=== PATIENT | female | born 1970 | race Caucasian/White ===

== ENCOUNTER 2020-01-10 10:01 | Emergency (ER) | payer OTHER, SELFPAY ==
[2020-01-10 10:46] VITALS: BP 119/70; PULSE 88; RESP 20; TEMP 36.8; O2SAT 97
--- NOTE | 2020-01-10 11:44 | ED.GENADULT ---
HPI - General Adult General Chief complaint: Upper Respiratory Infection Stated complaint: Cough/Chest Congestion/Ear Drainage Time Seen by Provider: 01/10/20 11:44 Source: patient Mode of arrival: ambulatory Limitations: no limitations History of Present Illness HPI narrative: 49-year-old female patient presents to the [facility] with complaints of cold symptoms for the past 2 weeks. Patient states that she is an active smoker. Patient states that she did get a flu shot this year. Patient states that she has had some pain to the left ear. Patient states is been draining some clear fluid for the past 2 weeks but for the past couple days it started draining some yellow fluid and having some pain as well as some pain behind the ear and soreness. Patient states that she has had a stuffy nose, runny nose, a cough and coughing up sputum. Patient states that she is short of breath at times denies any chest pain at this time. Patient states she has taken ibuprofen for her pain but denies any other medications Related Data Home Medications Medication Instructions Recorded Confirmed citalopram 20 mg PO DAILY 10/24/19 10/24/19 empagliflozin [Jardiance] 10 mg PO DAILY 10/24/19 10/24/19 furosemide 20 mg PO DAILY 10/24/19 10/24/19 glipizide 5 mg PO DAILY 10/24/19 01/10/20 lisinopril 20 mg PO DAILY 10/24/19 01/10/20 metformin 1,000 mg PO BID 10/24/19 01/10/20 metoprolol succinate 50 mg PO DAILY 10/24/19 01/10/20 simvastatin 40 mg PO DAILY 10/24/19 01/10/20 omeprazole 20 mg PO DAILY 01/10/20 01/10/20 Allergies Allergy/AdvReac Type Severity Reaction Status Date / Time Penicillins Allergy Unknown BLISTERS Verified 01/10/20 10:49 ALL OVER BODY. moxifloxacin AdvReac Unknown CAUSES Verified 01/10/20 10:49 PROBLEMS WITH HEART Review of Systems Review of Systems: Narrative: CONSTITUTIONAL: Denies fever, chills, or sweats. EYES: Denies visual changes, redness, or discharge. ENT: Positive rhinorrhea, congestion, denies sore throat, positive left otalgia. CARDIOVASCULAR: Denies chest pain, palpitations, or edema. RESPIRATORY: Positive cough with dyspnea. GASTROINTESTINAL: Denies abdominal pain, nausea, vomiting, or diarrhea. GENITOURINARY: Denies dysuria or hematuria. SKIN: Denies rash or itching. MUSCULOSKELETAL: Denies back pain, joint pain, or myalgia. NEUROLOGIC: Denies headache, numbness, or weakness. PSYCHIATRIC: Denies anxiety or depression. [facility] Past Medical History Medical History COPD (chronic obstructive pulmonary disease) Diabetes GERD (gastroesophageal reflux disease) Hyperlipidemia Hypertension Surgical History Surgical History Previous section Social History Social History Smoking packs per day: 0.5 Smoking cigarettes per day: 10.0 Years smoked: 30 Smoking pack-years: 15.00 Smoking status: Current every day smoker Comments At the time of my signature I agree with nursing past medical history, surgical, social, and family history. There is no relevant family history pertinent to the presenting complaint. Exam Narrative: Exam Narrative: GENERAL: Well-appearing, well-nourished, and in no acute distress. HEAD: Normocephalic, atraumatic. EYES: PERRLA and EOMI. ENT: Nares with erythema and edema noted bilaterally, patent, no rhinorrhea or epistaxis. Mucous membranes moist. Posterior pharynx with no erythema, tonsillar margin, exudates or lesions present. There is some erythema noted to the left TM with some drainage noted in the canal. NECK: Supple. No lymphadenopathy CHEST: Patient does have some tightness and wheezing noted to bilateral upper lower lobes on auscultation. No respiratory distress. HEART: Regular rate and rhythm. No murmur heard. Normal peripheral pulses. ABDOMEN: Soft, nontender, nondistended, no
[2020-01-10] MEDS: ALBUTEROL SULFATE NEB 2.5 MG/3 ML INH INHALATION (12:20)
[2020-01-10] MEDS: IPRATROPIUM BR 0.02% INH SOLN 0.5 MG/2.5 ML VIAL INHALATION (12:20)
== END 2020-01-10 12:53 | disposition home or self-care (01) ==
PROVIDERS: Emergency Provider Nurse Practitioner Family
DX: H66.92 Otitis media, unspecified, left ear (principal); J06.9 Acute upper respiratory infection, unspecified; F17.210 Nicotine dependence, cigarettes, uncomplicated; J44.9 Chronic obstructive pulmonary disease, unspecified; E11.9 Type 2 diabetes mellitus without complications; K21.9 Gastro-esophageal reflux disease without esophagitis; E78.5 Hyperlipidemia, unspecified; I10 Essential (primary) hypertension
CPT/HCPCS: 94640; 99213; G0463

== ENCOUNTER 2022-06-03 10:01 | Outpatient (CLI) | payer OTHER, SELFPAY ==
[2022-06-03 11:08] LABS: Hematocrit 46.8 % (37.0-47.0); Hemoglobin 15.8 g/dL (12.0-15.0); Mean Corpuscular HGB Conc 33.8 g/dl (32-36); Mean Corpuscular Volume 94.7 fl (80-100); Platelet Count Result 79 k/mm3 (150-375); Red Blood Count 4.94 M/mm3 (4.2-5.4); Red Cell Distribution Width 14.1 % (11.5-14.5); White Blood Count 5.2 K/mm3 (4.5-10.0)
[2022-06-03 11:18] LABS: INR 1.1; Prothrombin Time 13.8 Seconds (11.1-14.7)
[2022-06-03 11:20] LABS: Alanine Aminotransferase 44 U/L (6-35); Albumin Level 4.1 g/dL (3.5-5.1); Alkaline Phosphatase 188 U/L (38-126); Anion Gap 7 mmol/L (8-16); Aspartate Amino Transferase 40 U/L (14-36); Bilirubin,Total 0.9 mg/dL (0.2-1.3); Blood Urea Nitrogen 9 mg/dL (7-17); Calcium 9.1 mg/dL (8.4-10.2); Carbon Dioxide 27 mmol/L (22-30); Chloride 102 mmol/L (98-107); Estimated Glomerular Filt Rate > 60; Glucose 219 mg/dL (65-110); Sodium 136 mmol/L (137-145)
[2022-06-03 11:40] LABS: Iron 135 ug/dL (37-170)
[2022-06-03 11:50] LABS: Percent Iron Saturation 35 % (20-50)
[2022-06-03 12:12] LABS: Hepatitis B Surface Antigen Negative (Negative)
[2022-06-03 12:18] LABS: HAV RESULT Negative (Negative); Hepatitis B Core IgM Result Negative (Negative)
[2022-06-03 12:30] LABS: Hepatitis C Virus Antibody Negative (Negative)
[2022-06-07 06:34] LABS: Alpha-1-Antitrypsin, QN 185 mg/dL (83-199); Ceruloplasmin 32 mg/dL (18-53)
[2022-06-07 15:06] LABS: Alpha Fetoprotein Tumor Marker 3.4 ng/mL (<6.1)
[2022-06-08 22:49] LABS: LKM 1 Antibody <=20.0 U (<=20.0)
[2022-06-09 23:10] LABS: Mitochondrial (M2) Ab (IgG) <=20.0 U (<=20.0)
[2022-06-10 17:12] LABS: ALT 34 U/L (6-29); Alpha-2-Macroglobulin 288 mg/dL (106-279); Apolipoprotein A1 135 mg/dL (101-198); Fibrosis Score 0.64; Fibrosis Stage F3; GGT 273 U/L (3-70); Haptoglobin 139 mg/dL (43-212); Necroinflammat Act Grade A0-A1; Total Bilirubin 0.7 mg/dL (0.2-1.2)
== END 2022-06-03 10:02 | disposition home or self-care (01) ==
LOC: ANHLAB 10:03
PROVIDERS: PCP Nurse Practitioner Family; Visit Provider Nurse Practitioner Family
DX: R16.2 Hepatomegaly with splenomegaly, not elsewhere classified (principal)
CPT/HCPCS: 36415; 80053; 80074; 81596; 82103; 82105; 82390; 82728; 83520; 83540; 83550; 85027; 85610; 86376

== ENCOUNTER 2022-06-08 10:29 | Emergency (ER) | payer OTHER, SELFPAY ==
--- NOTE | ~2022-06-08 | XR_ITS ---
EXAMINATION: XR foot LT min 3V DATE: 06/08/2022 10:57 INDICATION: Pain and swelling at the lateral aspect of the left forefoot. TECHNIQUE: Dorsoplantar, two oblique and lateral views of the left foot were obtained. COMPARISON: None. FINDINGS: Mild hallux valgus. Alignment is otherwise normal. No fracture. Mild osteoarthritis at the first meta tarsophalangeal and a few interphalangeal joints. No erosions or periosteal reaction. Mild soft tissu e swelling over the dorsolateral aspect of the forefoot. IMPRESSION: 1. No acute osseous abnormality. Reviewed, dictated and finalized at location A.
[2022-06-08 10:36] VITALS: BP 141/76; PULSE 92; RESP 20; TEMP 36.4; O2SAT 97
--- NOTE | 2022-06-08 10:48 | ED.GENADULT ---
HPI - General Adult General Chief complaint: Extremity Injury, Lower Stated complaint: Left foot injury Source: patient Mode of arrival: ambulatory Limitations: no limitations History of Present Illness HPI narrative: Patient presents for evaluation of pain in her left foot since yesterday. She woke from sleep with her pain. Pain is constant, 10/10, sharp, worse with weight bearing and ambulation. The majority of her pain is in plantar and lateral aspect of the foot. No recent injury. She wore high heels the day prior. She states she jumped off a porch a few years ago and had pain thereafter. She did not seek medical attention at that time. Pain has been bothersome since that time. She denies paresthesias. She is diabetic but does not check her BS. She is not taking any medication to assist with her symptoms. No additional complaints or concerns. Related Data Home Medications Medication Instructions Recorded Confirmed glipizide 5 mg tablet 5 mg PO DAILY 10/24/19 06/08/22 lisinopril 20 mg tablet 20 mg PO DAILY 10/24/19 06/08/22 metformin 1,000 mg tablet 1,000 mg PO BID 10/24/19 06/08/22 metoprolol succinate 50 mg 50 mg PO DAILY 10/24/19 06/08/22 tablet,extended release 24 hr simvastatin 40 mg tablet 40 mg PO DAILY 10/24/19 06/08/22 omeprazole 20 mg capsule,delayed 20 mg PO DAILY 01/10/20 06/08/22 release cetirizine 10 mg tablet 10 mg PO DAILY PRN Allergy Symptoms 12/21/21 06/08/22 empagliflozin 10 mg tablet 10 mg PO DAILY 12/21/21 06/08/22 (Jardiance) venlafaxine 75 mg tablet 75 mg PO DAILY 12/21/21 06/08/22 Allergies Allergy/AdvReac Type Severity Reaction Status Date / Time Penicillins Allergy Unknown BLISTERS Verified 06/08/22 10:42 ALL OVER BODY. moxifloxacin AdvReac Unknown CAUSES Verified 06/08/22 10:42 PROBLEMS WITH HEART Review of Systems Review of Systems: CONSTITUTIONAL: Denies fever, chills, or sweats. EYES: Denies visual changes, redness, or discharge. ENT: Denies rhinorrhea, congestion, sore throat, or otalgia. CARDIOVASCULAR: Denies chest pain, palpitations, or edema. RESPIRATORY: Denies cough or dyspnea. GASTROINTESTINAL: Denies abdominal pain, nausea, vomiting, or diarrhea. GENITOURINARY: Denies dysuria or hematuria. SKIN: Denies rash or itching. MUSCULOSKELETAL:Reports pain in the left foot NEUROLOGIC: Denies headache, numbness, dizziness, or weakness. PSYCHIATRIC: Denies anxiety or depression. [facility] Past Medical History Medical History COPD (chronic obstructive pulmonary disease) Diabetes GERD (gastroesophageal reflux disease) Hepatosplenomegaly History of myocarditis Hyperlipidemia Hypertension Surgical History Surgical History Previous section Family History Family History Father Acute myocardial infarction Social History Social History Smoking packs per day: 0.5 Smoking cigarettes per day: 10.0 Years smoked: 30 Smoking pack-years: 15.00 Smoking status: Current every day smoker Alcohol intake: current Alcohol use details: social Substance use: never Living arrangements: alone Gender identity (if verbalized by the patient): Female Sexual Orientation (if Verbalized by the Patient): Straight or Heterosexual Spiritual care concerns: No Exam Narrative: GENERAL: Well-appearing, well-nourished, and in no acute distress. HEAD: Normocephalic, atraumatic. EYES: PERRLA and EOMI. ENT: Nares clear, no rhinorrhea or epistaxis. Mucous membranes moist. Oropharynx without tonsillar hypertrophy exudate or other lesions. Bilateral TMs pearly lugo nonbulging NECK: Supple. No adenopathy or masses. No carotid bruits or JVD CHEST: Clear to auscultation. No respiratory distress. No whee
== END 2022-06-08 11:31 | disposition home or self-care (01) ==
PROVIDERS: Emergency Provider Nurse Practitioner; PCP Nurse Practitioner Family
DX: M25.572 Pain in left ankle and joints of left foot (principal); F17.210 Nicotine dependence, cigarettes, uncomplicated; J44.9 Chronic obstructive pulmonary disease, unspecified; E11.9 Type 2 diabetes mellitus without complications; K21.9 Gastro-esophageal reflux disease without esophagitis; E78.5 Hyperlipidemia, unspecified; I10 Essential (primary) hypertension
CPT/HCPCS: 73630; 99213; G0463

== ENCOUNTER → 2022-06-18 08:32 | Outpatient (CLI) | payer OTHER, SELFPAY ==
--- NOTE | ~2022-06-18 | US_ITS ---
EXAMINATION: US abdomen limited DATE: 06/18/2022 09:03 INDICATION: Hepatosplenomegaly TECHNIQUE: Multiple grayscale and Doppler ultrasound images of the abdomen were obtained. COMPARISON: None available FINDINGS: The head and body of the pancreas are normal. The pancreatic tail is obscured by bowel gas. The liver demonstrates increased echogenicity, heterogenous echotexture, and decreased through trans mission. There is mild nodularity of the liver surface. Normal hepatopetal flow in the main portal ve in. The gallbladder is normal with no abnormal wall thickening, pericholecystic fluid or stones. The normal common bile duct measures 6 mm. There was no sonographic Chou sign. The spleen is normal in appearance and measures 13.3 cm. IMPRESSION: 1. Cirrhosis. Reviewed, dictated and finalized at location L. IMPRESSION: 1. Cirrhosis.
== END ==
LOC: EXPGOSH 14:13 → EXPGOSHRAD 14:30
PROVIDERS: PCP Nurse Practitioner Family; Visit Provider Nurse Practitioner Family
DX: R16.2 Hepatomegaly with splenomegaly, not elsewhere classified (principal); K74.60 Unspecified cirrhosis of liver
CPT/HCPCS: 76705

== ENCOUNTER 2022-09-09 11:13 | Emergency (ER) | payer OTHER, SELFPAY ==
--- NOTE | 2022-09-09 11:15 | ED.URI ---
HPI - URI/Sore Throat General Chief Complaint: Upper Respiratory Infection Stated Complaint: Chest Congestion/Cough Time Seen by Provider: 09/09/22 11:15 Source: patient Mode of arrival: ambulatory Limitations: no limitations History of Present Illness HPI Narrative: Ms. Washington is a 52-year-old female patient presenting to the clinic today with complaints of cough and chest congestion x2 to 3 weeks. She report she has had a productive cough at times with yellow phlegm. She denies any fever or chills. History of COPD. Has mild shortness of breath at times. She denies any known exposure to anyone with COVID, flu, or strep MD elicited complaint: cough and other (Chest congestion) Related Data Home Medications Medication Instructions Recorded Confirmed glipizide 5 mg tablet 5 mg PO DAILY 10/24/19 06/24/22 lisinopril 20 mg tablet 20 mg PO DAILY 10/24/19 06/24/22 metformin 1,000 mg tablet 1,000 mg PO BID 10/24/19 06/24/22 metoprolol succinate 50 mg 50 mg PO DAILY 10/24/19 06/24/22 tablet,extended release 24 hr simvastatin 40 mg tablet 40 mg PO DAILY 10/24/19 06/24/22 cetirizine 10 mg tablet 10 mg PO DAILY PRN Allergy Symptoms 12/21/21 06/24/22 empagliflozin 10 mg tablet 10 mg PO DAILY 12/21/21 06/24/22 (Jardiance) venlafaxine 75 mg tablet 75 mg PO DAILY 12/21/21 06/24/22 Allergies Allergy/AdvReac Type Severity Reaction Status Date / Time Penicillins Allergy Unknown BLISTERS Verified 06/24/22 09:27 ALL OVER BODY. moxifloxacin AdvReac Unknown CAUSES Verified 06/24/22 09:27 PROBLEMS WITH HEART Review of Systems Review of Systems: Pertinent positives per HPI. Patient denies any fever, chills, rash, headache, visual changes, dizziness, shortness of breath, chest pain, palpitations, nausea, vomiting, diarrhea, constipation, abdominal pain, or any urinary issues. [facility] Past Medical History Medical History Change in voice Cirrhosis COPD (chronic obstructive pulmonary disease) Diabetes Elevated liver enzymes GERD (gastroesophageal reflux disease) Hepatosplenomegaly History of myocarditis Hyperlipidemia Hypertension Obese Tobacco use Surgical History Surgical History Previous section Family History Family History Father Acute myocardial infarction Social History Social History Smoking packs per day: 0.5 Smoking cigarettes per day: 10.0 Years smoked: 30 Smoking pack-years: 15.00 Smoking status: Current every day smoker Alcohol intake: current Alcohol use details: social Substance use: never Gender identity (if verbalized by the patient): Female Sexual Orientation (if Verbalized by the Patient): Straight or Heterosexual Spiritual care concerns: No Comments At the time of my signature, I reviewed and agree with the nursing past medical, surgical, social, and family history. There is no relevant family history pertinent to the patient complaint. Exam Narrative: General: Well-developed, morbidly obese, in no apparent distress Head: Normocephalic, atraumatic Eyes: Pupils equally round and reactive to light bilaterally, EOM intact, sclera and conjunctive clear, no discharge, lids normal Ears: Left TMs intact and dull, right TM intact, red, with bulging, ear canals clear, no drainage, grossly hearing normal. Nose: Nares patent, clear nasal discharge, mild inflammation, no sinus tenderness. Mouth: Oral pharynx without lesions or masses, good dentition, MMM. Postnasal drip Neck: Supple, trachea midline, no enlargement of anterior or posterior cervical nodes, no thyroid masses or goiter palpable. Cardio: Regular rate and rhythm, s1 and s2 normal, no murmur appreciated. Resp: Expiratory wheezing with mild rhonchi, no rales or rubs Course Course Emergency Course:
[2022-09-09 11:24] VITALS: BP 122/60; PULSE 88; RESP 20; TEMP 36.4; O2SAT 97
== END 2022-09-09 11:51 | disposition home or self-care (01) ==
PROVIDERS: Emergency Provider Nurse Practitioner Family; PCP Nurse Practitioner Family
DX: H66.91 Otitis media, unspecified, right ear (principal); J40 Bronchitis, not specified as acute or chronic; F17.210 Nicotine dependence, cigarettes, uncomplicated; J44.9 Chronic obstructive pulmonary disease, unspecified; E11.9 Type 2 diabetes mellitus without complications; K21.9 Gastro-esophageal reflux disease without esophagitis; E78.5 Hyperlipidemia, unspecified; I10 Essential (primary) hypertension; E66.9 Obesity, unspecified; Z68.42 Body mass index [BMI] 45.0-49.9, adult; K74.60 Unspecified cirrhosis of liver; Z79.84 Long term (current) use of oral hypoglycemic drugs
CPT/HCPCS: 99213; G0463

== ENCOUNTER 2022-12-04 17:47 | Emergency (ER) | payer OTHER, SELFPAY ==
[2022-12-04 17:50] VITALS: BP 116/85; PULSE 110; RESP 20; TEMP 37.1; O2SAT 97
[2022-12-04 17:58] VITALS: BP 116/85; PULSE 110; RESP 20; TEMP 37.1; O2SAT 97
--- NOTE | 2022-12-04 18:06 | ED.URI ---
HPI - URI/Sore Throat General Chief Complaint: Upper Respiratory Infection Stated Complaint: cough Time Seen by Provider: 12/04/22 18:07 History of Present Illness HPI Narrative: Patient presents with a cough. Patient states she was diagnosed with pneumonia a couple weeks ago and treated with antibiotic which she thinks has resolved but she continues to have a cough. No shortness of breath and no chest pain. No fever. Patient is not taking anything [id number] for her cough. Related Data Home Medications Medication Instructions Recorded Confirmed glipizide 5 mg tablet 5 mg PO DAILY 10/24/19 12/04/22 lisinopril 20 mg tablet 20 mg PO DAILY 10/24/19 12/04/22 metformin 1,000 mg tablet 1,000 mg PO BID 10/24/19 12/04/22 metoprolol succinate 50 mg 50 mg PO DAILY 10/24/19 12/04/22 tablet,extended release 24 hr simvastatin 40 mg tablet 40 mg PO DAILY 10/24/19 12/04/22 cetirizine 10 mg tablet 10 mg PO DAILY PRN Allergy Symptoms 12/21/21 12/04/22 empagliflozin 10 mg tablet 10 mg PO DAILY 12/21/21 12/04/22 (Jardiance) venlafaxine 75 mg tablet 75 mg PO DAILY 12/21/21 12/04/22 montelukast 10 mg tablet 10 mg PO DIRECTED 12/04/22 12/04/22 Allergies Allergy/AdvReac Type Severity Reaction Status Date / Time Penicillins Allergy Unknown BLISTERS Verified 12/04/22 17:55 ALL OVER BODY. moxifloxacin AdvReac Unknown CAUSES Verified 12/04/22 17:55 PROBLEMS WITH HEART Review of Systems Review of Systems: CONSTITUTIONAL: Denies chills, or sweats. Reports fever and generalized body aches EYES: Denies visual changes, redness, or discharge. ENT: Denies otalgia. Reports nasal congestion runny nose and sore throat CARDIOVASCULAR: Denies chest pain, palpitations, or edema. RESPIRATORY: Denies dyspnea. Reports occasional cough GASTROINTESTINAL: Denies abdominal pain, nausea, vomiting, or diarrhea. GENITOURINARY: Denies dysuria or hematuria. SKIN: Denies rash or itching. MUSCULOSKELETAL: Denies back pain, joint pain, or myalgia. Reports generalized body aches NEUROLOGIC: Denies headache, numbness, or weakness. PSYCHIATRIC: Denies anxiety or depression. [facility] Past Medical History Medical History Change in voice Cirrhosis COPD (chronic obstructive pulmonary disease) Diabetes Elevated liver enzymes GERD (gastroesophageal reflux disease) Hepatosplenomegaly History of myocarditis Hyperlipidemia Hypertension Obese Tobacco use Surgical History Surgical History Previous section Family History Family History Father Acute myocardial infarction Social History Social History Smoking packs per day: 0.5 Smoking cigarettes per day: 10.0 Years smoked: 30 Smoking pack-years: 15.00 Smoking status: Current every day smoker Alcohol intake: current Alcohol use details: social Substance use: never Gender identity (if verbalized by the patient): Female Sexual Orientation (if Verbalized by the Patient): Straight or Heterosexual Spiritual care concerns: No Comments At time of signature, agree with nursing past medical, surgical, social and family history. There is no relevant family history pertinent to the presenting complaint Exam Narrative: GENERAL: Well-appearing, well-nourished, and in no acute distress. HEAD: Normocephalic, atraumatic. EYES: PERRLA and EOMI. ENT: Nares clear, no rhinorrhea or epistaxis. Mucous membranes moist. NECK: Supple. CHEST: Clear to auscultation. No respiratory distress. Few scattered expiratory wheezes otherwise clear all lung cervantes HEART: Regular rate and rhythm. No murmur heard. Normal peripheral pulses. ABDOMEN: Soft, nontender, nondistended, normal active bowel sounds. EXTREMITIES: Normal range of motion. No edema. SKIN: Warm, dry, no rash. NEURO: No focal
== END 2022-12-04 18:14 | disposition home or self-care (01) ==
PROVIDERS: Emergency Provider Nurse Practitioner Family; PCP Nurse Practitioner Family
DX: J06.9 Acute upper respiratory infection, unspecified (principal); J40 Bronchitis, not specified as acute or chronic; F17.210 Nicotine dependence, cigarettes, uncomplicated; K74.60 Unspecified cirrhosis of liver; J44.9 Chronic obstructive pulmonary disease, unspecified; E11.9 Type 2 diabetes mellitus without complications; K21.9 Gastro-esophageal reflux disease without esophagitis; E78.5 Hyperlipidemia, unspecified; I10 Essential (primary) hypertension
CPT/HCPCS: 99213; G0463

== ENCOUNTER 2022-12-14 09:47 | Outpatient (CLI) | payer OTHER, SELFPAY | END 2022-12-14 09:48 | disposition home or self-care (01) | LOC: ANHBWCAUD 09:47 | PROVIDERS: PCP Nurse Practitioner Family; Visit Provider Otolaryngology | DX: H66.91 Otitis media, unspecified, right ear (principal) | CPT/HCPCS: 92557; 92567 ==

== ENCOUNTER 2024-03-27 16:03 | Outpatient (CLI) | payer OTHER, SELFPAY ==
[2024-03-27 16:57] LABS: Hematocrit 50.3 % (37.0-47.0); Hemoglobin 16.9 g/dL (12.0-15.0); Immature Platelet Fraction Pct 11.3 % (0.9-11.2); Mean Corpuscular HGB Conc 33.6 g/dl (32-36); Mean Corpuscular Hemoglobin 31.3 pg (26-34); Mean Corpuscular Volume 93.1 fl (80-100); Mean Platelet Volume 12.1 fl (7.4-10.4); Platelet Count Result 100 k/mm3 (150-375); Red Cell Distribution Width 13.7 % (11.5-14.5); White Blood Count 5.3 K/mm3 (4.5-10.0)
[2024-03-27 17:08] LABS: Prothrombin Time 13.9 Seconds (11.1-14.7)
[2024-03-27 17:09] LABS: Alanine Aminotransferase 58 U/L (6-35); Albumin Level 4.3 g/dL (3.5-5.1); Alkaline Phosphatase 190 U/L (38-126); Anion Gap 8 mmol/L (4-12); Aspartate Amino Transferase 43 U/L (14-36); Bilirubin,Total 0.8 mg/dL (0.2-1.3); Blood Urea Nitrogen 9 mg/dL (7-17); Calcium 9.8 mg/dL (8.4-10.2); Carbon Dioxide 25 mmol/L (22-30); Chloride 105 mmol/L (98-107); Estimated Glomerular Filt Rate > 60; Glucose 169 mg/dL (65-110); Potassium 3.7 mmol/L (3.4-5.0); Sodium 138 mmol/L (137-145)
[2024-03-29 11:08] LABS: Alpha Fetoprotein Tumor Marker 2.6 ng/mL
== END 2024-03-27 16:04 | disposition home or self-care (01) ==
LOC: ANHLAB 16:04
PROVIDERS: PCP Nurse Practitioner Family; Visit Provider Nurse Practitioner Family
DX: K74.60 Unspecified cirrhosis of liver (principal); R74.8 Abnormal levels of other serum enzymes
CPT/HCPCS: 36415; 80053; 82105; 85027; 85055; 85610

== ENCOUNTER 2024-10-08 12:25 | Emergency (ER) | payer OTHER, SELFPAY ==
[2024-10-08 12:45] VITALS: BP 109/73; PULSE 93; RESP 20; TEMP 36.7; O2SAT 98
--- NOTE | 2024-10-08 13:39 | ED_ITS ---
HPI - URI/Sore Throat General Chief Complaint: Upper Respiratory Infection Stated Complaint: Cough/Chest Congestion Time Seen by Provider: 10/08/24 13:20 Source: patient, RN notes reviewed and old records reviewed Mode of arrival: ambulatory Limitations: no limitations History of Present Illness HPI Narrative: 54 year old female who presents to express care with complaints of cough, post nasal congestion and drainage, chest congestion and some ear pain for the past 2 days. Patient has history of COPD and continues to smoke 1/2 ppd of cigarettes and has inhaler and has not used it lately or taken any OTC medications for her symptoms.Patient has no fevers noted or any acute dyspnea. MD elicited complaint: cough, rhinorrhea and nasal congestion Pertinent past history: COPD and other (tobacco abuse) Onset (ago): day(s) (2) Consistency: constant Severity: moderate Able to tolerate fluids by mouth: Yes Treatments prior to arrival: none Related Data Home Medications Medication Instructions Recorded Confirmed metformin 1,000 mg tablet 1,000 mg PO BID 10/24/19 10/08/24 metoprolol succinate 50 mg 50 mg PO DAILY 10/24/19 10/08/24 tablet,extended release 24 hr simvastatin 40 mg tablet 40 mg PO DAILY 10/24/19 10/08/24 cetirizine 10 mg tablet 10 mg PO DAILY PRN Allergy Symptoms 12/21/21 10/08/24 empagliflozin 10 mg tablet 10 mg PO DAILY 12/21/21 10/08/24 (Jardiance) montelukast 10 mg tablet 10 mg PO DIRECTED 12/04/22 10/08/24 dulaglutide 4.5 mg/0.5 mL 4.5 mg subcut WEEKLY 03/27/24 10/08/24 subcutaneous pen injector (Trulicity) losartan 25 mg tablet 25 mg PO DAILY 03/27/24 10/08/24 phentermine 30 mg capsule 30 mg PO DAILY 03/27/24 10/08/24 oxybutynin chloride 2.5 mg tablet 2.5 mg PO DAILY 06/22/24 10/08/24 Allergies Allergy/AdvReac Type Severity Reaction Status Date / Time moxifloxacin Allergy Unknown CAUSES Verified 06/22/24 11:21 PROBLEMS WITH HEART Penicillins Allergy Unknown BLISTERS Verified 03/27/24 14:51 ALL OVER BODY. Review of Systems Review of Systems: CONSTITUTIONAL: Denies malaise, chills, sweats, or fever. EYES: Denies visual changes, redness, or discharge. ENT: Reports rhinorrhea, congestion, sinus pain,positive for otalgia and sore throat. CARDIOVASCULAR: Denies chest pain, palpitations, or edema. RESPIRATORY: Reports cough.? Denies dyspnea. GASTROINTESTINAL: Denies abdominal pain, nausea, vomiting, diarrhea SKIN: Denies rash or itching. MUSCULOSKELETAL: Denies myalgia. NEUROLOGIC: Denies headache. All systems reviewed & are unremarkable except as noted in HPI and below PMFSH Past Medical History Medical History Barretts esophagus Change in voice Cirrhosis COPD (chronic obstructive pulmonary disease) Diabetes Elevated liver enzymes GERD (gastroesophageal reflux disease) Hepatosplenomegaly History of myocarditis Hyperlipidemia Hypertension Obese Tobacco use Surgical History Surgical History Previous section Family History Family History Father Acute myocardial infarction Social History Social History Smoking packs per day: 0.5 Smoking cigarettes per day: 10.0 Years smoked: 30 Smoking pack-years: 15.00 Smoking status: Current every day smoker Tobacco type: cigarettes Alcohol intake: current Alcohol use details: social Substance use: never Substance use type: does not use Living arrangements: alone Gender identity (if verbalized by the patient): Female Sexual Orientation (if Verbalized by the Patient): Straight or Heterosexual Spiritual care concerns: No Comments At time of signature, agree with nursing past medical, surgical, social and family history. There is no relevant family history pertinent to the presenting complaint Exam Narrative: GENERAL: Well-appearing, well-nourished, and in no acute distress. HEAD: Normocephalic EYES: PERRLA, conjunctivae clear ENT: Nares clear, turbinates edematous and erythematous, clear discharge. Mucous membranes moist. TM pearly lugo with dull light reflex bilaterally; no tragal tenderness. Oropharynx erythematous without lesions. Tonsils not enlarged and without exudate, no drooling, no hoarseness, no trismus, uvula midline.post nasal discharge NECK: Supple. No lymphadenopathy CHEST: scattered wheezing on auscultation, breath sounds equal. positive for wheezing, no rhonchi, rales, or stridor. No respiratory distress, speaks in full sentences.cough present, SAO2 98% on room air HEART: Regular rate and rhythm. No murmur heard. SKIN: Warm, dry, no rash. NEURO: Alert and oriented x3. PSYCH: Normal mood and affect Course Course Emergency Course: Patient is aware of diagnosis, understands and agrees to treatment plan.? Anticipatory guidance given.? Patient agrees to follow-up as directed and is aware of reasons to seek care at the emergency department. Portions of this record may have been created with voice recognition software Level of Care: Express Care Visit Vital Signs Vital signs: Vital Signs Temperature 36.7 C 10/08/24 12:45 Pulse Rate 93 10/08/24 12:45 Respiratory Rate 20 10/08/24 12:45 Blood Pressure 109/73 10/08/24 12:45 Pulse Oximetry 98 10/08/24 12:45 Temperature 36.7 C 10/08/24 12:45 Pulse Rate 93 10/08/24 12:45 Respiratory Rate 20 10/08/24 12:45 Blood Pressure 109/73 10/08/24 12:45 Pulse Oximetry 98 10/08/24 12:45 Reviewed MDM - URI/Sore Throat MDM Narrative Medical decision making narrative: Differential diagnosis considered: Painter virus, strep pharyngitis, allergic rhinitis, upper respiratory tract infection, sinusitis, rhinosinusitis, nasopharyngitis. viral pharyngitis, otitis media, otitis externa, pneumonia, bronchitis, viral cough syndrome, viral syndrome, and influenza.? Exam findings show no acute concerns or changes; patient is non-toxic appearing and is in no distress.? Patient is appropriate for outpatient treatment and follow-up. Differential Diagnosis Differential diagnosis: Likely upper respiratory infection, otitis media, viral infection and other (COPD exacerbation) Medical Records Attestation: I reviewed the patient's medical records. Lab Data Attestation: I reviewed the patient's lab results. Critical Care Time Critical Care Time Critical Care Time: No Discharge Plan Discharge Clinical Impression: COPD exacerbation Patient Disposition: Home, Self-Care Condition: Stable Instructions: Antibiotic Form, COPD (Chronic Obstructive Pulmonary Disease) (ED) Additional Instructions: Increase fluids especially juices and water [id number] cough and cold medicine of your choice for your symptoms Zyrtec . Claritin or Anastacia daily with Coricidin decongestant Cough tablets as directed for cough--do not bite, chew or suck on--swallow whole Continue your inhaler/nebulizer as directed Steroids as directed--take with food, monitor your glucose levels daily and maintain your diet restriction heat to the face 20-30 minutes 4-6 times a day for pain Salt water gargles, throat lozenges or throat sprays as desired If your symptoms persist, change or worsen significantly before you can contact your personal physician then please, without delay, go to the emergency department for further evaluation. Follow-up with PCP in 7-10 days or sooner if needed Quit smoking Prescriptions: New prednisone 20 mg tablet 20 mg PO BID Qty: 10 0RF Rx Instructions: take with food am and early PM benzonatate 200 mg capsule 200 mg PO TID PRN (Reason: cough) Qty: 20 0RF No Action metoprolol succinate 50 mg Tablet Extended Release 24 Hr 50 mg PO DAILY simvastatin 40 mg Tablet 40 mg PO DAILY metformin 1,000 mg Tablet 1,000 mg PO BID montelukast 10 mg tablet 10 mg PO DIRECTED (DME) Aerochamber MV Spacer See Rx Instructions .Route Qty: 1 0RF Rx Instructions: As directed Jardiance 10 mg tablet 10 mg PO DAILY cetirizine 10 mg tablet 10 mg PO DAILY PRN (Reason: Allergy Symptoms) losartan 25 mg tablet 25 mg PO DAILY phentermine 30 mg capsule 30 mg PO DAILY Rx Instructions: must administer 2 hours after breakfast Trulicity 4.5 mg/0.5 mL pen injector 4.5 mg subcut WEEKLY oxybutynin chloride 2.5 mg tablet 2.5 mg PO DAILY omeprazole 20 mg capsule,delayed release(DR/EC) See Rx Instructions .ROUTE .COMPLEX Qty: 180 3RF Dose Instruction: TAKE 2 CAPSULES(40 MG) BY MOUTH DAILY Rx Instructions: TAKE 2 CAPSULES(40 MG) BY MOUTH DAILY Follow-up/Referrals: Alyx,Amita Mack APN [Primary Care Provider] - Time of Disposition: 14:02 [place] Coma Scale Eyes: Open Verbal: Oriented and Alert Motor: Follows Commands [place] Coma Total Score: 15
== END 2024-10-08 14:10 | disposition home or self-care (01) ==
PROVIDERS: Emergency Provider Registered Nurse; PCP Nurse Practitioner Family
DX: J44.1 Chronic obstructive pulmonary disease with (acute) exacerbation (principal); F17.210 Nicotine dependence, cigarettes, uncomplicated; I10 Essential (primary) hypertension; E11.9 Type 2 diabetes mellitus without complications; Z79.84 Long term (current) use of oral hypoglycemic drugs; K22.70 Barrett's esophagus without dysplasia; K74.60 Unspecified cirrhosis of liver; K21.9 Gastro-esophageal reflux disease without esophagitis; E78.5 Hyperlipidemia, unspecified; E66.9 Obesity, unspecified; Z68.41 Body mass index [BMI] 40.0-44.9, adult
CPT/HCPCS: 99213; G0463

== ENCOUNTER 2025-04-20 17:19 | Emergency (ER) | payer OTHER, SELFPAY ==
--- NOTE | ~2025-04-20 | XR_ITS ---
[id number] Ordering provider: Katya Waldrop NP History: . fall. rt. rib pain . Comparison: None. FINDINGS: BONES: Highly suggestive fracture of the right eighth rib. LUNGS: No effusions or infiltrates. No pneumothorax. SOFT TISSUES: Normal. IMPRESSION: Highly suggestive fracture of the right eighth rib. Follow-up advised. Reviewed, dictated and finalized at location A.
--- OUTSIDE RECORDS SUMMARY | 2025-04-20 17:29 | XMS_ITS | Data Portability ---
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 Plan of Treatment Reminders Order Date Submit Date Provider Last Modified By Organization Details Last Modified Time Details Appointments ANY 2024 09:15A M Shmuel Thakkar MD Not available Not available Not available ANY 2024 08:30A M Amita Johnson NO[employer] TESTER, [employer] Not available Not available Not available Lab HbA1c (hemoglob in A1c), blood 2024 025 In-Office Order, Internal Use Only DO Not Attach Compendium DO Not Attach Compendium, Do Not Delete/merge, [id number] 03/28/2025 10:10:56 rapid SARS CoV 2 Ag, QL IA, respirato ry specimen 2024 025 In-Office Order, Internal Use Only DO Not Attach Compendium DO Not Attach Compendium, Do Not Delete/merge, [id number] 12/26/2024 16:01:37 rapid flu (A+B) 2024 025 In-Office Order, Internal Use Only DO Not Attach Compendium DO Not Attach Compendium, Do Not Delete/merge, [id number] 12/26/2024 16:01:37 Referral None recorded. Procedures None recorded. Surgeries None recorded. Imaging CT, angiogram , coronary arteries, w/ contrast 2024 025 [facility] - [address], [address] [place], [address], 04/03/2025 10:21:56 XR, chest, 2 [facility], [address] [place], [address], 01/31/2025 16:16:04 Medication Orders Jardiance 25 mg tablet [facility]24 [facility], [address], [place], [place], [id number], 03/28/2025 10:10:46 nystatin 100,000 unit/gram topical cream 2024 [facility], [address], [place], [place], [id number], 03/28/2025 10:11:50 fluconazo le 150 mg tablet 2024 [facility], [address], [place], [place], [id number], 03/28/2025 10:10:44 Lasix 20 mg tablet 2024 [facility], [address], [place], [place], [id number], 03/05/2025 15:05:39 potassium chloride ER 20 mEq tablet,ex tended release 2024 [facility], [address], [place], [place], [id number], 03/05/2025 15:05:38 cefdinir 300 mg capsule 2024 [facility], [address], [place], [place], [id number], 03/05/2025 14:37:57 albuterol sulfate 2.5 mg/3 mL (0.083 %) solution for nebulizat ion 2024 Not available 02/12/2025 11:16:38 Symbicort 80 mcg-4.5 mcg/actua tion HFA aerosol inhaler 2024 [facility] #50862, [address], [place], [place], [id number], 03/05/2025 14:38:14 doxycycli ne hyclate 100 mg capsule 2024 [facility] #53844, [address], [place], [place], [id number], 01/31/2025 14:34:27 benzonata te 200 mg capsule 2024 [facility] #49461, [address], [place], [place], [id number], 01/31/2025 14:34:21 Patient TargetsNo targets recorded. Patient Instructions Encounter Date Encounter Id Patient Instructions Last Modified By Organization Details Last Modified Time 12/26/2024 [id number] A healthy lifest yle: care instructions Not available 12/26/2024 16:11:14 cough: care instructions Not available 12/26/2024 16:01:37 Take all antibio tics prescribed to you. If any fever or increase in pain, call/return to office. Not available 12/26/2024 16:09:22 keep f/u as planned Not availa ble 12/26/2024 16:09:59 01/31/2025 [id number] A healthy lifest yle: care instructions Not available 01/31/2025 14:49:54 cough: care instructions Not available 01/31/2025 14:49:54 chronic obstruct manny pulmonary disease (COPD): care instructions Not available 01/31/2025 16:05:04 learning about c opd and how to prevent lung infections Not available 01/31/2025 16:05:04 If any fever or increase in pain, call/return to office. Not available 01/31/2025 16:05:48 keep f/u as planned Not availa ble 01/31/2025 14:48:30 02/12/2025 [id number] ear infection (otitis media): care instructions [email or web address] Not available 02/12/2025 11:11:18 COPD exacerbatio n plan: care instructions [email or web address] Not available 02/12/2025 11:11:18 chronic obstruct manny pulmonary disease (COPD) flare-ups: care instructions [email or web address] Not available 02/12/2025 11:11:18 Plan of care has been discussed with patient including expected therapeutic benefits and potential side effects of prescribed medication and treatments. Patient verbalizes understanding and is in agreement with the plan of care. Patient was instructed to keep all scheduled appointments and contact the clinic for any additional problems. [email or web address] Not available 02/26/2025 07:06:41 03/05/2025 [id number] Quitting Tobacco : Care Instructions [email or web address] Not available 03/05/2025 15:00:25 A healthy lifest yle: care instructions [email or web address] Not available 03/05/2025 15:00:25 03/28/2025 [id number] deciding about u sing medicines to quit smoking Not available 03/28/2025 10:14:07 Quitting Tobacco : Care Instructions Not available 03/28/2025 10:14:06 learning about t ype 2 diabetes Not available 03/28/2025 10:10:38 type 2 diabetes: care instructions Not available 03/28/2025 10:10:38 cholesterol and triglycerides tests: about these tests Not available 03/28/2025 10:14:07 gastroesophageal reflux disease (GERD): care instructions Not available 03/28/2025 10:14:06 chronic obstruct manny pulmonary disease (COPD): care instructions Not available 03/28/2025 10:10:38 learning about c opd and how to prevent lung infections Not available 03/28/2025 10:10:38 learning about h igh blood pressure Not available 03/28/2025 10:13:08 vaginal yeast infection: care instructions Not available 03/28/2025 10:10:38 A healthy lifest yle: care instructions Not available 03/28/2025 10:10:38 Continue to work on diet and decrease A1C to < 7 with fasting glucose 100. Needs to see eye dr. Increase activity level to get exercise most days of the week. Work on eating more fresh fruit, veggies and lean protein and less packaged foods. Take all medications as prescribed. Keep appointments with PCP and all specialists. Cut back on the fatty foods, add fish oil or omega three fatty acids; red yeast rice may also help. Drink more water! Low salt diet. cancer screenings needed for breast cancer, colon cancer. Not available 03/28/2025 10:14:39 f/u 3 months Not available 06/2025 08:52:48 Reason for Referral None Reported. Results Created Date Observation Date Name Description Value Unit Range Abnormal Flag Note LastModifiedBy Organization Detail LastModifiedTime 12/26/1912/26/2024 rapid flu (A+B) Flu A negati ve Not Available In-Office Order Internal Use Only DO Not Attach Compendium DO Not Attach Compendium, Do Not Delete/merge, [id number] 12/26/2024 16:00:51 12/26/1912/26/2024 rapid flu (A+B) Flu B negati ve Not Available In-Office Order Internal Use Only DO Not Attach Compendium DO Not Attach Compendium, Do Not Delete/merge, [id number] 12/26/2024 16:00:51 12/26/1912/26/2024 rapid SARS CoV 2 Ag, QL IA, respi rator y speci men rapid SARS CoV 2 Ag, QL IA, respiratory specimen negati ve Not Available In-Office Order Internal Use Only DO Not Attach Compendium DO Not Attach Compendium, Do Not Delete/merge, [id number] 12/26/2024 16:00:50 02/19/20 25 02/18/2025 CBC W Auto Diffe renti al panel - Blood leukocytes [#/volume] in blood by automated count 4.56 text: 4.00 - 12.00 10(3)/ mcL WBC 4.56 4.00 - 12.00 10(3) /mcL 02/18 9:02 PM CDT [facility] Not Available Not Available 02/25/2025 12:10:13 02/19/20 25 02/18/2025 CBC W Auto Diffe renti al panel - Blood erythrocytes [#/volume] in blood by automated count 5.22 text: 3.80 - 5.30 10(6)/ mcL RBC 5.22 3.80 - 5.30 10(6) /mcL 02/18 9:02 PM CDT [facility] Not Available Not Available 02/25/2025 12:10:13 02/19/20 25 02/18/2025 CBC W Auto Diffe renti al panel - Blood hemoglobin [mass/volume ] in blood 16.4 g/dL low: 12g/dL high: 15.8g/ dL high HEMOG LOBIN (HGB) 16.4 (H) 12.0 - 15.8 g/dL 02/18 9:02 PM CDT [facility] Not Available Not Available 02/25/2025 12:10:13 02/19/2002/18/2025 CBC W Auto Diffe renti al panel - Blood hematocrit [volume fraction] of blood by automated count 49.5 % low: 36%hig h: 47% high HEMAT OCRIT (HCT) 49.5 (H) 36.0 - 47.0 % 02/18 9:02 PM CDT [facility] Not Available Not Available 02/25/2025 12:10:13 02/19/20 25 02/18/2025 CBC W Auto Diffe renti al panel - Blood MCV [entitic mean volume] in red blood cells by automated count 94.8 fL low: 82fLhi gh: 96fL MCV 94.8 82.0 - 96.0 fL 02/18 9:02 PM CDT [facility] [facility] Not Available Not Available 02/25/2025 12:10:13 02/19/20 25 02/18/2025 CBC W Auto Diffe renti al panel - Blood MCH [entitic mass] by automated count 31.4 pg low: 26pghi gh: 34pg MCH 31.4 26.0 - 34.0 pg 02/18 9:02 PM CDT [facility] [facility] Not Available Not Available 02/25/2025 12:10:13 02/19/2002/18/2025 CBC W Auto Diffe renti al panel - Blood MCHC [entitic mass/volume] in red blood cells by automated count 33.1 g/dL low: 31g/dL high: 36g/dL MCHC 33.1 31.0 - 36.0 g/dL 02/18 9:02 PM CDT [facility] [facility] Not Available Not Available 02/25/2025 12:10:13 02/19/20 25 02/18/2025 CBC W Auto Diffe renti al panel - Blood platelets [#/volume] in blood 106 text: 140 - 440 10(3)/ mcL low PLATE LET COUNT 106 (L) 140 - 440 10(3) /mcL 02/18 9:02 PM CDT [facility] [employer] [facility] Not Available Not Available 02/25/2025 12:10:13 02/19/20 25 02/18/2025 CBC W Auto Diffe renti al panel - Blood erythrocyte [distwidth] in red blood cells by automated count 14.4 % low: 11.8%h igh: 15.5% RDW 14.4 11.8 - 15.5 % 02/18 9:02 PM CDT [facility] [employer] [facility] Not Available Not Available 02/25/2025 12:10:13 02/19/20 25 02/18/2025 CBC W Auto Diffe renti al panel - Blood platelet [entitic mean volume] in blood by automated count 12.2 fL low: 9.7fLh igh: 12.4fL MPV 12.2 9.7 - 12.4 fL 02/18 9:02 PM CD[facility] Not Available Not Available 02/25/2025 12:10:13 02/19/20 25 02/18/2025 CBC W Auto Diffe renti al panel - Blood neutrophils/ leukocytes in blood by automated count 66 % low: 47%hig h: 73% NEUTR OPHIL S 66.0 47.0 - 73.0 % 02/18 9:02 PM CDT [facility] Not Available Not Available 02/25/2025 12:10:13 02/19/20 25 02/18/2025 CBC W Auto Diffe renti al panel - Blood lymphocytes/ leukocytes in blood by automated count 24.1 % low: 18%hig h: 42% LYMPH OCYTE S 24.1 18.0 - 42.0 % 02/18 9:02 PM CDT [facility] Not Available Not Available 02/25/2025 12:10:13 02/19/20 25 02/18/2025 CBC W Auto Diffe renti al panel - Blood monocytes/le ukocytes in blood by automated count 7.9 % low: 4%high : 12% MONOC YTES 7.9 4.0 - 12.0 % 02/18 9:02 PM CDT [facility] Not Available Not Available 02/25/2025 12:10:13 02/19/20 25 02/18/2025 CBC W Auto Diffe renti al panel - Blood eosinophils/ leukocytes in blood by automated count 1.3 % low: 0%high : 5% EOSIN OPHIL S 1.3 0.0 - 5.0 % 02/18 9:02 PM CDT [facility] Not Available Not Available 02/25/2025 12:10:13 02/19/20 25 02/18/2025 CBC W Auto Diffe renti al panel - Blood basophils/le ukocytes in blood by automated count 0.7 % low: 0%high : 1% BASOP HILS 0.7 0.0 - 1.0 % 02/18 9:02 PM CDT [facility] [employer] [facility] Not Available Not Available 02/25/2025 12:10:13 02/19/20 25 02/18/2025 CBC W Auto Diffe renti al panel - Blood neutrophils [#/volume] in blood by automated count 3.01 text: 1.60 - 7.70 10(3)/ mcL ABSOL CHENEGA NEUTR OPHIL S 3.01 1.60 - 7.70 10(3) /mcL 02/18 9:02 PM CDT [facility] [employer] [facility] Not Available Not Available 02/25/2025 12:10:13 02/19/20 25 02/18/2025 CBC W Auto Diffe renti al panel - Blood lymphocytes [#/volume] in blood by automated count 1.1 text: 1.30 - 3.20 10(3)/ mcL low ABSOL CHENEGA LYMPH OCYTE S 1.10 (L) 1.30 - 3.20 10(3) /mcL 02/18 9:02 PM CDT [facility] [employer] [facility] Not Available Not Available 02/25/2025 12:10:13 02/19/20 25 02/18/2025 CBC W Auto Diffe renti al panel - Blood monocytes [#/volume] in blood by automated count 0.36 text: 0.20 - 1.00 10(3)/ mcL ABSOL CHENEGA MONOC YTES 0.36 0.20 - 1.00 10(3) /mcL 02/18 9:02 PM CDT [facility] [employer] [facility] Not Available Not Available 02/25/2025 12:10:13 02/19/20 25 02/18/2025 CBC W Auto Diffe renti al panel - Blood eosinophils [#/volume] in blood by automated count 0.06 text: 0.00 - 0.40 10(3)/ mcL ABSOL CHENEGA EOSIN OPHIL 0.06 0.00 - 0.40 10(3) /mcL 03/31 /2025 9:02 PM CDT [facility] [employer] [facility] Not Available Not Available 02/25/2025 12:10:13 02/19/20 25 02/18/2025 CBC W Auto Diffe renti al panel - Blood basophils [#/volume] in blood by automated count 0.03 text: 0.00 - 0.10 10(3)/ mcL ABSOL CHENEGA BASOP HILS 0.03 0.00 - 0.10 10(3) /mcL 02/18 9:02 PM CDT [facility] [employer] [facility] Not Available Not Available 02/25/2025 12:10:13 02/19/20 25 02/18/2025 CBC W Auto Diffe renti al panel - Blood nucleated erythrocytes /leukocytes [ratio] in blood 0 NRBC PER 100 WBC 0 02/18 9:02 PM CDT [facility] [employer] [facility] Not Available Not Available 02/25/2025 12:10:13 02/19/20 25 02/18/2025 CBC W Auto Diffe renti al panel - Blood interpretati on and review of laboratory results Abnorm al Not Available Not Available 12:10:13 02/19/20 25 02/18/2025 Thyro tropi n [Unit s/vol ume] in Serum or Plasm a thyrotropin [units/volum e] in serum or plasma 1.604 text: 0.300 - 5.000 mIU/L TSH 1.604 0.300 - 5.000 mIU/L 02/18 9:43 PM CDT [facility] [employer] [facility] Not Available Not Available 02/25/2025 12:10:13 02/19/20 25 02/18/2025 Thyro tropi n [Unit s/vol ume] in Serum or Plasm a interpretati on and review of laboratory results Normal Not Available Not Available 05/2025 12:10:13 02/19/20 25 02/18/2025 Fibri n D-dim er FEU [Mass /volu me] in Plate let poor plasm a fibrin D-dimer feu [mass/volume ] in platelet poor plasma 1.62 text: <0.50 mcg/mL feu high D DIMER 1.62 (H) <0.50 mcg/m L FEU 02/18 9:17 PM CDT [facility] Not Available Not Available 02/25/2025 12:10:13 02/19/2002/18/2025 Fibri n D-dim er FEU [Mass /volu me] in Plate let poor plasm a Unknown Analyte The FDA has approv ed this method to exclud e the diagno sis of DVT and/or PE at the cutoff value of <0.50 mcg/mL FEU. The FDA has appro laila this metho d to exclu de the diagn osis of DVT and/o r PE at the cutof f value of <0.50 mcg/m L FEU. Not Available Not Available 02/25/2025 12:10:13 02/19/2002/18/2025 Fibri n D-dim er FEU [Mass /volu me] in Plate let poor plasm a interpretati on and review of laboratory results Abnorm al Not Available Not Available 12:10:13 02/19/2002/18/2025 Compr ehens manny metab olic 1999 panel - Serum or Plasm a sodium [moles/volum e] in serum or plasma 138 mmol/ L low: 136mmo l/Lhig h: 145mmo l/L SODIU M 138 136 - 145 mmol/ L 02/18 9:28 PM CDT [facility] Not Available Not Available 02/25/2025 12:10:13 02/19/2002/18/2025 Compr ehens manny metab olic 1999 panel - Serum or Plasm a potassium [moles/volum e] in serum or plasma 3.8 mmol/ L low: 3.5mmo l/Lhig h: 5.1mmo l/L POTAS SIUM 3.8 3.5 - 5.1 mmol/ L 02/18 9:28 PM CDT [facility] Not Available Not Available 02/25/2025 12:10:13 02/19/20 25 02/18/2025 Compr ehens manny metab olic 1999 panel - Serum or Plasm a chloride [moles/volum e] in serum or plasma 105 mmol/ L low: 98mmol /Lhigh : 107mmo l/L CHLOR ASIM 105 98 - 107 mmol/ L 02/18 9:28 PM CDT [facility] Not Available Not Available 02/25/2025 12:10:13 02/19/20 25 02/18/2025 Compr ehens manny metab olic 1999 panel - Serum or Plasm a carbon dioxide, total [moles/volum e] in serum or plasma 22 mmol/ L low: 22mmol /Lhigh : 30mmol /L CO2, VENOU S 22 22 - 30 mmol/ L 02/18 9:28 PM CDT [facility] Not Available Not Available 02/25/2025 12:10:13 02/19/20 25 02/18/2025 Compr ens manny metab olic 1999 panel - Serum or Plasm a anion gap in serum or plasma by calculation 14.8 mmol/ L high: 18mmol /L ANION GAP 14.8 <18.0 mmol/ L 02/18 9:28 PM CDT [facility] Not Available Not Available 02/25/2025 12:10:13 02/19/20 25 02/18/2025 Compr ens manny metab olic 1999 panel - Serum or Plasm a glucose [mass/volume ] in serum or plasma 126 mg/dL low: 70mg/d Lhigh: 99mg/d L high GLUCO SE 126 (H) 70 - 99 mg/dL 02/18 9:28 PM CDT [facility] Not Available Not Available 02/25/2025 12:10:13 02/19/20 25 02/18/2025 Compr ehens manny metab olic 1999 panel - Serum or Plasm a urea nitrogen [mass/volume ] in serum or plasma 8 mg/dL low: 10mg/d Lhigh: 20mg/d L low BUN 8 (L) 10 - 20 mg/dL 02/18 9:28 PM CDT [facility] Not Available Not Available 02/25/2025 12:10:13 02/19/20 25 02/18/2025 Compr ehens manny metab olic 1999 panel - Serum or Plasm a creatinine [mass/volume ] in serum or plasma 0.61 mg/dL low: 0.6mg/ dLhigh : 1mg/dL CREAT ININE , BLOOD 0.61 0.60 - 1.00 mg/dL 02/18 9:28 PM CDT [facility] Not Available Not Available 02/25/2025 12:10:13 02/19/20 25 02/18/2025 Compr ehens manny metab olic 1999 panel - Serum or Plasm a urea nitrogen/cre atinine [mass ratio] in serum or plasma 13 text: 12 - 20 ratio BUN/C REATI NINE RATIO 13 12 - 20 ratio 02/18 9:28 PM CDT [facility] Not Available Not Available 02/25/2025 12:10:13 02/19/20 25 02/18/2025 Compr ehens manny metab olic 1999 panel - Serum or Plasm a protein [mass/volume ] in serum or plasma 6.6 g/dL low: 6g/dLh igh: 8g/dL TOTAL PROTE IN 6.6 6.0 - 8.0 g/dL 02/18 9:28 PM CDT [facility] Not Available Not Available 02/25/2025 12:10:13 02/19/20 25 02/18/2025 Compr ehens manny metab olic 2000 panel - Serum or Plasm a albumin [mass/volume ] in serum or plasma 3.6 g/dL low: 3.5g/d Lhigh: 5g/dL ALBUM IN 3.6 3.5 - 5.0 g/dL 02/18 9:28 PM CDT [facility] Not Available Not Available 02/25/2025 12:10:13 02/19/20 25 02/18/2025 Compr ehens manny metab olic 2000 panel - Serum or Plasm a albumin/glob ulin [mass ratio] in serum or plasma 1.2 low: 1high: 2.2 A/G RATIO 1.2 1.0 - 2.2 02/18 9:28 PM [facility] [employer] Not Available Not Available 02/25/2025 12:10:13 02/19/20 25 02/18/2025 Compr ehens manny metab olic 1999 panel - Serum or Plasm a calcium [mass/volume ] in serum or plasma 9 mg/dL low: 8.7mg/ dLhigh : 10.5mg /dL CALCI UM 9.0 8.7 - 10.5 mg/dL 02/18 9:28 PM CD[facility] Not Available Not Available 02/25/2025 12:10:13 02/19/2002/18/2025 Compr [employer] manny metab olic 2000 panel - Serum or Plasm a bilirubin.to briseyda [mass/volume ] in serum or plasma 0.8 mg/dL low: 0.2mg/ dLhigh : 1.2mg/ dL T BILI 0.8 0.2 - 1.2 mg/dL 02/18 9:28 PM CDT [facility] [employer] [facility] Not Available Not Available 02/25/2025 12:10:13 02/19/2002/18/2025 Compr [employer] manny metab olic 2000 panel - Serum or Plasm a aspartate aminotransfe rase [enzymatic activity/vol ume] in serum or plasma 29 U/L high: 43U/L SGOT (AST) 29 <43 U/L 02/18 9:28 PM CDT [facility] [employer] Not Available Not Available 02/25/2025 12:10:13 02/19/20 25 02/18/2025 Compr [employer] manny metab olic 2000 panel - Serum or Plasm a alanine aminotransfe rase [enzymatic activity/vol ume] in serum or plasma 19 U/L high: 56U/L SGPT (ALT) 19 <56 U/L 02/18 9:28 PM CDT [facility] [employer] Not Available Not Available 02/25/2025 12:10:13 02/19/20 25 02/18/2025 Compr ehens manny metab olic 1999 panel - Serum or Plasm a alkaline phosphatase [enzymatic activity/vol ume] in serum or plasma 154 U/L low: 40U/Lh igh: 150U/L high ALKAL INE PHOSP HATAS E 154 (H) 40 - 150 U/L 02/18 9:28 PM CDT [facility] [employer] R LAB Not Available Not Available 02/25/2025 12:10:13 02/19/20 25 02/18/2025 Compr [employer] manny metab olic 1999 panel - Serum or Plasm a glomerular filtration rate [volume rate/area] in serum, plasma or blood by creatinine-b ased formula (CKD-epi 2020)/1.73 sq M low: 60 GFR, ESTIM ATED >60 >=60 02/18 9:28 PM CDT [facility] [employer] [facility] LAB Not Available Not Available 02/25/2025 12:10:13 02/19/2002/18/2025 Compr ehens manny metab olic 2000 panel - Serum or Plasm a glomerular filtration rate [volume rate/area] in serum, plasma or blood by creatinine-b ased formula (MDRD)/1.73 sq M among black population low: 60 GFR, EST. AFRIC AN >60 >=60 02/18 9:28 PM CDT [facility] [employer] [facility] LAB Not Available Not Available 02/25/2025 12:10:13 02/19/2002/18/2025 Compr [employer] manny metab olic 2000 panel - Serum or Plasm a glomerular filtration rate [volume rate/area] in serum, plasma or blood by creatinine-b ased formula (MDRD)/1.73 sq M among non black population low: 60 GFR, EST. NONAF RICAN >60 >=60 02/18 9:28 PM CDT [facility] [employer] [facility] Not Available Not Available 02/25/2025 12:10:13 02/19/20 25 02/18/2025 Compr [employer] manny metab olic 2000 panel - Serum or Plasm a interpretati on and review of laboratory results Abnorm al Not Available Not Available 12:10:13 02/19/20 25 02/18/2025 Natri ureti c pepti de B [Mass /volu me] in Serum or Plasm a natriuretic peptide B [mass/volume ] in serum or plasma 417 pg/mL high: 100pg/ mL high B TYPE NATRI URETI C PEPTI DE 417 (H) <100 pg/mL 02/18 9:33 PM CDT [facility] Not Available Not Available 02/25/2025 12:10:13 02/19/20 25 02/18/2025 Natri ureti c pepti de B [Mass /volu me] in Serum or Plasm a interpretati on and review of laboratory results Abnorm al Not Available Not Available 12:10:13 03/28/20 25 03/28/2025 HbA1c (hemo globi n A1c), blood HbA1c 6.9 Not Available In-Office Order Internal Use Only DO Not Attach Compendium DO Not Attach Compendium, Do Not Delete/merge, [id number] 03/28/2025 08:51:06 02/01/20 25 01/31/2025 XR, chest , 2 view No observ ation record ed. [facility] (Radiology) [address] [place], [address], 01/31/2025 18:28:04 03/05/20 25 02/18/2025 elect rigo gutiérrez am No observ ation record ed. [email or web address] Not Available 2024 14:38:34 04/03/[address], angio gram, coron jeremy arter ies, w/ contr ast No observ ation record ed. [facility] - [address] [place], [address], 04/04/2025 16:01:19 04/16/20 25 brayan r monit or No observ ation record ed. [employer] [address], [place], [address], 04/16/2025 16:04:46 Result Notes None recorded. Problems Name Problem SNOMED Code Status Onset Date Resolution Date Notes Provider Name and Address Organization Details Recorded Time Morbid obesity 401837589 Active 2017 Amita Johnson [facility] [employer] Attn: Accountin g,[address], [place], [address], [place] - [facility] 8 12:38:28 Tobacco dependence syndrome 72331660 Active 2018 Amita Johnson [facility] [employer] [employer] Attn: Accountin g,[address] [facility], [place], [address], [place] [facility] 9 16:16:04 Sleep apnea [id number] Active 2018 Amita Johnson [facility] Attn: Accountin g,[address] [facility], [place], [address], [place] [facility] 9 12:23:58 Severe dry skin [id number] Active 2018 Amita Johnson APN [employer] Attn: Accountin g,[address] [facility], [place], [address], [place] [facility] 9 14:37:29 Allergic rhinitis 61417913 Active 2019 Amita Johnson APN [employer] Attn: Accountin g,[address] [facility], [place], [address], [place] [facility] 0 14:48:16 Pain of multiple joints 31166807 Active 2020 Amita Johnson APN [employer] Attn: Accountin g,[address] [facility], [place], [address], [place] [facility] 1 12:33:49 Posterior rhinorrhea 51626255 Active 2021 Amita Johnson APN [employer] Attn: Accountin g,[address] [facility], [place], [address], [place] [facility] 2 12:01:35 Tobacco user 937871210 Active 2021 Amita Johnson APN, FNP-C Attn: Elizabeth newman,[address] [facility], [place], [place], [address] [place] [address] 2, [facility] - SI 2 13:58:06 Chronic obstructive pulmonary disease 65240357 Active 2022 Amita Johnson APN, FNP-C Attn: Elizabeth paty,[address] [facility], [place], [place], [address] [place] [address] 2, [facility] - [facility] 3 12:29:22 Smoker 93980857 Active 2022 Amita Johnson APN, FNP-C Attn: Elizabeth newman,[address] [facility], [place], [place], [address] [place] [address] 2, [facility] - [facility] 3 12:30:36 Hepatomegal y 89763437 Active 2023 Amita Johnson APN, FNP-C Attn: Elizabeth newman,[address] [facility], [place], [place], [address] [place] [address] 2, [facility] - [facility] 4 12:29:28 Obesity 734528084 Active 2023 Amita Johnson APN, FNP-C Attn: Elizabeth paty,[address] [facility], [place], [place], [address] [place] [address] 2, [facility] - SI 4 11:52:49 Panniculiti s 77796583 Active 2024 Amita Johnson APN, FNP-C Attn: Elizabeth newman,[address] [facility], [place], [place], [address] [place] [address] 2, [facility] - [facility] 5 10:11:47 Candidiasis of vagina 59390829 Active 2024 Amita Johnson APN, FNP-C Attn: Elizabeth newman,[address] [facility], [place], [place], [address] [place] [address] 2, [facility] - [facility] 5 10:11:48 Costal chondritis 37147523 Completed 05/15/2019 Amita Johnson APN, FNP-C Attn: Yungnataly g,[address] [facility], [place], [address], [place] [facility] 9 10:16:21 Type 2 diabetes mellitus 72125764 Active Florentin Garvey MD Attn: Yungnataly g,[address] [facility], [place], [address], [place] [facility] 6 13:33:07 Obesity 076420584 Completed 12/05/2018 Amita Johnson APN, FNP-C Attn: Yungnataly g,[address] [facility], [place], [address], [place] [facility] 4 11:52:49 Essential hypertensio n 39570508 Active Florentin Garvey MD Attn: Elizabeth paty,[address] [place], [address], [place] [facility] 6 13:33:07 Dyslipidemi a 742868698 Active Florentin Garvey MD Attn: Elizabeth paty,[address] [facility], [place], [address], [place] [facility] 6 13:33:07 Acute sinusitis 06645518 Completed 07/27/2017 Amita Johnson APN, FNP-C Attn: Elizabeth g,[address] [place], [address], [place] [facility] 7 13:58:47 Arthritis 7474489 Active Florentin Garvey MD Attn: Elizabeth newman,[address] [facility], [place], [address], [place] [facility] 6 18:09:25 Smoker 02719710 Completed 12/05/2018 Amita Johnson APN, FNP-C Attn: Elizabeth newman,[address] [place], [address], [place] [facility] 3 12:30:36 Gastroesoph ageal reflux disease 873504862 Active Florentin Garvey MD Attn: Elizabeth newman,[address] [place], [address], [place] [facility] 6 13:33:07 Upper respiratory infection 41487665 Completed 07/27/2017 Amita Johnson APN [employer] Attn: Elizabeth newman,[address] [facility], [place], [address], [place] [facility] 7 13:58:52 Mixed anxiety and depressive disorder 443409503 Active 2016 Amita Johnson APN [employer] Attn: Elizabeth newman,[address] [facility], [place], [address], [place] [facility] 7 15:00:26 Liver enzymes level above reference range 275885338 Completed 201605/15/2019 Amita Johnson APN [employer] Attn: Elizabeth newman,[address] [facility], [place], [address], [place] 9 10:16:31 Rheumatoid factor detected 388410488 Active 2016 Amita Johnson APN [employer] Attn: Elizabeth newman,[address] [facility], [place], [address], [place] [facility] 7 15:00:32 Problem Notes None recorded. Procedures Surgical History Date Name Laterality Status Provider Name and Address Organization Details Recorded Time 1 Endometrial Biopsy completed Matilda Vital [facility] 04/14/2021 17:02:57 1 Endometrial Biopsy completed Naz Yin MA [facility] 04/14/2021 16:28:30 1 Most Recent Mammogram completed GRACY Cash [facility] 04/08/2021 09:18:37 1 Date of Last Pap Smear completed GRACY Cash [facility] 04/08/2021 09:18:08 3 repair of umbilical hernia completed GRACY Cash [facility] 03/10/2021 09:14:09 3 delivery completed GRACY Cash [facility] 03/10/2021 09:13:40 9 delivery completed Naz Yin MA [facility] 03/10/2021 09:13:28 3 Other completed Naz Yin MA [facility] 03/10/2021 09:14:55 Imaging Results None recorded. Procedure Notes None recorded. Medical Equipment None Reported. Allergies Allergen ID Allergen Name Allergen Category Reaction Reaction Severity Criticality Documentation Date Start Date Code Code System Note Provider Name and Address Organization Details Recorded Time 5235 Product containin g penicilli n (product) medicatio n Not available Not available Not available 10/23/2014 [id number] SNOMED ok with amox- just not pcn Amita Johnson APN, [employer] Attn: Accountnataly g,[address] [facility], [place], [address] [place] [address] - [facility] 9 10:17:45 5236 Avelox medicatio n Not available Not available Not available 10/23/2014 78607 6 RxNorm Jessica Latif MA [facility], [place] - [facility] 4 16:24:38 Medications Name Sig Start Date Stop Date Status Note LastModified by Organization Details LastModified Time Prescript ion - Prior Authoriza tion Request 04/06 completed Not Available Not Available Not Available Dexcom G6 CGM USE DIRECTED 01/08 completed insuranc e will not cover at this time Not Available Not Available Not Available glucomete r use to test sugar daily 2019 active Not Available Not Available Not Avai lable cyclobenz aprine 10 mg tablet Take 1 tablet twice a day by oral route. active Not Available Not Available No t Available amoxicill in 500 mg capsule TAKE 1 CAPSULE BY MOUTH EVERY 8 HOURS FOR 7 DAYS 05/01 completed Not Available Not Available Not Available Qvar 80 mcg/actua tion Metered Aerosol oral inhaler Inhale 2 puffs twice a day by inhalati on route. 07/05 completed Not Available Not Available Not Available venlafaxi ne ER 37.5 mg capsule,e xtended release 24 hr TAKE 2 CAPSULE BY MOUTH EVERY DAY for 1 week, then take 1 capsule until out of med 04/21 completed Once daily Not Available Not Available Not Available venlafaxi ne ER 75 mg capsule,e xtended release 24 hr TAKE 1 CAPSULE BY MOUTH EVERY DAY 04/21 completed Not Available Not Available Not Available doxycycli ne hyclate 100 mg capsule TAKE 1 CAPSULE BY MOUTH TWICE DAILY FOR 7 DAYS 01/31 completed Not Available Not Available Not Available clindamyc in HCl 300 mg capsule active Not Available Not Available Not Available albuterol sulfate 2.5 mg/3 mL (0.083 %) solution for nebulizat ion Inhale 3 mL 3 times a day by nebuliza tion route as needed. 2024 active Not Available Not Available Not Avai lable cetirizin e 10 mg tablet TAKE 1 TABLET BY MOUTH EVERY DAY active Not Available Not Available No t Available azithromy gabrielle 250 mg tablet TAKE 2 TABLETS (500 MG) BY ORAL ROUTE ONCE DAILY FOR 1 DAY THEN 1 TABLET (250 MG) BY ORAL ROUTE ONCE DAILY FOR 4 DAYS 03/28 completed Not Available Not Available Not Available ibuprofen 800 mg tablet active Not Available Not Available Not Available nystatin 100,000 unit/gram topical ointment APPLY EXTERNAL LY TO THE AFFECTED AREA TWICE DAILY IN THE MORNING AND IN THE EVENING 12/15 completed Not Available Not Available Not Available fluconazo le 150 mg tablet TAKE 1 TABLET BY MOUTH EVERY 72 HOURS DIRECTED active Not Available Not Available No t Available benzonata te 200 mg capsule TAKE 1 CAPSULE BY MOUTH THREE TIMES DAILY 01/31 completed Not Available Not Available Not Available metoprolo l succinate ER 50 mg tablet,ex tended release 24 hr TAKE 1 TABLET BY MOUTH EVERY DAY active Not Available Not Available No t Available hydrocodo ne 5 mg-acetam inophen 325 mg tablet TAKE 1 TO 2 TABLETS BY MOUTH EVERY 4 HOURS NEEDED FOR MODERATE OR MORE SEVERE PAIN OR SEVERE PAIN FOR UP TO 3 DAYS 04/14 completed Not Available Not Available Not Available fluocinol one 0.01 % topical cream (Disp 120gm) 30 day supply - Apply 1-2 grams to the affected area 1-2 times a day as directed . 07/27 completed Not Available Not Available Not Available meloxicam 15 mg tablet TAKE 1 TABLET BY MOUTH EVERY DAY active Not Available Not Available No t Available sucralfat e 1 gram tablet TAKE 1 TABLET BY MOUTH EVERY 6 HOURS FOR 7 DAYS 04/14 completed Not Available Not Available Not Available lisinopri l 20 mg tablet TAKE 1 TABLET BY MOUTH EVERY DAY 12/28 completed Not Available Not Available Not Available ondansetr on HCl 4 mg tablet TAKE 1 TO 2 TABLETS BY MOUTH EVERY 8 HOURS NEEDED FOR NAUSEA 11/02 completed prn Not Available Not Available Not Available prednison e 20 mg tablet TAKE 2 TABLETS BY MOUTH DAILY FOR 5 DAYS 12/26 completed Not Available Not Available Not Available phentermi ne 15 mg capsule TAKE 1 CAPSULE BY MOUTH EVERY DAY 08/18 completed Not Available Not Available Not Available venlafaxi ne ER 150 mg capsule,e xtended release 24 hr TAKE 1 CAPSULE BY MOUTH EVERY DAY active Not Available Not Available No t Available sulfameth oxazole 800 mg-trimet hoprim 160 mg tablet TAKE 1 TABLET BY MOUTH EVERY 12 HOURS FOR 10 DAYS 04/21 completed Not Available Not Available Not Available doxycycli ne monohydra te 100 mg tablet TAKE 1 TABLET BY MOUTH TWICE DAILY FOR 7 DAYS 04/06 completed Not Available Not Available Not Available tramadol 50 mg tablet TAKE 1 TABLET BY MOUTH EVERY 8 HOURS NEEDED FOR MODERATE TO SEVERE PAIN 04/19 completed Not Available Not Available Not Available triamcino lone acetonide 0.1 % topical cream APPLY EXTERNAL LY TO THE AFFECTED AREA TWICE DAILY IN THE MORNING AND IN THE EVENING 12/15 completed Not Available Not Available Not Available phentermi ne 30 mg capsule TAKE 1 CAPSULE BY MOUTH EVERY DAY 2024 active Not Available Not Available Not Avai lable bupropion HCl SR 100 mg tablet,12 hr sustained -release TAKE 1 TABLET BY MOUTH TWICE DAILY 12/05 completed Not Available Not Available Not Available amoxicill in 500 mg tablet Take 1 tablet 3 times a day by oral route. 07/27 completed Not Available Not Available Not Available simvastat in 40 mg tablet TAKE 1 TABLET BY MOUTH EVERY EVENING active Not Available Not Available No t Available amoxicill in 875 mg tablet TAKE 1 TABLET BY MOUTH EVERY 12 HOURS FOR 10 DAYS 10/07 completed Not Available Not Available Not Available citalopra m 20 mg tablet Take 1 tablet every day by oral route. 05/15 completed 05/15/20 19-pt hasn't beentavarinder lal due to [facility] test done Not Available Not Available Not Available famotidin e 20 mg tablet Take 1 tablet twice a day by oral route for 30 days. 07/27 completed Not Available Not Available Not Available OneTouch Ultra Test strips USE TO TEST SUGAR DAILY active Not Available Not Available No t Available benzonata te 100 mg capsule TAKE 1 CAPSULE BY MOUTH THREE TIMES DAILY FOR 5 DAYS NEEDED FOR COUGH 01/11 completed Not Available Not Available Not Available doxycycli ne monohydra te 100 mg capsule TAKE 1 CAPSULE BY MOUTH TWICE DAILY FOR 7 DAYS 04/21 completed Not Available Not Available Not Available cephalexi n 500 mg capsule Take 1 capsule every 12 hours by oral route for 10 days. 08/14 completed Not Available Not Available Not Available pantopraz ole 40 mg tablet,de layed release Take 1 Tablet by mouth twice daily active Not Available Not Available No t Available oseltamiv ir 75 mg capsule Take 1 capsule every day by oral route for 7 days. 03/10 completed Not Available Not Available Not Available metformin 1,000 mg tablet TAKE 1 TABLET BY MOUTH TWICE DAILY WITH MEALS active Not Available Not Available No t Available nystatin 100,000 unit/gram topical cream APPLY TOPICALL Y TO THE AFFECTED AREA TWICE DAILY IN THE MORNING AND IN THE EVENING NEEDED active Not Available Not Available No t Available losartan 25 mg tablet TAKE 1 TABLET BY MOUTH EVERY DAY active Not Available Not Available No t Available indometha gabrielle 50 mg capsule TAKE 1 CAPSULE BY MOUTH THREE TIMES DAILY WITH FOOD OR MILK NEEDED FOR PAIN 07/07 completed Not Available Not Available Not Available nystatin- triamcino lone 100,000 unit/g-0. 1 % topical cream APPLY TO THE AFFECTED AREA(S) BY TOPICAL ROUTE 2 TIMES PER DAY IN THEMORNI NG AND EVENING 07/24 completed Not Available Not Available Not Available omeprazol e 20 mg capsule,d elayed release TAKE 2 CAPSULES BY MOUTH DAILY active Not Available Not Available No t Available monteluka st 10 mg tablet TAKE 1 TABLET BY MOUTH EVERY DAY AT BEDTIME active Not Available Not Available No t Available mupirocin 2 % topical ointment APPLY A SMALL AMOUNT TO THE AFFECTED AREA BY TOPICAL ROUTE 3 TIMES PER DAY 07/24 completed Not Available Not Available Not Available furosemid e 20 mg tablet TAKE 1 TABLET BY MOUTH DAILY NEEDED FOR FLUID RETENTIO N active Not Available Not Available No t Available metoprolo l succinate ER 25 mg tablet,ex tended release 24 hr Take 1 tablet twice a day by oral route for 30 days. active Not Available Not Available No t Available Cheratuss in AC 10 mg-100 mg/5 mL oral liquid 07/27 completed Not Available Not Available Not Available ibuprofen 600 mg tablet active Not Available Not Available Not Available methylpre dnisolone 4 mg tablets in a dose pack FOLLOW PACKAGE DIRECTIO NS 03/28 completed didn't do Not Available Not Available Not Available albuterol sulfate HFA 90 mcg/actua tion aerosol inhaler INHALE 2 PUFFS BY MOUTH EVERY 4 HOURS NEEDED active Not Available Not Available No t Available oxybutyni n chloride 5 mg tablet TAKE 1 TABLET BY MOUTH TWICE DAILY active Not Available Not Available No t Available cefdinir 300 mg capsule TAKE 1 CAPSULE BY MOUTH EVERY 12 HOURS FOR 7 DAYS 03/05 completed Not Available Not Available Not Available fluticaso ne propionat e 50 mcg/actua tion nasal spray,joaquina pension SHAKE LIQUID AND USE 1 SPRAY IN EACH NOSTRIL EVERY DAY active Not Available Not Available No t Available clotrimaz ole 1 % topical cream APPLY EXTERNAL LY TO THE AFFECTED AREA TWICE DAILY 03/05 completed Not Available Not Available Not Available doxycycli ne hyclate 100 mg tablet TAKE 1 TABLET BY MOUTH TWICE DAILY FOR 7 DAYS 11/02 completed Not Available Not Available Not Available glipizide 5 mg tablet TAKE 1 TABLET BY MOUTH TWICE DAILY WITH MEALS 05/14 completed Taken off Not Available Not Available Not Available naproxen 500 mg tablet Take 1 tablet twice a day by oral route with meals. active Not Available Not Available No t Available diazepam 5 mg tablet active Not Available Not Available Not Available amoxicill in 875 mg-potass ium clavulana te 125 mg tablet TAKE 1 TABLET BY MOUTH EVERY 12 HOURS FOR 7 DAYS 02/08 completed Not Available Not Available Not Available neomycin- polymyxin -hydrocor t 3.5 mg-10,000 unit/mL-1 % ear drops,joaquina p INSTILL 4 DROPS INTO AFFECTED EAR(S) BY OTIC ROUTE 3 TIMES PER DAYx7 days 12/26 completed Not Available Not Available Not Available azithromy gabrielle 500 mg tablet 01/05 completed Not Available Not Available Not Available cyclobenz aprine 5 mg tablet TAKE 1 TABLET BY MOUTH THREE TIMES DAILY FOR UP TO 5 DAYS NEEDED FOR MUSCLE SPASMS 02/08 completed Not Available Not Available Not Available ciproflox acin 0.3 %-dexamet hasone 0.1 % ear drops,joaquina pension SHAKE LIQUID AND INSTILL 4 DROPS TO AFFECTED EAR TWICE DAILY FOR 7 DAYS 04/21 completed Not Available Not Available Not Available nitrofura ntoin monohydra te/macroc rystals 100 mg capsule TAKE 1 CAPSULE BY MOUTH EVERY 12 HOURS FOR 5 DAYS active Not Available Not Available No t Available Byetta 5 mcg/dose (250 mcg/mL)1. 2 mL subcutane ous pen injector ADMINIST ER 5 MCG UNDER THE SKIN TWICE DAILY 05/15 completed Not Available Not Available Not Available Prilosec 10/07 completed otc Not Available Not Available Not Available Sure Comfort Pen Needle 30 gauge x 5/16 use twice daily with byetta pen 03/10 completed Not Available Not Available Not Available Symbicort 80 mcg-4.5 mcg/actua tion HFA aerosol inhaler INHALE 2 PUFFS BY MOUTH TWICE DAILY 03/05 completed Not Available Not Available Not Available ProChambe r 08/14 completed Not Available Not Available Not Available Bydureon 2 mg subcutane ous extended release suspensio n INJECT 2 MG SUBCUTAN EOUSLY EVERY WEEK 02/09 completed Not Available Not Available Not Available Wing Tip Tubing misc 05/14 completed Not Available Not Available Not Available Aerochamb er Plus Flow-Vu,M edium Mask USE DIRECTED active Not Available Not Available No t Available potassium chloride ER 20 mEq tablet,ex tended release TAKE ONE TABLET BY MOUTH NEEDED FOR 30 DAYS active Not Available Not Available No t Available Bydureon 2 mg/0.65 mL subcutane ous pen injector INJECT 2 MG SUBCUTAN EOUSLY EVERY WEEK 10/20 completed has been taking byetta Not Available Not Available Not Available Jardiance 10 mg tablet TAKE 1 TABLET BY MOUTH EVERY DAY IN THE MORNING active Not Available Not Available No t Available Jardiance 25 mg tablet TAKE 1 TABLET BY MOUTH EVERY DAY active Not Available Not Available No t Available Trulicity 1.5 mg/0.5 mL subcutane ous pen injector ADMINIST ER 1.5 MG UNDER THE SKIN EVERY WEEK 08/16 completed Not Available Not Available Not Available Trulicity 0.75 mg/0.5 mL subcutane ous pen injector ADMINIST ER 0.75 MG UNDER THE SKIN EVERY WEEK 08/16 completed Not Available Not Available Not Available Ozempic 1 mg/dose (2 mg/1.5 mL) subcutane ous pen injector 09/13 completed Not Available Not Available Not Available Ozempic 0.25 mg or 0.5 mg (2 mg/1.5 mL) subcutane ous pen injector INJECT 0.25 MG UNDER THE SKIN EVERY WEEK FOR 4 WEEKS, THEN INCREASE TO 0.5 MG EVERY WEEK 09/13 completed Not Available Not Available Not Available Steglatro 5 mg tablet Take one tablet daily by mouth 05/15 completed 05/15/20 19-pt doesn't believe she is taking this medicati on Not Available Not Available Not Available OneTouch Ultra Blue Test Strip 08/18 completed Not Available Not Available Not Available Dexcom G6 Transmitt er device 04/06 completed Not Available Not Available Not Available OneTouch Ultra2 Meter DIRECTED 2023 active Not Available Not Available Not Avai lable OneTouch Delica Plus Lancet 33 gauge DIRECTED active Not Available Not Available No t Available Rybelsus 3 mg tablet 10/07 completed Not Available Not Available Not Available Trulicity 3 mg/0.5 mL subcutane ous pen injector ADMINIST ER 3 MG UNDER THE SKIN EVERY WEEK 12/26 completed Not Available Not Available Not Available Trulicity 4.5 mg/0.5 mL subcutane ous pen injector ADMINIST ER 4.5 MG UNDER THE SKIN EVERY WEEK active Not Available Not Available No t Available Ozempic 1 mg/dose (4 mg/3 mL) subcutane ous pen injector Inject by subcutan eous route for 28 days. 05/14 completed Not Available Not Available Not Available BinaxNOW COVID-19 Ag Self Test kit TEST DIRECTED TODAY 12/26 completed Not Available Not Available Not Available Paxlovid 300 mg (150 mg x 2)-100 mg tablets in a dose pack TK 2 NIRMATRE LVIR TS AND 1 RITONAVI R T TOGETHER PO BID FOR 5 DAYS BID FOR 5 DAYS 07/07 completed Not Available Not Available Not Available oxybutyni n chloride 2.5 mg tablet TAKE 1 TABLET BY MOUTH TWICE DAILY 01/31 completed Not Available Not Available Not Available Vitals Date Recorded Body height Body mass index (BMI) Body weight Oxygen saturation Oxygen saturation in Arterial blood by Pulse oximetry Respiratory rate Body temperature Heart rate Systolic blood pressure Diastolic blood pressure Provider Name and Address Organization Details Last Updated DateTime 5 154.94 cm 43.1 kg/m2 234878. 06 g 96 % 96 % 16 /min 97.5 [degF] 88 /min 116 mm[Hg] 76 mm[Hg] KELLY Hoang [place] - [facility] 5 15:44:47 Date Recorded Body height Body mass index (BMI) Body weight Oxygen saturation Oxygen saturation in Arterial blood by Pulse oximetry Respiratory rate Body temperature Heart rate Systolic blood pressure Diastolic blood pressure Provider Name and Address Organization Details Last Updated DateTime 5 154.94 cm 43.3 kg/m2 100681. 65 g 95 % 95 % 16 /min 98 [degF] 118 /min 138 mm[Hg] 84 mm[Hg] KELLY Hoang [place] - [facility] 5 14:36:53 Date Recorded Body height Body mass index (BMI) Body weight Oxygen saturation Oxygen saturation in Arterial blood by Pulse oximetry Heart rate Respiratory rate Body temperature Systolic blood pressure Diastolic blood pressure Provider Name and Address Organization Details Last Updated DateTime 5 154.94 cm 45.5 kg/m2 378022. 76 g 97 % 97 % 78 /min 16 /min 97.2 [degF] 134 mm[Hg] 86 mm[Hg] Zoë Fuentes [place] - [facility] 5 10:56:59 Date Recorded Body height Body mass index (BMI) Body weight Heart rate Oxygen saturation Oxygen saturation in Arterial blood by Pulse oximetry Systolic blood pressure Diastolic blood pressure Provider Name and Address Organization Details Last Updated DateTime 5 154.94 cm 43.3 kg/m2 208835. 65 g 103 /min 95 % 95 % 138 mm[Hg] 72 mm[Hg] Laila Kilpatrick RN [facility] 5 14:37:09 Date Recorded Body height Body mass index (BMI) Body weight Oxygen saturation Oxygen saturation in Arterial blood by Pulse oximetry Respiratory rate Body temperature Heart rate Systolic blood pressure Diastolic blood pressure Provider Name and Address Organization Details Last Updated DateTime 5 154.94 cm 43.5 kg/m2 745336. 25 g 97 % 97 % 16 /min 98 [degF] 80 /min 124 mm[Hg] 84 mm[Hg] KELLY Hoang [facility] 5 08:45:00 Social History Question Answer Notes LastModified by [employer] ion Details LastModified Time Tobacco Smoking Status Current Every Day Smoker Noreen morrow [facility] 07/27/2017 13:50:49 Do You Have An Advance Directive? No Information not available 08/14/2019 Are You Blind Or Do You Have Difficulty Seeing? No Glasses Information not available 10/19/2021 Is Blood Transfusion Acceptable In An Emergency? Yes Information not available 03/10/2021 What Is Your Level Of Caffeine Consumption? Occasional Soda Information not available 02/14/2024 How Much Tobacco Do You Chew? None Information not available 07/27/2017 In The 14 Days Before Symptom Onset, Have You Had Close Contact With A Laboratory-confi rmed COVID-19 While That Case Was Ill? No Information not available 03/10/2020 In The 14 Days Before Symptom Onset, Have You Had Close Contact With A Person Who Is Under Investigation For COVID-19 While That Person Was Ill? No Information not available 03/10/2020 Have You Been To An Area Known To Be High Risk For COVID-19? No Information not available 03/10/2020 Are You Deaf Or Do You Have Serious Difficulty Hearing? No Cachil DeHe On Left. Information not available 10/19/2021 What Type Of Diet Are You Following? REGULAR [email or web address] Information not available 01/11/2023 Which Illicit Or Recreational Drugs Have You Used? None Information not available 07/27/2017 Education 12 Information no t available 08/14/2019 What Is The Highest Grade Or Level Of School You Have Completed Or The Highest Degree You Have Received? [id number] Information not available 03/10/2021 Are There Any Guns Present In Your Home? No Information not available 08/14/2019 Hard Of Hearing Or Deaf In One Or Both Ears? Yes Hard Of Hearing In Both Ears-hearing Aid In Left Ear Information not available 07/27/2017 Legally Blind In One Or Both Eyes? No Sometimes Information not available 12/15/2020 Marital Status Single Informatio n not available 08/14/2019 What Was The Date Of Your Most Recent Tobacco Screening? 03/28/2025 Information not available 03/28/2025 How Many Children Do You Have? 2 Information not available 03/10/2021 What Is Your Current Pack Years? 30ormorepacky ears Information not available 04/21/2021 Performs Monthly Self-breast Exam? No Information not available 03/10/2020 Do You Have Any Pets? Yes Cat Information not available 11/02/2022 What Is Your Relationship Status? Single Information not available 03/05/2021 Do You Use Your Seat Belt Or Car Seat Routinely? Yes Information not available 03/05/2021 Seat Belts Used Routinely Yes Information not available 08/14/2019 Are You Sexually Active? No Information not available 03/10/2021 Smoke Alarm In Home Yes Information not available 08/14/2019 Do You Have Smoke And Carbon Monoxide Detectors In Your Home? Yes Information not available 03/05/2021 At What Age Did You Start Smoking Tobacco? 14 Information not available 03/10/2020 Are You Passively Exposed To Smoke? Yes Information not available 10/19/2021 How Much Tobacco Do You Smoke? 0.5 PPD Information not available 08/14/2019 General Stress Level Medium Medium-high [id number] Information not available 01/17/2020 Has Tobacco Cessation Counseling Been Provided? Yes Information not available 03/10/2021 On What Date Was Tobacco Cessation Counseling Provided? 03/28/2025 Information not available 03/28/2025 How Many Years Have You Smoked Tobacco? 37 12/26/24 Information not available 12/26/2024 Sex: Female Functional Status Question Answer Note LastModified by Organization Details LastModified Time Do you use any illicit or recreational drugs? No Information not available 03/05/2021 Do you or have you ever used any other forms of tobacco or nicotine? Yes Information not available 03/10/2021 What is your level of alcohol consumption? None Information not available 07/24/2020 Do you or have you ever used smokeless tobacco? Never used smokeless tobacco Information not available 08/14/2019 Are you currently employed? No Information not available 03/05/2021 Are you able to care for yourself? Yes Information not available 03/05/2021 What is your occupation? Unemployed Information not available 08/14/2019 Do you or have you ever used e-cigarettes or vape? Former user of electronic cigarettes Quit 2017 Information not available 12/15/2020 What is your exercise level? None Information not available 12/26/2024 What type of noise exposure are you exposed to? noExposureToExcessiveNoise Infor mation not available 11/02/2022 Mental Status Question Answer Note LastModified by Organization D etails LastModified Time Do you feel stressed (tense, restless, nervous, or anxious, or unable to sleep at night)? [id number] [email or web address] Information not available 07/05/2023 Family History Relationship Description Onset Age of this Age Resolved Age Notes LastModified by Organization Details LastModified Time Sister Malignant neoplasm of uterus [email or web address] Not available 03/10 09:10:50 Sister Diabetes mellitus 41 [email or web address] Not available 03/10 09:11:07 Medical History Condition Response Coronary Artery Disease N Other N High Blood Pressure Y Atrial Fibrillation N Breast Cancer N Lung Disease Y Depression Y COPD Y Blood Clots N Breast Problem N Anesthesia Complications Y Headaches/Migraines N Anxiety Disorder Y Muscle, Joint, or Bone Problems Y Polyps N Infertility N Acid Reflux (GERD) Y Cancer N Stroke N Endometriosis N High Cholesterol Y Liver Disease N Headaches N Thyroid Problems N Kidney or Bladder Problems Y GI Problems N Acne N Skin Problems N Eating Disorder N Anemia Y Heart Attack ([place]) N Ovarian Cancer N Diabetes Y Blood Transfusions N Seizures/Epilepsy N Abuse/Domestic Violence N Asthma N Allergies N Hepatitis N Heart Disease Y Pre-Eclampsia N Osteoporosis N Heart Failure N Gynecological History Statement/Question Response Abnormal Pap N Flow Heavy On BCP's at Conception? N STIs/STDs N HPV Vaccine N Duration of Flow (days) 9 Most Recent Mammogram 03/20/2021 Age at Menarche 10 Current Control Method Menopause Age at First Child 19 If Post Menopausal, Age at Menopause 48 Sexually Active? N Menses Monthly N Date of Last Pap Smear 03/10/2021 LMP Approximate Obstetrics History GPAL:G 3 P 2 0 1 2 Type Value Multiple Births 0 Full Term 2 Induced 0 Spontaneous 0 Premature 0 Living 2 Ectopics 1 Total 3 Immunizations Vaccine Type Date Status Note Provider Name and Address Organization Details Recorded Time Influenza, split virus, quadrivalent, preservative 016 completed Not Available [facility] 12/08/2019 02:32:31 influenza, unspecified formulation 021 completed Amita Johnson APN, [employer] Attn: Accounting,[address] [place], [address], [place] [facility] 01/11/2023 16:15:19 Influenza, split virus, quadrivalent, preservative 017 completed Not Available [facility] 12/08/2019 02:33:58 pneumococcal polysaccharide PPV23 017 completed Not Available [facility] 12/08/2019 02:43:40 Influenza, split virus, quadrivalent, preservative 019 cancelled patient objection Not Available [facility] 12/08/2019 02:43:38 COVID-19, mRNA, LNP-S, PF, 100 mcg/0.5mL dose or 50 mcg/0.25mL dose 021 completed GRACY Green, [place] 02/26/2021 15:26:33 Influenza, split virus, quadrivalent, preservative 021 completed Yoli Salazar MA cristhian, [facility] 09/04/2021 17:16:08 Past Encounters Encounter ID Performer Location Encounter Start Date Encounter Closed Date Diagnosis/Indication Diagnosis SNOMED-CT Code Diagnosis ICD10 Code Diagnosis Note [id number] Florentin Garvey MD [facility] [address] [place] [address] 1 10/23/2014 16:08:47 10/23/2014 17:41:34 Costal chondritis 45599146 Type 2 stephanie betes mellitus 88415454 Influenza vaccine needed 7155668192 106 Obesity 648408358 Patien t was up to 350 # at one point. [id number] Florentin Garvey MD [facility] [address] [place] [id number] 1 11/24/2015 15:45:37 11/25/2015 11:41:47 Type 2 diabetes mellitus 85137611 E11.9 Essential hypertension 70027143 I10 Dyslipidemia 916346226 E 78.5 Obesity 542865875 E66.9 Patient was up to 350 # at one point. Adult heal th examination 971564607 Z00.00 Acute sinusitis 98007464 J01.90 Arthritis 0493181 M19.90 Smoker 24256713 F17.200 [id number] Florentin Garvey MD [facility] [address] [place] [id number] 1 08/10/2016 10:46:04 08/10/2016 16:16:49 Essential hypertension 09693505 I10 Type 2 stephanie betes mellitus 04525399 E11.9 Obesity 050497179 E66.9 Patient was up to 350 # at one point. Dyslipidemia 230234509 E 78.5 Influenza vaccine needed 7800315794 106 Z23 Gastroesop hageal reflux disease 093057157 K21.9 Smoker 57759990 F17.200 Adult heal th examination 248790826 Z00.00 Upper resp iratory infection 17375219 J06.9 [id number] Amita Johnson APN, [employer] [facility] (Adult Med) [address] [place] [address] 07/27/2017 13:38:00 07/29/2017 16:06:05 Dyspnea 077419925 R06.02 needs pft done, will also start inhaled steroid daily and albuterol with spacer prn Adult heal th examination 489506100 Z00.00 Morbid obesity 671270639 E66.01 advised 1500 calorie low fat, low cholestero l, low carb diet, regular exercise and weight reduction. Essential hypertension 75763003 I10 cont with lisinopril 20 mg qd and metoprolol ER 50 mg qd Type 2 stephanie betes mellitus 87237005 E11.9 cont with metformin 1000 mg bid and glipizide 5 mg bid, check blood sugar daily, needs labs checked and plan based on results Dyslipidemia 153958217 E 78.5 needs lab checked; cont with simvastati n 40 mg q pm Gastroesop hageal reflux disease 475151378 K21.9 takes OTC prilosec Administra tion of influenza vaccine 64504009 Z23 Administra tion of pneumococcal vaccine 38205877 Z23 Tobacco user 958433775 Z 72.0 Smoking cessation encouraged . Mixed anxi ety and depressive disorder 295721829 F41.8 no tx at this time Pain of mu ltiple joints 87372893 M25.50 various joint pains, worse in am and with weather changes, father has hx of joint pain [id number] MD Willy Nagel (Adult Med) [address] [place] [address] 08/02/2017 13:58:27 08/04/2017 15:40:17 Dyslipidemia 305906558 E78.5 needs lab checked; cont with simvastati n 40 mg q pm Type 2 stephanie betes mellitus 76737086 E11.9 cont with metformin 1000 mg bid and glipizide 5 mg bid, check blood sugar daily, needs labs checked and plan based on results Liver enzy mes level above reference range 234211380 R74.8 Rheumatoid factor detected 257362662 R76.0 Mixed anxi ety and depressive disorder 079868950 F41.8 starting wellbutrin once a day for one week then increase to bid [id number] MD Willy Nagel (Adult Med) [address] [place] [address] 11/10/2017 16:06:40 11/17/2017 09:44:46 Mixed anxiety and depressive disorder 976498739 F41.8 cont wellbutrin bid Type 2 stephanie betes mellitus 81480361 E11.9 tasha to 7.9 form 10.1; cont with metformin 1000 mg bid and glipizide 5 mg bid, check blood sugar daily, needs labs checked and plan based on results, start on bydureon 2 mg q week-will bring in to have nurse show how to use Dyslipidemia 877766939 E 78.5 improving; cont with simvastati n 40 mg q pm Dyspnea 830335962 R06.02 needs pft done, will also start inhaled steroid daily and albuterol with spacer prn [id number] MD Willy Nagel (Adult Med) [address] [place] [address] 02/09/2018 11:30:52 02/10/2018 12:23:10 Mixed anxiety and depressive disorder 028824562 F41.8 cont wellbutrin bid Type 2 stephanie betes mellitus 49117572 E11.9 down to 7.9 form 10.1;cont with metformin 1000 mg bidglipizi de 5 mg bid,Jardia nce 10 mg qdcheck blood sugar daily, needs labs checked Dyslipidemia 219228104 E 78.5 improving; cont with simvastati n 40 mg q pm Dyspnea 597522156 R06.02 needs pft done, will also start inhaled steroid daily and albuterol with spacer prn Essential hypertension 80015362 I10 cont with lisinopril 20 mg qd and metoprolol ER 50 mg qd Morbid obesity 298336798 E66.01 advised low fat, low cholestero l, low carb diet, regular exercise and weight reduction. Acute sinusitis 44922715 J01.90 acute sinus pressure and colored drainage, will treat with abx as it s worsening over past 3 days [id number] MD Willy Nagel (Adult Med) [address] [place] [address] 07/05/2018 16:25:20 07/06/2018 09:22:18 Acute sinusitis 31816386 J01.90 acute sinus pressure and colored drainage, will treat with abx as it is worsening over past several days Essential hypertension 89942684 I10 cont with lisinopril 20 mg qd and metoprolol ER 50 mg qd Mixed anxi ety and depressive disorder 783090122 F41.8 cont wellbutrin bid Type 2 stephanie betes mellitus 20702949 E11.9 a1c improved at 7.3, still not to goal, will try again to get byetta approved.c ont with metformin 1000 mg bidglipizi de 5 mg bid,Jardia nce 10 mg qdcheck blood sugar daily, Dyslipidemia 898196537 E 78.5 improving; cont with simvastati n 40 mg q pm Morbid obesity 016027923 E66.01 advised low fat, low cholestero l, low carb diet, regular exercise and weight reduction. Wheezing 93790998 R06.2 increased wheezing bilaterall y, start medrol dose pack; increase inhaler use as well [id number] MD Willy Nagel (Adult Med) [address] [place] [address] 12/05/2018 15:59:35 12/06/2018 12:44:13 Essential hypertension 83110002 I10 cont with lisinopril 20 mg qd and metoprolol ER 50 mg qd Mixed anxi ety and depressive disorder 973585863 F41.8 pt stopped wellbutrin , increased mood swings and hot flashes, will start on citalopram ,dwp r/b/se including increased risk of suicide Dyslipidemia 823771951 E 78.5 taking simvastati n 40 mg q pm, need lab rechecked Gastroesop hageal reflux disease 069364173 K21.9 takes OTC prilosec Tobacco de pendence syndrome 28559671 F17.200 Smoking cessation encouraged . Type 2 stephanie betes mellitus 25569633 E11.9 a1c last was 7.3, needs recheckedc ont with metformin 1000 mg bidglipizi de 5 mg bid,Jardia nce 10 mg qdcheck blood sugar daily, Morbid obesity 783330511 E66.01 advised low fat, low cholestero l, low carb diet, regular exercise and weight reduction. Infection of tooth 42464 8007 K04.7 caries in left upper molars, pain radiation to eye/ear, will treat with abx, dwp to f/u with dentist, call dental school to get on list [id number] MD Willy Nagel (Adult Med) [address] [place] [address] 05/15/2019 09:29:44 05/16/2019 12:48:33 Type 2 diabetes mellitus 36295120 E11.9 a1c 8.2 in February 2019cont with metformin 1000 mg bidglipizi de 5 mg bid,check blood sugar daily, Essential hypertension 83397598 I10 cont with lisinopril 20 mg qd and metoprolol ER 50 mg qd Mixed anxi ety and depressive disorder 419621087 F41.8 pt stopped wellbutrin pt stopped citalopram ,dwp r/b/se including increased risk of suicide Dyslipidemia 754677567 E 78.5 taking simvastati n 40 mg q pm, ldl checked by cardiology Gastroesop hageal reflux disease 941951590 K21.9 takes OTC prilosec Tobacco de pendence syndrome 14062807 F17.200 Smoking cessation encouraged . Morbid obesity 434104294 E66.01 advised low fat, low cholestero l, low carb diet, regular exercise and weight reduction. Chronic ob structive pulmonary disease 96622985 J44.9 refill ventolin inhaler for prn use Acute sinusitis 51056207 J01.90 acute sinus pressure and colored drainage, will treat with abx as it is worsening over past several days Severe dry skin 51457770 2 L85.3 hands, dwp reduce alcohol gel or other harsh hand sanitizers , increase lotion, avoid dye or scent [id number] MD Willy Nagel (Adult Med) [address] [place] [address] 08/14/2019 10:08:47 08/15/2019 09:43:41 Type 2 diabetes mellitus 92040680 E11.9 a1c 8.2 in February 2019, now 10.2cont with metformin 1000 mg bidglipizi de 5 mg bid,adding ozempic per [facility] formulary for qwkcheck blood sugar daily, Mixed anxi ety and depressive disorder 659502465 F41.8 pt stopped wellbutrin pt stopped citalopram ,dwp r/b/se including increased risk of suicide Essential hypertension 43879773 I10 cont with lisinopril 20 mg qd and metoprolol ER 50 mg qd Dyslipidemia 100865973 E 78.5 taking simvastati n 40 mg q pm, ldl checked by cardiology Gastroesop hageal reflux disease 428466584 K21.9 takes OTC prilosec Tobacco de pendence syndrome 21873094 F17.200 Smoking cessation encouraged . Morbid obesity 595017154 E66.01 advised low fat, low cholestero l, low carb diet, regular exercise and weight reduction. pt inquired about phentermin e, dwp only if cardiology sends fax stating ok with them to use given her recent hx Administra tion of influenza vaccine 78157342 Z23 formerly named [facility] handout providedha d reaction (prolonged soreness) to pneumonia shot, not flu [id number] MD Willy Nagel (Adult Med) [address] [place] [address] 01/17/2020 10:10:06 01/18/2020 08:14:35 Acute non-suppurative serous otitis media 111696175 H65.03 bilateral TM's with erythema and purulent middle ear fluid, left is ruptured, did one round z pack; start bactrim. Exposure t o Influenzavirus 345907989 Z20.828 daughter 4 months diagnosed with flu, Cough 31069352 R05 dwp to increase fluids, OTC cold med prn, rest, good handwashin g [id number] MD Willy Nagel (Adult Med) [address] [place] [address] 03/10/2020 08:46:58 03/11/2020 11:05:54 Upper respiratory infection 39821580 J06.9 wheezing and coughing and ear pain again, pt prefers to have amox Wound of skin 819023652 T14.8XXA left toes, dwp cont to monitor and apply rx as directed Fungal inf ection by site 502903248 B49 left toes, dwp cont to monitor and apply rx as directed Essential hypertension 76597299 I10 cont with lisinopril 20 mg qd and metoprolol ER 50 mg qd Type 2 stephanie betes mellitus 32781169 E11.9 a1c 8.2 in February 2019, now 10.2check blood sugar daily, cont with metformin 1000 mg bidglipizi de 5 mg bid,start jardiance 10 mg qd Candidiasis of vagina 72 819709 B37.3 increased vaginal yeast infections [id number] MD Willy Nagel (Adult Med) [address] [place] [address] 07/24/2020 08:23:48 07/29/2020 14:47:24 Essential hypertension 12217666 I10 cont with lisinopril 20 mg qd and metoprolol ER 50 mg qd Type 2 stephanie betes mellitus 32969839 E11.9 a1c 8.2 in February 2019, now 10.2check blood sugar daily, cont with metformin 1000 mg bidglipizi de 5 mg bid,start jardiance 10 mg qd Mixed anxi ety and depressive disorder 461938665 F41.8 pt stopped wellbutrin pt stopped citalopram ,dwp r/b/se including increased risk of suicidedwp self care and meditation Morbid obesity 674377522 E66.01 advised low fat, low cholestero l, low carb diet, regular exercise and weight reduction. pt inquired about phentermin e, dwp only if cardiology sends fax stating ok with them to use given her recent hx Tobacco de pendence syndrome 02145623 F17.200 Smoking cessation encouraged . Gastroesop hageal reflux disease 635443778 K21.9 takes OTC prilosec Dyslipidemia 310186630 E 78.5 taking simvastati n 40 mg q pm, ldl checked by cardiology Forgetful 89684259 R41.3 dwp self care, anxiety, and labs needed, increase water intake, journal Screening for malignant neoplasm of colon 098066546 Z12.11 Allergic rhinitis 158432 04 J30.9 resume antihistam ine and nasal steroid [id number] MD Willy Nagel (Adult Med) [address] [place] [address] 09/17/2020 14:26:28 09/18/2020 13:07:49 Screening for malignant neoplasm of colon 463904310 Z12.11 DWP cologuard Acute sinusitis 48260642 J01.90 acute sinus pressure and colored drainage, will treat with abx as it is worsening over past several days Candidiasis of vagina 72 436389 B37.3 increased vaginal yeast infections [id number] MD Willy Nagel (Adult Med) [address] [place] [address] 12/15/2020 08:37:56 12/16/2020 10:48:20 Essential hypertension 45271823 I10 cont with lisinopril 20 mg qd and metoprolol ER 50 mg qd Type 2 stephanie betes mellitus 72224439 E11.9 a1c 8.2 in February 2019, now 10.2check blood sugar daily, cont with metformin 1000 mg bidglipizi de 5 mg bid,start jardiance 10 mg qd Mixed anxi ety and depressive disorder 811498693 F41.8 pt stopped wellbutrin pt stopped citalopram ,dwp r/b/se including increased risk of suicidedwp self care and meditation Morbid obesity 832848063 E66.01 advised low fat, low cholestero l, low carb diet, regular exercise and weight reduction. pt inquired about phentermin e, dwp only if cardiology sends fax stating ok with them to use given her recent hx Tobacco de pendence syndrome 06389578 F17.200 Smoking cessation encouraged . Gastroesop hageal reflux disease 369322508 K21.9 takes OTC prilosec Dyslipidemia 303507724 E 78.5 taking simvastati n 40 mg q pm, ldl checked by cardiology Forgetful 66904804 R41.3 dwp self care, anxiety, and labs needed, increase water intake, journal-st ill pending labs Allergic rhinitis 799300 04 J30.9 resume antihistam ine and nasal steroid Candidiasis of vagina 72 640631 B37.3 increased vaginal yeast infections [id number] MD Cole Mcqueen 14 IM 4 [facility] [address] [place] [address] 02/26/2021 11:04:12 02/27/2021 12:21:34 Administration of SARS-CoV-2 antigen vaccine 717484056 Z23 [id number] MD Willy Nagel (Adult Med) [address] [place] [address] 03/05/2021 08:04:14 03/06/2021 14:04:38 Acute sinusitis 83823838 J01.90 acute sinus pressure and colored drainage, will treat with abx as it is worsening over past several days Postmenopa usal bleeding 27539311 N95.0 last period was 3 Summer's ago, this episode has been 3 days of heavy clots and cramping Wheezing 90191585 R06.2 increased wheezing bilaterall y, start medrol dose pack; increase inhaler use as well [id number] MD Olamide Wallshalto ([employer]) [address] [place] [address] 03/10/2021 08:43:25 03/11/2021 10:06:34 Postmenopausal bleeding 46638353 N95.0 Risk of endometria l CA discussed. Recommenda tion made for EMB and EMB procedure d/w pt. Pt. to schedule EMB. 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 Pelvic US ordered to evaluate EMC Screening for malignant neoplasm of breast 180419428 Z12.39 Pt. has never had a mammogram. Mammogram ordered. Screening for malignant neoplasm of colon 396513245 Z12.11 Pt. doing mail-in kits. Gynecologi c examination 91841802 Z01.419 Normal exam except morbid obesity Body mass index 40+ - severely obese 188751320 Z68.43 Nutrition and exercise discussed. Cigarette smoker 8494179 7 F17.210 Cessation discussed. Pt. advised to decrease by one cigarette per day each month. Pt. agreeable. [id number] MD Willy Walls ([employer]PER[employer]) [address] [place] [address] 04/08/2021 08:21:41 04/13/2021 05:34:29 Endometrium thickened 373852476 R93.89 US shows EMC = 8 mm, dwp. Recommenda tion made for EMB and EMB procedure d/w pt. Pt. expressed understand ing and will schedule appt. [id number] MD Willy Walls ([employer]) [address] [place] [address] 04/14/2021 15:48:10 04/16/2021 09:38:42 Endometrium thickened 791697599 R93.89 US shows EMC = 8 mm, dwp. Recommenda tion made for EMB and EMB procedure d/w pt. Benefits, risks, and alternativ es to EMB d/w pt. Pt. expressed understand ing. All pt. questions answered. Consent signed and in chart. Pt. is s/p TL. EMB performed without difficulty . Please see procedure note for details. Pt. tolerated the procedure well. Telephone visit one week for results. Lesion of vulva 91652623 6 N90.89 Need for wedge resection d/w pt. Will schedule according to pt.'s schedule. [id number] MD Willy Walls ([employer]) [address] [place] [address] 04/21/2021 10:04:37 04/21/2021 20:01:06 Endometrium thickened 007827105 R93.89 EMB was beingn, dwp. Pt. has not had an additional bleeding. Pt. reassured. [id number] MD Willy Nagel (Adult Med) [address] [place] [address] 05/29/2021 14:19:39 06/02/2021 08:21:30 Acute sinusitis 14033924 J01.90 acute sinus pressure and colored drainage, will treat with abx as it is worsening over past several days, cont flonase [id number] MD Willy Nagel (Adult Med) [address] [place] [address] 09/04/2021 11:50:16 09/09/2021 06:56:18 Mixed anxiety and depressive disorder 565991673 F41.8 pt stopped wellbutrin pt stopped citalopram ,dwp r/b/se including increased risk of suicidedwp self care and meditation dwp resuming meds but will start effexor, 37.5 mgR/B/A/SE of antidepres angelika medication discussed such as gastrointe stinal s/e, mood irritabili ty, Suicidal ideation, risk of christy. F/U in 3-4 weeks. Call with concerns and questions. Compliance with medication s and follow up care strongly recommende d. Call 911 or ER for crises. Gastroesop hageal reflux disease 081459393 K21.9 takes OTC prilosec Dyslipidemia 438046013 E 78.5 taking simvastati n 40 mg q pm, ldl checked by cardiology Essential hypertension 12062315 I10 cont with lisinopril 20 mg qd and metoprolol ER 50 mg qd Type 2 stephanie betes mellitus 07909265 E11.9 a1c 8.2 in February 2019, now 10.2check blood sugar daily,cont with metformin 1000 mg bidglipizi de 5 mg bid,jardia nce 10 mg qd Administra tion of influenza vaccine 04526047 Z23 formerly named [facility] handout providedha d reaction (prolonged soreness) to pneumonia shot, not flu Pain of mu ltiple joints 51643032 M25.50 various joint pains, worse in am and with weather changes, father has hx of joint pain Screening for malignant neoplasm of colon 817026060 Z12.11 DWP cologuard Splits in nails 70457905 1 L60.3 Abdominal pain 17304528 R10.9 large hernia causing pain, will get US, may need referral Tobacco de pendence syndrome 95633565 F17.200 Smoking cessation encouraged . Morbid obesity 491733769 E66.01 advised low fat, low cholestero l, low carb diet, regular exercise and weight reduction. pt inquired about phentermin e, dwp only if cardiology sends fax stating ok with them to use given her recent hx [id number] MD Willy Nagel (Adult Med) [address] [address] [place] [address] 10/19/2021 10:44:04 10/20/2021 13:26:31 Essential hypertension 26074309 I10 cont with lisinopril 20 mg qd and metoprolol ER 50 mg qd Mixed anxi ety and depressive disorder 339870371 F41.8 pt stopped wellbutrin pt stopped citalopram ,dwp self care and meditation tolerating effexor, 37.5 mg will increase to 75 mgR/B/A/SE of antidepres angelika medication discussed such as gastrointe stinal s/e, mood irritabili ty, Suicidal ideation, risk of christy. Gastroesop hageal reflux disease 270105534 K21.9 takes OTC prilosec Tobacco de pendence syndrome 18898269 F17.200 Smoking cessation encouraged . Morbid obesity 917637812 E66.01 advised low fat, low cholestero l, low carb diet, regular exercise and weight reduction. pt inquired about phentermin e, dwp only if cardiology sends fax stating ok with them to use given her recent hx Acute maxi llary sinusitis 59213444 J01.00 sinus pressure with purulent drainage, start amox 500 mg TID x 10 days Candidiasis of vagina 72 009778 B37.3 increased vaginal yeast infections [id number] MD Willy Nagel (Adult Med) [address] [place] [address] 01/05/2022 10:18:42 01/06/2022 07:20:41 Mixed anxiety and depressive disorder 379581645 F41.8 pt stopped wellbutrin ,pt stopped citalopram ,dwp self care and meditation still feeling like she not 100% yettolerat ing effexor 75 mg, improved, no SE, will increase now to 150 mg R/B/A/SE of antidepres angelika medication discussed such as gastrointe stinal s/e, mood irritabili ty, Suicidal ideation, risk of christy. Essential hypertension 73117782 I10 cont with lisinopril 20 mg qd and metoprolol ER 50 mg qd Gastroesop hageal reflux disease 775933844 K21.9 takes OTC prilosec Tobacco de pendence syndrome 75107002 F17.200 Smoking cessation encouraged . Morbid obesity 434402890 E66.01 advised low fat, low cholestero l, low carb diet, regular exercise and weight reduction. pt inquired about phentermin e, dwp only if cardiology sends fax stating ok with them to use given her recent hx Type 2 stephanie betes mellitus 20961713 E11.9 a1c 8.2 in February 2019, last 10.2 today 8.1check blood sugar daily, having issues checkingco nt with metformin 1000 mg bidglipizi de 5 mg bid,jardia nce 10 mg qdpt would like continuous glucose monitoring system Impaired mobility 997342 05 Z74.09 pt having increasing ly difficulty with walking long distances with out having to stop for rest, cannot keep up with her family at times, concerns for falling as well, would benefit from motorized scooter which she is fully capable of self operating [id number] MD Willy Nagel (Adult Med) [address] [place] [address] 04/06/2022 10:19:26 04/07/2022 05:39:16 Mixed anxiety and depressive disorder 867232130 F41.8 pt stopped wellbutrin ,pt stopped citalopram ,dwp self care and meditation still feeling like she not 100% yettolerat ing effexor 75 mg, improved, no SE, will increase now to 150 mg R/B/A/SE of antidepres angelika medication discussed such as gastrointe stinal s/e, mood irritabili ty, Suicidal ideation, risk of christy. Type 2 stephanie betes mellitus 98690020 E11.9 a1c today 8.2check blood sugar daily, having issues checkingco nt with metformin 1000 mg bidglipizi de 5 mg bid,jardia nce 10 mg qdwill add rybelsus Essential hypertension 01559930 I10 cont with lisinopril 20 mg qd and metoprolol ER 50 mg qd Gastroesop hageal reflux disease 314081219 K21.9 takes OTC prilosec Tobacco de pendence syndrome 14110766 F17.200 Smoking cessation encouraged . Morbid obesity 603728730 E66.01 advised low fat, low cholestero l, low carb diet, regular exercise and weight reduction. pt inquired about phentermin e, dwp only if cardiology sends fax stating ok with them to use given her recent hx Strain of neck muscle 36 2830167 S16.1XXA tight neck w/tingling down shaw arms, dwp exercises, will send for imaging if not improving on own, may also need PT Impaired mobility 311888 05 Z74.09 pt having increasing ly difficulty with walking long distances with out having to stop for rest, cannot keep up with her family at times, concerns for falling as well, would benefit from motorized scooter which she is fully capable of self operating; [id number] MD Willy Nagel (Adult Med) [address] [place] [address] 04/29/2022 15:57:34 04/29/2022 22:43:21 Acute otitis media 9730723 H65.03 Shaw TM erythema and edema/bulg ingallergy to pcn not AMOX Type 2 stephanie betes mellitus 29379602 E11.9 a1c last 8.2check blood sugar daily, having issues checkingco nt with metformin 1000 mg bidglipizi de 5 mg bid,jardia nce 10 mg qdwill add rybelsus, still waiting to pick updwp diet changes and compliance with meds, r/b/se Candidiasis of vagina 72 885556 B37.3 increased vaginal yeast infections Morbid obesity 463481597 E66.01 advised low fat, low cholestero l, low carb diet, regular exercise and weight reduction. pt inquired about phentermin e, dwp only if cardiology sends fax stating ok with them to use given her recent hx [id number] MD Willy Nagel (Adult Med) [address] [place] [address] 07/07/2022 10:59:05 07/08/2022 10:15:20 Type 2 diabetes mellitus 73970279 E11.9 a1c last 8.2check blood sugar daily, having issues checkingco nt with metformin 1000 mg bidglipizi de 5 mg bid,jardia nce 10 mg qdwill add rybelsus 3 mg,a1c increased today, dwp work on compliance with meds and dietdwp diet changes and compliance with meds, r/b/se Candidiasis of vagina 72 826230 B37.3 increased vaginal yeast infections Morbid obesity 052926394 E66.01 advised low fat, low cholestero l, low carb diet, regular exercise and weight reduction. pt inquired about phentermin e, dwp only if cardiology sends fax stating ok with them to use given her recent hx Posterior rhinorrhea 758 35520 R09.82 cont flonase and zyrtec, still has a lot of drainage, will send singulair Tobacco user 553667005 Z 72.0 Smoking cessation encouraged . [id number] MD Willy Nagel (Adult Med) [address] [place] [address] 10/07/2022 10:54:59 10/12/2022 11:14:56 Type 2 diabetes mellitus 30239494 E11.9 a1c last 8.9check blood sugar daily, having issues checkingco nt with metformin 1000 mg bidglipizi de 5 mg bid,jardia nce 10 mg qdrybelsus 3 mg,a1c increased today,dwp work on compliance with meds and diet Candidiasis of vagina 72 958051 B37.31 increased vaginal yeast infections Morbid obesity 313476342 E66.01 advised low fat, low cholestero l, low carb diet, regular exercise and weight reduction. pt inquired about phentermin e, dwp only if cardiology sends fax stating ok with them to use given her recent hx Posterior rhinorrhea 758 25852 R09.82 cont flonase and zyrtec, still has a lot of drainage, will send singulair Tobacco user [id number] Z 72.0 Smoking cessation encouraged . Acute maxi llary sinusitis 09294989 J01.00 sinus pressure with purulent drainage, UC gave amox which cleared it up and then it came back after she stopped abx, will send mariluy Bilateral earache 721147 003 H92.03 chronic aom, and ome, canals inflamed, will start drops as well and po abx, will also refer to ent Mixed anxi ety and depressive disorder 886720691 F41.8 pt stopped wellbutrin ,pt stopped citalopram ,dwp self care and meditation still feeling like she not 100% yettolerat ing effexor 75 mg, improved, no SE, will increase now to 150 mg R/B/A/SE of antidepres angelika medication discussed such as gastrointe stinal s/e, mood irritabili ty, Suicidal ideation, risk of christy. [id number] MD Willy Pedersen (Adult Med) [address] [place] [address] 11/02/2022 11:32:24 11/04/2022 17:04:14 Chronic otitis media 32228564 H66.91 keep ear dry follow up after audio [id number] MD Willy Nagel (Adult Med) [address] [facility] [place] [address] 12/28/2022 11:26:38 01/03/2023 09:56:37 Mixed anxiety and depressive disorder 409089392 F41.8 pt stopped wellbutrin ,pt stopped citalopram ,dwp self care and meditation was tolerating effexor 150 mg, but now feels like it stopped working; will wean off med, R/B/A/SE of antidepres angelika medication discussed such as gastrointe stinal s/e, mood irritabili ty, Suicidal ideation, risk of christy. Essential hypertension 03949898 I10 cont with lisinopril 20 mg qd- has now developed a cough, will change to losartan 25 mg;cont metoprolol ER 50 mg qd Morbid obesity 763276031 E66.01 advised low fat, low cholestero l, low carb diet, regular exercise and weight reduction. Smoker 57622390 F17.200 Smoking cessation encouraged . Chronic ob structive pulmonary disease 67794061 J44.9 refill ventolin inhaler for prn usestart control inhaler, symbicort Candidiasis of vagina 72 452260 B37.31 increased vaginal yeast infections [id number] MD Willy Nagel (Adult Med) [address] [place] [address] 01/11/2023 15:47:11 01/12/2023 14:14:11 Acute exacerbation of chronic obstructive pulmonary disease 343435835 J44.1 acute flare r/t respirator y infection, dwp medrol dose pack and albuterol prn and start doxy Smoker 13445258 F17.200 Smoking cessation encouraged . Obesity 988085685 E66.9 advised low fat, low cholestero l diet, regular exercise and weight reduction. Mixed anxi ety and depressive disorder 849257616 F41.8 pt stopped wellbutrin ,pt stopped citalopram ,dwp self care and meditation was tolerating effexor 150 mg, but now feels like it stopped working;monsalve s been weaning down and doing good now on 37.5mg R/B/A/SE of antidepres angelika medication discussed such as gastrointe stinal s/e, mood irritabili ty, Suicidal ideation, risk of christy. Essential hypertension 84689272 I10 cont with lisinopril 20 mg qd- has now developed a cough, will change to losartan 25 mg; improved;c ont metoprolol ER 50 mg qd and losartan 25 mg [id number] MD Willy Pedersen (Adult Med) [address] [place] [address] 02/15/2023 11:52:35 02/17/2023 16:17:38 Acute sinusitis 08581221 J01.90 follow up in two weeks Chronic ot itis externa 69914145 H60.61 [id number] MD Willy Pedersen (Adult Med) [address] [facility] [place] [address] 03/15/2023 13:36:11 03/17/2023 08:40:19 Chronic serous otitis media of right ear 787685877 H65.21 [id number] MD Willy Nagel (Adult Med) [address] [place] [address] 04/21/2023 10:50:22 04/25/2023 10:18:54 Mixed anxiety and depressive disorder 840881024 F41.8 pt stopped wellbutrin ,pt stopped citalopram ,dwp self care and meditation was tolerating effexor 150 mg, but now feels like it stopped working; will wean off med, R/B/A/SE of antidepres angelika medication discussed such as gastrointe stinal s/e, mood irritabili ty, Suicidal ideation, risk of christy. Essential hypertension 03275611 I10 no cough with losartan 25 mg; continueco nt metoprolol ER 50 mg qd Morbid obesity 432385861 E66.01 advised low fat, low cholestero l, low carb diet, regular exercise and weight reduction. Smoker 44908046 F17.200 Smoking cessation encouraged . Chronic ob structive pulmonary disease 75440746 J44.9 refill ventolin inhaler for prn usestart control inhaler, symbicort Type 2 stephanie betes mellitus 15309338 E11.9 a1c last 8.9,check blood sugar daily, having issues checkingco nt with metformin 1000 mg bidglipizi de 5 mg bid,jardia nce 10 mg qdnot able to take rybelsus 3 mg, will change to injectiona 1c increased today,dwp work on compliance with meds and diet Dyslipidemia 055805633 E 78.5 taking simvastati n 40 mg q pm, ldl checked by cardiology Urinary incontinence 165 661641 R32 has gradually increased and loses a large amount of urine, using period panties with a pad to absorb; Edema of l ower extremity 129303407 R60.0 left ankle only; dwp monitoring symptoms [id number] MD Willy Nagel (Adult Med) [address] [place] [address] 06/06/2023 11:39:24 06/07/2023 10:30:38 Candidiasis of vagina 28841492 B37.31 increased vaginal yeast infections Type 2 stephanie betes mellitus 35234041 E11.9 a1c last 10.00 on 04/21/23chec k blood sugar daily, having issues checkingco nt with metformin 1000 mg bidglipizi de 5 mg bid,jardia nce 10 mg qdnot able to take rybelsus 3 mg, will change to injection- trulicity- increase to 1.5mgdwp work on compliance with meds and diet Morbid obesity 053379606 E66.01 advised low fat, low cholestero l, low carb diet, regular exercise and weight reduction. [id number] MD Willy Nagel (Adult Med) [address] [place] [address] 07/05/2023 11:13:09 07/06/2023 13:13:15 Morbid obesity 630952513 E66.01 advised low fat, low cholestero l, low carb diet, regular exercise and weight reduction. Type 2 stephanie betes mellitus 49797650 E11.9 a1c last 10.00 on 04/21/23chec k blood sugar daily, having issues checkingco nt with metformin 1000 mg bidglipizi de 5 mg bid,jardia nce 10 mg qdnot able to take rybelsus 3 mg, will change to injection- trulicity- increase to 3mgdwp work on compliance with meds and diet Smoker 24998250 F17.200 Smoking cessation encouraged . Candidiasis of vagina 72 531968 B37.31 increased vaginal yeast infections [id number] MD Willy Nagel (Adult Med) [address] [place] [address] 08/18/2023 09:06:53 08/21/2023 11:17:38 Candidiasis of vagina 85499759 B37.31 increased vaginal yeast infections Type 2 stephanie betes mellitus 77427764 E11.9 a1c last 10.00 on 04/21/23 today is 6.8!!!!!!c heck blood sugar daily, having issues checkingco nt with metformin 1000 mg bidglipizi de 5 mg bid, will STOP to avoid hypoglycem ic eventsjard iance 10 mg qdtolerati ng-trulici ty-increas e to 4.5 mgdwp work on compliance with meds and diet Essential hypertension 18895043 I10 no cough with losartan 25 mg; continueco nt metoprolol ER 50 mg qd Morbid obesity 244653602 E66.01 advised low fat, low cholestero l, low carb diet, regular exercise and weight reduction. Acute sinusitis 71582678 J01.90 acute sinus pressure and colored drainage, will treat with abx as it is worsening over past several days, cont flonase, ok to take regular amox just not PCN Screening for malignant neoplasm of colon 095957252 Z12.11 DWP cologuard Smoker 52677016 F17.200 Smoking cessation encouraged . [id number] MD Willy MAE (LUMBER CARRIER OPERATOR) [address] [place] [address] 02/01/2024 12:01:22 02/17/2024 09:54:25 Dysuria 74390956 R30.0 - Reviewed dipstick result with patient- Will treat empiricall y with Augmentin- Urine culture sent; will adjust treatment as indicated by results Acute otitis media 19467 03 H66.91 - Will treat with 7-day course of Augmentin- Return to clinic if not improved after antibiotic treatment- Recommende d following up with ENT Candidiasis of vagina 72 014659 B37.31 - Refilled fluconazol e to empiricall y treat antibiotic -related yeast infections Glycosuria 15792687 R81 - Patient with large glucose on urine dipstick, suggestive of poorly controlled diabetes- Recommende d following up with PCP about diabetes management Positive s creening for depression on PHQ-9 (Patient Health Questionnaire 9) 2883338166 94424 Z13.31 - Positive PHQ-9 with negative PHQ-2- Has diagnosis of anxiety, depression on problem list- Patient to follow up with PCP for further management [id number] Chery Pruett-MD Willy Song (Adult Med) [address] [place] [address] 02/09/2024 11:43:54 02/10/2024 15:12:22 Tobacco dependence syndrome 22165595 F17.200 Smoking cessation encouraged . Hepatomegaly 73264942 R1 6.0 enlarged and fatty liver, would like to refer to GI for further eval and treatment, Type 2 stephanie betes mellitus 69018665 E11.9 a1c last 08/18/23- 6.8; today is 7.3check blood sugar daily, having issues checkingco nt with metformin 1000 mg bidglipizi de 5 mg bid, will STOP to avoid hypoglycem ic eventsjard iance 10 mg qdtolerati ng-trulici ty-cont 4.5 mg, out for a few days, rx was denied d/t needing apt;dwp work on compliance with meds and diet Acute sero us otitis media of bilateral ears [id number] 928016 H65.03 just finished augmentin and still Shaw TM erythema and edema/bulg ing, start cefdinir, follow up with ENT Morbid obesity 744227993 E66.01 advised low fat, low cholestero l, low carb diet, regular exercise and weight reduction. Chronic ob structive pulmonary disease 07163133 J44.9 refill ventolin inhaler for prn usestart control inhaler, symbicort Mixed anxi ety and depressive disorder 110390219 F41.8 pt stopped wellbutrin , citalopram and effexordwp self care and meditation Essential hypertension 15946818 I10 no cough with losartan 25 mg; continueco nt metoprolol ER 50 mg qd Cervical radiculopathy 83551907 M54.12 dwp need to get copy of CT, could be pinched nerve, recommende d exercise/s tretching, can refer to PT if needed Candidiasis of vagina 72 035940 B37.31 increased vaginal yeast infections [id number] MD Willy Pedersen (Adult Med) [address] [place] [address] 02/14/2024 11:43:55 02/14/2024 19:30:38 Chronic rhinitis 36980440 J31.0 follow up one month Acute otitis media 67625 03 H66.91 scope ear if not improving [id number] MD Willy Machado (Adult Med) [address] [place] [address] 04/19/2024 10:35:08 04/20/2024 12:10:23 Chronic otitis media 50323803 H66.90 - pt to see ENT-avoid q tip [id number] MD Willy Pedersen (Adult Med) [address] [place] [address] 05/01/2024 10:52:14 05/02/2024 16:11:53 Chronic serous otitis media of right ear 874288859 H65.21 follow up at [facility] for exam under the microscope [id number] MD Willy Nagel (Adult Med) [address] [place] [address] 05/14/2024 09:49:25 05/15/2024 16:11:21 Dysuria 13572472 R30.9 urine dip negative, will send for culture and notify pt if abx needed, dwp to increase fluids and RTO if increase in pain or fever or other changes occur. Type 2 stephanie betes mellitus 49676969 E11.9 a1c: 08/18/23- 6.8, 02/09/24- 7.3, 05/14/24- 8.1check blood sugar daily, having issues checkingco nt with metformin 1000 mg bidglipizi de 5 mg bid, will STOP to avoid hypoglycem ic eventsjard iance 10 mg qdtolerati ng-trulici ty-cont 4.5 mg, out for due to shortage- will try to get ozempicdwp work on compliance with meds and diet Essential hypertension 38904247 I10 no cough with losartan 25 mg; continueco nt metoprolol ER 50 mg qd Gastroesop hageal reflux disease 521502054 K21.9 takes OTC prilosecco nt with GI, has upcoming scopes planned Dyslipidemia 874815974 E 78.5 taking simvastati n 40 mg q pm, ldl checked by cardiology Morbid obesity 369792481 E66.01 advised low fat, low cholestero l, low carb diet, regular exercise and weight reduction. Chronic ob structive pulmonary disease 97222707 J44.9 refill ventolin inhaler for prn usestart control inhaler, symbicort Tobacco user 503294448 Z 72.0 Smoking cessation encouraged . Urinary incontinence 165 011959 R32 has gradually increased and loses a large amount of urine, using period panties with a pad to absorb;con t oxybutynin , will increase dose to 5 mg bid [id number] Asif Baez MD [facility] [address] [place] [address] 05/14/2024 11:41:02 05/16/2024 12:50:27 Chronic otitis externa of right external auditory canal 8703921355 349608 H60.61 follow back in a month keep ear dry [id number] MD Willy Nagel (Adult Med) [address] [place] [address] 08/16/2024 10:16:24 08/21/2024 09:26:30 Flank pain 374560310 R10.9 urine dip negative, will send for culture and notify pt if abx needed, dwp to increase fluids and RTO if increase in pain or fever or other changes occur. Type 2 stephanie betes mellitus 53348138 E11.9 a1c: 3- 6.8, 4- 7.3, 4- 8./ -7.5check blood sugar daily, having issues checkingco nt with metformin 1000 mg bidglipizi de 5 mg bid, will STOP to avoid hypoglycem ic eventsjard iance 10 mg qdtolerati ng-trulici ty-cont titrating up to 4.5 mg,dwp work on compliance with meds and diet Gastroesop hageal reflux disease 821651326 K21.9 takes OTC prilosecco nt with GI, has upcoming scopes planned Essential hypertension 12187692 I10 no cough with losartan 25 mg; continueco nt metoprolol ER 50 mg qd Obesity 903383661 E66.8 advised low fat, low cholestero l diet, regular exercise and weight reduction. [id number] MD Willy Nagel (Adult Med) [address] [place] [address] 11/19/2024 11:24:34 11/20/2024 08:41:24 Type 2 diabetes mellitus 91825193 E11.9 a1c: 3- 6.8, 4- 7.3, 4- 8.19/ -7.-7.2chec k blood sugar daily, having issues checkingco nt with metformin 1000 mg bidglipizi de 5 mg bid, will STOP to avoid hypoglycem ic eventsjard iance 10 mg qdtolerati ng-trulici ty-cont titrating up to 4.5 mg,dwp work on compliance with meds and diet Gastroesop hageal reflux disease 199799476 K21.9 takes OTC prilosecco nt with GI, has upcoming scopes planned Essential hypertension 40960629 I10 no cough with losartan 25 mg; continueco nt metoprolol ER 50 mg qd Obesity 509868027 E66.9 advised low fat, low cholestero l diet, regular exercise and weight reduction. Screening mammography of bilateral breasts 2440979939 97503 Z12.31 Immunization advised 310 932962 Z71.9 Chronic rhinitis 5688403 6 J31.0 post nasal drainage [id number] MD Willy Nagel (Adult Med) [address] [place] [address] 12/26/2024 15:33:02 01/02/2025 18:03:16 Cough 54631092 R05.9 covid and flu negTessalo n perles to help with cough Mixed anxi ety and depressive disorder 295147374 F41.8 pt stopped wellbutrin , citalopram and effexordwp self care and meditation declines med or referral today Respiratory crackles 484 92230 R09.89 shaw lower lobeswill start abx Obesity 667997748 E66.9 advised low fat, low cholestero l diet, regular exercise and weight reduction. [id number] MD Willy Nagel (Adult Med) [address] [place] [address] 01/31/2025 14:24:47 02/01/2025 08:51:28 Cough 72627532 R05.9 advised mucinex to help get phlegm out Respiratory crackles 484 24649 R09.89 shaw lower lobesjust finished doxy and did not clear upwill send for xray Obesity 822191446 E66.9 advised low fat, low cholestero l diet, regular exercise and weight reduction. Chronic ob structive pulmonary disease 65451493 J44.9 -- ventolin inhaler for prn use--contr ol inhaler, symbicort dwp possible pulmonary referral if not improved, will get cxr [id number] Florentin Garvey MD [facility] (Adult Med) [address] [place] [address] 02/12/2025 10:39:33 02/26/2025 15:10:35 Chronic obstructive pulmonary disease 10367988 J44.9 -patient agreeable to renewal of COPD treatment including albuterol p.r.n. and Symbicort b.i.d. daily inhaler-ca re instructantonio ns provided-p atient to follow up with PCP for further management Acute otitis media 80558 03 H66.91 -patient presentati on consistent with acute otitis media-carlie ent agreeable to treatment with cefdinir 300 mg b.i.d. for 7 days. HUNTER SKIN DIVER advised patient to consume OTC probiotic or yogurt while on antibiotic therapy.-p atient to follow up in clinic if symptoms worsen or do not improve-ER precaution s advised [id number] Shmuel Thakkar MD [facility] [place] [facility] [address] [place] [address] 03/05/2025 14:29:19 03/08/2025 12:49:27 Smoker 20730027 F17.200 Nicotine cessation for cardiovasc ular risk reduction reinforced . Palpitations 92444861 R0 0.2 Obtain extended human factors advisor lead. Encouraged hydration, limiting caffeine/a lcohol, increasing dietary intake of potassium/ magnesium. Red flag symptoms in the interim reinforced . 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 Prescribe p.r.n. Lasix with usage reviewed. Low-sodium diet, regular weight monitoring and ambulatory blood pressure monitoring reinforced . Morbid obesity 742637041 E66.01 Diet/exerc ise reinforced for weight management and cardiovasc ular risk reduction. 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 Red flag symptoms to seek ER attention discussed. 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 This will also help delineate the exact course of the left coronary artery to consider surgical evaluation in case of intra-tatiana rial course. [id number] MD Willy Nagel (Adult Med) [address] [place] [address] 03/28/2025 08:12:35 04/04/2025 09:36:49 Chronic obstructive pulmonary disease [id number] J44.9 -- ventolin inhaler for prn use--contr ol inhaler, symbicortn ow also following with Cardiology , undergoing testing at this time, may still need referral to Pulmonary Type 2 stephanie betes mellitus [id number] E11.9 a1c: 3- 6.8, 4- 7.3, 4- 8.19/ -7./-7.25/-6.9chec k blood sugar daily, having issues checkingco nt with metformin 1000 mg- stopping due to pt concernedg lipizide 5 mg bid, will STOP to avoid hypoglycem ic eventsjard iance 10 mg qd, increasing since stopping metformint olerating- trulicity- 4.5 mg,dwp work on compliance with meds and diet Obese class III [id number] E66.813 advised low fat, low cholestero l, low carb diet, regular exercise and weight reduction. Candidiasis of vagina 72 [id number] B37.31 increased vaginal yeast infections related to antibiotic use, patient is also diabetic Panniculitis [id number] M7 9.3 increased rash with skin and skin contact, under breast, under belly, thighsskin hygiene discussed, we will also send nystatin cream Essential hypertension [id number] I10 stable today, now seeing Cardiology , continue as planned Dyslipidemia [id number] E 78.5 taking simvastati n 40 mg q pm, ldl checked by cardiology Gastroesop hageal reflux disease [id number] K21.9 takes OTC prilosecco nt with GI Tobacco de pendence syndrome 85034957 F17.200 Smoking cessation encouraged . Health Concerns Section Related Observation LastModified by Organization Detai ls LastModified Time None Recorded Concern Status LastModified by Organization Details LastModified Time None Recorded Advance Directives Directive N: Payers Encounter Date Sequence Insurance Name Policy Number Policy Burgos Covered Member ID Burgos Member ID Guarantor Name 12/26/2024 1 [facility] (MEDICAID HMO) [id number] Candida Eaker [id number] Candida Muna Bales 12/26/2024 2 *SELF PAY* Al icia Muna Eaker 01/31/2025 1 [facility] (MEDICAID HMO) [id number] Candida Eaker [id number] Candida Muna Eaker 01/31/2025 2 *SELF PAY* Al icia Muna Eaker 02/12/2025 1 [facility] (MEDICAID HMO) [id number] 0003 Candida Eaker [id number] Candida Muna Eaker 02/12/2025 2 *SELF PAY* Al icia Muna Eaker 03/05/2025 1 [facility] (MEDICAID HMO) [id number] 0003 Candida Eaker [id number] Candida Muna Eaker 03/05/2025 2 *SELF PAY* Al icia Muna Eaker 03/28/2025 1 [facility] (MEDICAID HMO) [id number] 0003 Candida Eaker [id number] Candida Muna Eaker 03/28/2025 2 *SELF PAY* Al icia Muna Bales Notes Date Note Type Note Provider Name and Address Organization Details Recorded Time 12/26/19 25 text/htm l sx for 3 days. congestion, sinus pain, wet cough with dark yellow phlegm. exposed to flu yesterday. otc advil sinus Amita Johnson APN, [employer] Attn: Accounting[address] [place], [address], [facility] [place] 01/02/2025 16:09:13 02/01/20 25 text/htm l URI-green phlegm. states the abx helped some last month but then came back and down mucous is green congestion, sinus pain, wet cough Amita Johnson APN, [employer] Attn: Accounting[address] [facility], [place], [address], [facility] 01/31/2025 16:06:54 02/13/20 25 text/htm l Patient presents to the clinic with acute complaint of cough. Patient is established with Amita HUNTER SKIN DIVER for primary care. Patient's past medical history includes: COPD, dyslipidemia, hypertension, GERD, hepatomegaly, anxiety, depression, SOPHIA, tobacco use, and type 2 diabetes. -patient was treated with doxycycline in December for pneumonia-patient was recently prescribed Medrol Dosepak for symptom management. Patient did not take medrol dose pack, because she was on vacation and she did not want to raise her blood glucose.-She has been taking mucinex for symptom management.-Reports symptoms of body aches, fatigue, qgjft-iyjjfxgyib-drnil thick sputum, sore throat, ear pain, sinus congestion, ear discharge from right ear.-Denies symptoms of fevers, nausea, vomiting, or diarrhea.-Denies any known sick contacts. ERIKA ARGUELLESBC Attn: Accounting,[address] [facility], [place], [address], [facility] 02/26/2025 07:07:39 03/05/20 25 text/htm l I had the pleasure of seeing this patient as a new consultation from Ms. Amita Johnson NP for recommendations regarding evaluation and management of cardiac etiology of palpitations and chest pain. HPI:Patient has been noticing increasing palpitations. She reports dyspnea on exertion with NYHA class 2 symptoms when occasional episodes of lower extremity edema left greater than right. She has been noticing substernal chest pain which is pressure-like, no definite exertional component, lasting for a few minutes. Palpitations lasting for 2-3 minutes with the associated dizziness but no syncope. No triggering factors. Denies recent COVID. Denies history of DVT/PE. 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 Patient reports she has had a cardiac catheterization by her previous cardiology team subsequently which did not show significant CAD. Results are not available by a review of EMR. Coronary CTA, 2013: No significant coronary atherosclerosis, left coronary artery arises anomalously from the right coronary artery and extends posteriorly between the ascending thoracic aorta and superior aspect of the left atrium Shmuel Thakkar MD Attn: Accounting,[address] [place], [address], [facility] 03/05/2025 15:32:14 03/28/20 25 text/htm l Diabetes F/UReported bypatient.Labs:last A1C result: 7.2 Context:not missing doses of medications; no side effects from medications Associated Symptoms:no dizziness; no sweats; no headaches; no confusion; no increased thirst; no increased appetite; no increased urination; no blurred vision; no numbness of feet; no calluses on feetNotes:creatinine in January was normalwants to stop metformincompliant with medicationnot always compliant with dietHypertension F/UReported bypatient.Associated Symptoms:no dizziness; no lightheadedness; no chest pain; no shortness of breath; no palpitations; no edema; no calf pain with exertion Lifestyle:regular exercise; limiting/avoiding salt Medications:taking medications as directed; no side effects from medication Amita Johnson APN, [employer] Attn: Accounting,[address] [place], [address], [facility] 03/28/2025 10:17:26 OBGyn Episode Ob Episode Information Episode Created Date Number of Fetuses Patient Bloodtype Patient rh Status Prepregnancy Weight lbs Domestic Partner Domestic Partner Phone Father Name Train Brakeman Status 03/10/20 21 1 CLOSED Fetus Data First Name Last Name Admitted to NICU Weight (g) Sex Living Outcome Pediatric Complications Fetus ID Race Codes Race Delivery Type 2976.47 0704 F Full Term [id number] Raad Calculation Initial Raad Date Initial Exam Date Initial Exam Provider Initial Ultrasound Date Last Menstrual Period Date Ultra Sound Weeks Gestation 0 Eighteen To Twenty Week Raad Update Ultra Sound Date Fundal Height At Umbil Quickening Date Ultra Sound Latest Weeks Gestation Final Raad Confirmed By Final Raad Confirmed Date Final Raad Date Ultra Sound Latest Days Gestation 0 0 Menstrual History Last Menstrual Date Menses Monthly On Bcp Conception Prior Menses Frequency Hcg Plus Date Menarche Onset Age Delivery Information Delivery Date Delivery Type Labor Anesthesia Weeks Gestation Incision Type Labor Labor Length Hrs Delivered By Post Complications Tubal Sterilization Discharge Date Comments 9 Discharge Information Feeding Method Contraceptive Method Maternal HG B and HCT Levels Ob Episode Information Episode Created Date Number of Fetuses Patient Bloodtype Patient rh Status Prepregnancy Weight lbs Domestic Partner Domestic Partner Phone Father Name Train Brakeman Status 03/10/20 21 1 CLOSED Fetus Data First Name Last Name Admitted to NICU Weight (g) Sex Living Outcome Pediatric Complications Fetus ID Race Codes Race Delivery Type 2976.47 0704 F Full Term [id number] Raad Calculation Initial Raad Date Initial Exam Date Initial Exam Provider Initial Ultrasound Date Last Menstrual Period Date Ultra Sound Weeks Gestation 0 Eighteen To Twenty Week Raad Update Ultra Sound Date Fundal Height At Umbil Quickening Date Ultra Sound Latest Weeks Gestation Final Raad Confirmed By Final Raad Confirmed Date Final Raad Date Ultra Sound Latest Days Gestation 0 0 Menstrual History Last Menstrual Date Menses Monthly On Bcp Conception Prior Menses Frequency Hcg Plus Date Menarche Onset Age Delivery Information Delivery Date Delivery Type Labor Anesthesia Weeks Gestation Incision Type Labor Labor Length Hrs Delivered By Post Complications Tubal Sterilization Discharge Date Comments 3 Discharge Information Feeding Method Contraceptive Method Maternal HG B and HCT Levels Ob Episode Information Episode Created Date Number of Fetuses Patient Bloodtype Patient rh Status Prepregnancy Weight lbs Domestic Partner Domestic Partner Phone Father Name Train Brakeman Status 03/10/20 21 1 CLOSED Fetus Data First Name Last Name Admitted to NICU Weight (g) Sex Living Outcome Pediatric Complications Fetus ID Race Codes Race Delivery Type Ectopic [id number] Raad Calculation Initial Raad Date Initial Exam Date Initial Exam Provider Initial Ultrasound Date Last Menstrual Period Date Ultra Sound Weeks Gestation 0 Eighteen To Twenty Week Raad Update Ultra Sound Date Fundal Height At Umbil Quickening Date Ultra Sound Latest Weeks Gestation Final Raad Confirmed By Final Raad Confirmed Date Final Raad Date Ultra Sound Latest Days Gestation 0 0 Menstrual History Last Menstrual Date Menses Monthly On Bcp Conception Prior Menses Frequency Hcg Plus Date Menarche Onset Age Delivery Information Delivery Date Delivery Type Labor Anesthesia Weeks Gestation Incision Type Labor Labor Length Hrs Delivered By Post Complications Tubal Sterilization Discharge Date Comments 9 Discharge Information Feeding Method Contraceptive Method Maternal HG B and HCT Levels
--- OUTSIDE RECORDS SUMMARY | 2025-04-20 17:30 | XMS_ITS | Referral Summary ---
Author Organization [address] lto Address [address] [place] [address] Care Team Providers Care Crew Leader Gluing Name Role Phone Amita Wisdom NP Primary Care Provider Encounters Date Type Department Care Team Description 03/29/2025 7:59 AM CDT - 03/29/2025 11:59 PM CDT Hospital Encounter [facility] [address] [place] [address] Anomalous aortic origin of coronary artery Discharge Disposition: Discharge to home or self care from Last 3 Months Allergies Active Allergy Reactions Criticality Noted Date Comments Moxifloxacin Palpitations Low 11/12/2021 Penicillins Hives Medium Pt states can take amoxicillin without reaction Medications metFORMIN (GLUCOPHAGE) 1,000 mg tablet metformin 1,000 mg tablet TK 1 T PO BID WC Active glipiZIDE (GLUCOTROL) 5 mg tablet 1 Active metoprolol XL (TOPROL-XL) 50 mg extended release tablet metoprolol succinate ER 50 mg tablet,extended release 24 hr Active lisinopriL (PRINIVIL,ZESTR IL) 20 mg tablet lisinopril 20 mg tablet Active citalopram (CeleXA) 20 mg tablet citalopram 20 mg tablet Active [address]ole [address] (PROTONIX) 40 mg EC tablet Take 40 mg by mouth 2 (two) times a day 1 Active simvastatin (ZOCOR) 40 mg tablet simvastatin 40 mg tablet Active omeprazole (PriLOSEC) 20 mg capsule Take 20 mg by mouth daily Active Active Problems No known active problems Immunizations Immunization Administration Dates Next Due Influenza, Unspecified 10/27/2021 Social History Tobacco Use Types Packs/Day Years Used Date Smoking Tobacco: Every Day Cigarettes 0.8 30 Smokeless Tobacco: Never Comments No Sex and Gender Information Value Date Recorded Sex Assigned at Not on file Legal Sex Female 7:05 PM BPM DEVELOPER Gender Identity Female 04/20/2023 1:07 PM CDT Sexual Orientation Not on file Last Filed Vital Signs Vital Sign Reading Time Taken Comments Blood Pressure 130/75 03/29/2025 9:09 AM CDT Pulse 70 03/29/2025 9:09 AM CDT Temperature 36.8 C (98.2 F) 12/10/2021 9:30 AM BPM DEVELOPER Respiratory Rate 24 12/10/2021 9:30 AM BPM DEVELOPER Oxygen Saturation 96% 12/10/2021 9:30 AM BPM DEVELOPER Inhaled Oxygen Concentration - - Weight 124.7 kg (275 lb) 12/10/2021 9:30 AM BPM DEVELOPER Height 154.9 cm (5' 1) 12/10/2021 9:30 AM BPM DEVELOPER Body Mass Index 51.96 12/10/2021 9:30 AM BPM DEVELOPER Plan of Treatment Not on file Procedures Procedure Name Priority Date/Time Associated Diagnosis Comments CT HEART MORPHOLOGY AND CORONARY ARTERIES W CONTRAST Schedule Routine, Read Routine (OP Routine) 03/29/2025 9:36 AM CDT Anomalous aortic origin of coronary artery from Last 3 Months Results * CTA Heart and Coronary Arteries W Morphology when Performed (03/29/2025 9:36 AM CDT) Anatomical Region Laterality Modality Chest N/A Computed Tomogra phy 03/29/2025 10:2 2 AM CDT Impressions 04/02/2025 7:58 AM CDT 1. No evidence of obstructive coronary artery disease but there are multifocal atherosclerotic plaques with a calculated calcium score of 150. 2. Findings of dilated cardiomyopathy with global systolic dysfunction of the left ventricle, and estimated ejection fraction of 40%. There is fatty metaplasia with a subepicardial and mid-myocardial distribution which may be related to prior myocarditis such as from viral infection or connective tissue disease, or possibly sarcoidosis. 3. 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 Dictated by: Ben Bazan M.D. The radiology attending physician has personally reviewed this study, and had reviewed and/or edited this written report and agrees with it. Electronically signed by: Abhay Castellano M.D. Narrative 04/02/2025 7:58 AM CDT EXAMINATION: CORONARY CT ANGIOGRAM HISTORY: Anomalous coronary artery TECHNIQUE: CT angiography of the coronary arteries was performed after the administration of 120 mL of Optiray 350. Images were also obtained precontrast for the purposes of calcium scoring. 30 mg of metoprolol was administered intravenously prior to the examination. The patient's heart rate and blood pressure at the time of the examination were 70 beats per minute and 130/75 mmHg. Images were transferred to a 3D workstation for additional post-processing. FINDINGS: The coronary arteries are right-sided dominant system dominant. There is anomalous origin of the left main artery which arises from the right coronary artery. There is a common origin of the right and left coronary arteries. The left main coronary artery demonstrates a retroaortic route. No evidence of inter-arterial or intramural course. Examination for stenosis is mildly limited due to small caliber vessels and elevated heart rate during the examination. Right coronary system: Mild calcified atherosclerotic disease of the proximal and vertical segment of the right coronary artery with less than 30% luminal reduction. Left coronary system: Retroaortic course of the left main artery. There is a mild calcified atherosclerotic plaque with positive remodeling with approximately 30% luminal reduction within the proximal centimeter of the left main coronary artery. Additional mild atherosclerotic plaques of the distal aspect of the left main artery. The left anterior descending and left circumflex arteries are relatively small in size. There is an early branching of the 1st obtuse marginal artery which is also small in caliber. There is calcified atherosclerotic plaque of the proximal segments of the left anterior descending artery, circumflex artery, and 1st obtuse marginal. The calculated calcium score is 150. Other findings: There is fatty metaplasia noted within the mid myocardium, involving the septal, anterior, and inferior wall of the left ventricle from the basal to apical segments. There is sparing of the subendocardial and subendocardial myocardium. There is left ventricular enlargement with global systolic dysfunction. The LV EF is estimated at 40%. Procedure Note Abhay Castellano MD - 04/02/2025 EXAMINATION: CORONARY CT ANGIOGRAM HISTORY: Anomalous coronary artery TECHNIQUE: CT angiography of the coronary arteries was performed after the administration of 120 mL of Optiray 350. Images were also obtained precontrast for the purposes of calcium scoring. 30 mg of metoprolol was administered intravenously prior to the examination. The patient's heart rate and blood pressure at the time of the examination were 70 beats per minute and 130/75 mmHg. Images were transferred to a 3D workstation for additional post-processing. FINDINGS: The coronary arteries are right-sided dominant system dominant. There is anomalous origin of the left main artery which arises from the right coronary artery. There is a common origin of the right and left coronary arteries. The left main coronary artery demonstrates a retroaortic route. No evidence of inter-arterial or intramural course. Examination for stenosis is mildly limited due to small caliber vessels and elevated heart rate during the examination. Right coronary system: Mild calcified atherosclerotic disease of the proximal and vertical segment of the right coronary artery with less than 30% luminal reduction. Left coronary system: Retroaortic course of the left main artery. There is a mild calcified atherosclerotic plaque with positive remodeling with approximately 30% luminal reduction within the proximal centimeter of the left main coronary artery. Additional mild atherosclerotic plaques of the distal aspect of the left main artery. The left anterior descending and left circumflex arteries are relatively small in size. There is an early branching of the 1st obtuse marginal artery which is also small in caliber. There is calcified atherosclerotic plaque of the proximal segments of the left anterior descending artery, circumflex artery, and 1st obtuse marginal. The calculated calcium score is 150. Other findings: There is fatty metaplasia noted within the mid myocardium, involving the septal, anterior, and inferior wall of the left ventricle from the basal to apical segments. There is sparing of the subendocardial and subendocardial myocardium. There is left ventricular enlargement with global systolic dysfunction. The LV EF is estimated at 40%. IMPRESSION: 1. No evidence of obstructive coronary artery disease but there are multifocal atherosclerotic plaques with a calculated calcium score of 150. 2. Findings of dilated cardiomyopathy with global systolic dysfunction of the left ventricle, and estimated ejection fraction of 40%. There is fatty metaplasia with a subepicardial and mid-myocardial distribution which may be related to prior myocarditis such as from viral infection or connective tissue disease, or possibly sarcoidosis. 3. 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 Dictated by: Ben Bazan M.D. The radiology attending physician has personally reviewed this study, and had reviewed and/or edited this written report and agrees with it. Electronically signed by: Abhay Castellano M.D. Shmuel Thakkar MD IMG CT PROCEDURES Final Result from Last 3 Months Insurance [facility] Care Teams Crew Leader Gluing Relationship Specialty Start Date End Date Amita Wisdom NP [address] [place] [address] [place] [id number] PCP - General Nurse Practitioner 07/31/21
--- OUTSIDE RECORDS SUMMARY | 2025-04-20 17:30 | XMS_ITS | Clinical Summary ---
Author Organization [facility] Address [address] [place] [address] Phone Care Team Providers Care Retail Center Receptionist Name Role Phone Amita Wisdom APRN, CNP Primary Care Provider [phone] Allergies Active Allergy Reactions Criticality Noted Date Comments Penicillins Hives 04/26/2019 Medications pantoprazole (PROTONIX) 40 MG Tablet Delayed Response Take 1 Tablet by mouth 2 times daily. 20 Tablet 1 Active Magnesium 400 MG Capsule Take 1 Tablet by mouth daily. 30 Capsule 1 Active albuterol 108 (90 Base) MCG/ACT Aerosol Solution take 2 Puffs by inhalation every 6 hours as needed for Cough. 6.7 g 4 Active Encounters Date Type Department Care Team Description 02/18/2025 6:55 PM CDT - 02/18/2025 10:12 PM CDT [facility] [address] [place] [address] Dereck Carrington MD Community acquired pneumonia Discharge Disposition: Discharged to home or Selfcare 02/18/2025 Travel 01/31/2025 2:25 PM CDT - 01/31/2025 11:59 PM CDT Hospital Encounter [facility] Diagnostic Radiology [address] [place] [address] Amita Wisdom APRN, CNP Discharge Disposition: Discharged to home or Selfcare 01/31/2025 Travel 01/31/2025 Transcribe Orders [facility] Central Scheduling [address] [place] [address] Amita Wisdom APRN, CNP Oth symptoms and signs involving the circ and resp systems (Primary Dx) from Last 3 Months Social History Tobacco Use Types Packs/Day Years Used Date Smoking Tobacco: Every Day Cigarettes Smokeless Tobacco: Never Alcohol Use Standard Drinks/Week Comments Not Currently 0 (1 standard drink = 0.6 oz pur e alcohol) Comments No Sex and Gender Information Value Date Recorded Sex Assigned at Not on file Legal Sex Female 8:49 PM CDT Gender Identity Not on file Sexual Orientation Not on file Last Filed Vital Signs Vital Sign Reading Time Taken Comments Blood Pressure 149/101 02/18/2025 10:11 PM CDT Pulse 88 02/18/2025 10:11 PM CDT Temperature 36.9 C (98.4 F) 02/18/2025 6:32 PM CDT Respiratory Rate 24 02/18/2025 10:11 PM CDT Oxygen Saturation 94% 02/18/2025 10:11 PM CDT Inhaled Oxygen Concentration - - Weight 104.3 kg (230 lb) 02/18/2025 6:32 PM CDT Height 154.9 cm (5' 1) 02/18/2025 6:32 PM CDT Body Mass Index 43.46 02/18/2025 6:32 PM CDT Plan of Treatment Health Maintenance Due Date Last Done Comments Hepatitis C Virus (HCV) Screening 1969 TdaP Immunization 1969 Hepatitis B Immunization (1 of 3 - 19+ 3-dose series) 01/28/1988 Pap Smear 1990 Cervical Cancer Screening (CCS) 1999 HPV/Cotest 1999 Colonoscopy 2014 Colorectal Cancer Screening 2014 Pneumococcal Immunization (50+ years) (2 of 2 - PCV) 07/27/2018 07/27/2017 Cologuard 2019 Immunochemical Fecal Occult Blood 2019 Zoster Immunization (1 of 2) 2019 Mammogram 03/20/2022 03/20/2021 SARS-COV-2 Immunization (2 - season) 2024 02/26/2021 Influenza Immunization (Season Ended) 2025 10/27/2021, 09/04/2021, 07/27/2017, Additional history exists Respiratory Syncytial Virus (RSV) Immunization (Adult) (1 - 1-dose 75+ series) 01/28/2044 Pneumococcal Immunization Combined Discontinued 07/27/2017 Meningococcal Immunization (ACWY) Aged Out No longer eligible based on patient's age to complete this topic Rotavirus Immunization Aged Out No lo nger eligible based on patient's age to complete this topic Procedures Procedure Name Priority Date/Time Associated Diagnosis Comments GOLD TOP TUBE STAT 02/18/2025 8:00 PM CDT CBC WITH AUTO DIFFERENTIAL STAT 02/18/2025 8:00 PM CDT EXTRA TUBES STAT 02/18/2025 8:00 PM CDT B-TYPE NATRIURETIC PEPTIDE (BNP) STAT 02/18/2025 8:00 PM CDT D-DIMER STAT 02/18/2025 8:00 PM CDT THYROID STIMULATING HORMONE (TSH) STAT 02/18/2025 8:00 PM CDT TROPONIN I, HIGH SENSITIVITY (HSTRP) STAT 02/18/2025 8:00 PM CDT CMP (COMPREHENSIVE METABOLIC PANEL) STAT 02/18/2025 8:00 PM CDT COMPLETE BLOOD COUNT (CBC) WITH DIFF STAT 02/18/2025 8:00 PM CDT XR CHEST 2 VIEWS STAT 02/18/2025 7:32 PM CDT EKG 12 LEAD STAT 02/18/2025 6:33 PM CDT EKG SCAN 02/18/2025 12:00 AM CDT XR CHEST 2 VIEWS STAT 01/31/2025 2:34 PM CDT Oth symptoms and signs involving the circ and resp systems ARLET SCREENING BILATERAL DIGITAL W CAD W CHRISTA Routine 03/20/2021 11:40 AM CDT Encounter for mammogram to establish baseline mammogram from Last 3 Months or Most Recently Relevant to Health Maintenance Results * TROPONIN I, HIGH SENSITIVITY (HSTRP) (02/18/2025 8:00 PM CDT) [facility] TROPONIN I, HIGH SENSITIVITY- [place] 8 <=14 ng/L 02/18/2025 9:43 PM CDT [facility] Comment: High-sensitivity troponin I results are reported in ng/L making the result appear to be 1,000 times higher than the contemporary troponin I value which is reported in ng/ml. Results from [place]. Blood Venipuncture / Unknown 02/18/2025 8:00 PM CDT 02/18/2025 8:58 PM CDT Dereck Carrington MD CHEMISTRY ORDERABLES Rina l Result [facility] [address] [place] [address] * Gold Top Tube (02/18/2025 8:00 PM CDT) Blood No Phlebotomy Charged / Unknown 02/18/2025 8:00 PM CDT 02/18/2025 8:57 PM CDT Dereck Carrington MD CHEMISTRY ORDERABLES Rina l Result [facility] [address] [place] [address] * (ABNORMAL) CBC with Auto Differential (02/18/2025 8:00 PM CDT) [facility] WBC 4.56 4.00 - 12.00 10(3)/mcL 02/18/2025 9:02 PM CDT [facility] RBC 5.22 3.80 - 5.30 10(6)/mcL 02/18/2025 9:02 PM CDT [facility] HEMOGLOBIN (HGB) 16.4(H) 12.0 - 15.8 g/dL 02/18/2025 9:02 PM CDT [facility] HEMATOCRIT (HCT) 49.5(H) 36.0 - 47.0 % 02/18/2025 9:02 PM CDT [facility] MCV 94.8 82.0 - 96.0 fL 02/18/2025 9:02 PM CDT [facility] MCH 31.4 26.0 - 34.0 pg 02/18/2025 9:02 PM CDT [facility] MCHC 33.1 31.0 - 36.0 g/dL 02/18/2025 9:02 PM CDT [facility] PLATELET COUNT 106(L) 140 - 440 10(3)/[facility] 02/18/2025 9:02 PM CDT [facility] RDW 14.4 11.8 - 15.5 % 02/18/2025 9:02 PM CDT [facility] MPV 12.2 9.7 - 12.4 fL 02/18/2025 9:02 PM CDT [facility] NEUTROPHILS 66.0 47.0 - 73.0 % 02/18/2025 9:02 PM CDT [facility] LYMPHOCYTES 24.1 18.0 - 42.0 % 02/18/2025 9:02 PM CDT [facility] MONOCYTES 7.9 4.0 - 12.0 % 02/18/2025 9:02 PM CDT [facility] EOSINOPHILS 1.3 0.0 - 5.0 % 02/18/2025 9:02 PM CDT [facility] BASOPHILS 0.7 0.0 - 1.0 % 02/18/2025 9:02 PM CDT [facility] ABSOLUTE NEUTROPHILS 3.01 1.60 - 7.70 10(3)/[facility] 02/18/2025 9:02 PM CDT [facility] ABSOLUTE LYMPHOCYTES 1.10(L) 1.30 - 3.20 10(3)/[facility] 02/18/2025 9:02 PM CDT [facility] ABSOLUTE MONOCYTES 0.36 0.20 - 1.00 10(3)/[facility] 02/18/2025 9:02 PM CDT [facility] ABSOLUTE EOSINOPHIL 0.06 0.00 - 0.40 10(3)/[facility] 02/18/2025 9:02 PM CDT [facility] ABSOLUTE BASOPHILS 0.03 0.00 - 0.10 10(3)/[facility] 02/18/2025 9:02 PM CDT [facility] NRBC PER 100 WBC 0 02/19/20 25 9:02 PM CDT [facility] Blood Venipuncture / Unknown 02/18/2025 8:00 PM CDT 02/18/2025 8:57 PM CDT Dereck Carrington MD HEMATOLOGY ORDERABLES Fin al Result Performing Organization Address City/[facility]/ZIP Co de Phone Number [facility] [address] [place] [address] * Thyroid Stimulating Hormone (TSH) [id number] (02/18/2025 8:00 PM CDT) TSH 1.604 0.300 - 5.000 mIU/L 02/18/2025 9:43 PM CDT [facility] Blood Venipuncture / Unknown 02/18/2025 8:00 PM CDT 02/18/2025 8:58 PM CDT Dereck Carrington MD CHEMISTRY ORDERABLES Rina l Result [facility] [address] [place] [address] * (ABNORMAL) D-DIMER [id number] (02/18/2025 8:00 PM CDT) [facility] D DIMER 1.62(H) <0.50 mcg/mL FEU 02/18/2025 9:17 PM CDT [facility] Blood Venipuncture / Unknown 02/18/2025 8:00 PM CDT 02/18/2025 8:58 PM CDT Narrative [facility] - 02/18/2025 9:17 PM CDT The FDA has approved this method to exclude the diagnosis of DVT and/or PE at the cutoff value of <0.50 mcg/mL FEU. us Dereck Carrington MD HEMATOLOGY ORDERABLES Fin al Result [facility] [address] [place] [address] * (ABNORMAL) Comprehensive Metabolic Panel (Cmp) [id number] (02/18/2025 8:00 PM CDT) [facility] SODIUM 138 136 - 145 mmol/L 02/18/2025 9:28 PM CDT [facility] POTASSIUM 3.8 3.5 - 5.1 mmol/L 02/18/2025 9:28 PM CDT [facility] CHLORIDE 105 98 - 107 mmol/L 02/18/2025 9:28 PM CDT [facility] CO2, VENOUS 22 22 - 30 mmol/L 02/18/2025 9:28 PM CDT [facility] ANION GAP 14.8 <18.0 mmol/L 02/18/2025 9:28 PM CDT [facility] GLUCOSE 126(H) 70 - 99 mg/dL 02/18/2025 9:28 PM CDT [facility] BUN 8(L) 10 - 20 mg/dL 02/18/2025 9:28 PM CDT [facility] CREATININE, BLOOD 0.61 0.60 - 1.00 mg/dL 02/18/2025 9:28 PM T [facility] BUN/CREATININE RATIO 13 12 - 20 ratio 02/18/2025 9:28 PM [facility] TOTAL PROTEIN 6.6 6.0 - 8.0 g/dL 02/18/2025 9:28 PM CDT [facility] ALBUMIN 3.6 3.5 - 5.0 g/dL 02/18/2025 9:28 PM T [facility] A/G RATIO 1.2 1.0 - 2.2 02/18/2025 9:28 PM T [facility] CALCIUM 9.0 8.7 - 10.5 mg/dL 02/18/2025 9:28 PM T [facility] T BILI 0.8 0.2 - 1.2 mg/dL 02/18/2025 9:28 PM T [facility] SGOT (AST) 29 <43 U/L 02/18/2025 9:28 PM [facility] SGPT (ALT) 19 <56 U/L 02/18/2025 9:28 PM [facility] ALKALINE PHOSPHATASE 154(H) 40 - 150 U/L 02/18/2025 9:28 PM [facility] GFR, ESTIMATED >60 >=60 02/18/2025 9:28 PM [facility] Comment: Creatinine Clearance is the preferred criteria for selecting drug dose adjustments in renally impaired patients. The GFR is provided as additional pertinent clinical information. GFR is reported in mL/min/1.73 sq m. Calculation based on the Chronic Kidney Disease Epidemiology Collaboration (CKD- EPI) equation refit without adjustment for race. GFR, EST. >60 >=60 025 9:28 PM [facility] GFR, EST. NONAFRICAN >60 >=60 02/18/2025 9:28 PM [facility] Blood Venipuncture / Unknown 02/18/2025 8:00 PM CDT 02/18/2025 8:58 PM CDT Dereck Carrington MD CHEMISTRY ORDERABLES Rina l Result [facility] [address] [place] [address] * (ABNORMAL) B-Type Natriuretic Peptide (BNP) (02/18/2025 8:00 PM CDT) B TYPE NATRIURETIC PEPTIDE 417(H) <100 pg/mL 02/18/2025 9:33 PM CDT [facility] Blood Venipuncture / Unknown 02/18/2025 8:00 PM CDT 02/18/2025 8:57 PM CDT Dereck Carrington MD CHEMISTRY ORDERABLES Rina l Result Performing Organization Address City/[facility] Co de Phone Number [facility] [address] [place] [address] * XR CHEST 2 VIEWS (02/18/2025 7:32 PM CDT) Only the most recent of2 resultswithin the time period is included. Anatomical Region Laterality Modality Chest N/A Digital Radiogra phy 02/18/2025 8:39 PM CDT Impressions 02/18/2025 8:41 PM CDT IMPRESSION: Patchy consolidation projecting over the lower lobes on the lateral view may represent pneumonia in the appropriate clinical setting. Follow-up to ensure resolution is recommended. Narrative 02/18/2025 8:41 PM CDT EXAM DESCRIPTION: XR CHEST 2 VIEWS REASON FOR STUDY: Shortness of breath with chest pain and palpitations for few days, worse today. TECHNIQUE: PA and lateral radiographic views of the chest COMPARISON: Chest radiograph 01/31/2025 FINDINGS: LUNGS/PLEURAE: Patchy consolidation projecting over the lower lobes on the lateral view may represent pneumonia in the appropriate clinical setting. No large pleural effusion. There is no pneumothorax. HEART/MEDIASTINUM: Heart size is normal. Normal mediastinal and hilar contours. HARDWARE/LINES/TUBES: None. BONES: No acute findings. THIS IS AN ELECTRONICALLY VERIFIED FINAL REPORT 02/18/2025 8:39 PM - Electronically signed by Flynn Lopez M.D. LB: LB Report ID: [id number] Reading Location: [id number] Procedure Note Flynn Lopez MD - 02/18/2025 EXAM DESCRIPTION: XR CHEST 2 VIEWS REASON FOR STUDY: Shortness of breath with chest pain and palpitations for few days, worse today. TECHNIQUE: PA and lateral radiographic views of the chest COMPARISON: Chest radiograph 01/31/2025 FINDINGS: LUNGS/PLEURAE: Patchy consolidation projecting over the lower lobes on the lateral view may represent pneumonia in the appropriate clinical setting. No large pleural effusion. There is no pneumothorax. HEART/MEDIASTINUM: Heart size is normal. Normal mediastinal and hilar contours. HARDWARE/LINES/TUBES: None. BONES: No acute findings. THIS IS AN ELECTRONICALLY VERIFIED FINAL REPORT 02/18/2025 8:39 PM - Electronically signed by Flynn Lopez M.D. LB: LB Report ID: [id number] Reading Location: [id number] IMPRESSION: Patchy consolidation projecting over the lower lobes on the lateral view may represent pneumonia in the appropriate clinical setting. Follow-up to ensure resolution is recommended. Dereck Carrington MD IMG DIAGNOSTIC ORDERABLES Final Result * EKG 12 LEAD (02/18/2025 6:33 PM CDT) Ventricular Rate 97 BPM EXTERNAL EKG Atrial Rate 97 BPM EXTERNAL EKG P-R Interval 126 ms EXTERNAL EKG QRS Duration 114 ms EXTERNAL EKG Q-T Duration 354 ms EXTERNAL EKG QTC CALCULATION 449 ms EXTERNAL EKG P [place] 64 degrees EXTERNAL EKG R [place] 12 degrees EXTERNAL EKG T [place] 107 degrees EXTERNAL EKG 02/18/2025 6:33 PM CDT Impressions EXTERNAL EKG - 02/19/2025 4:57 PM CDT Normal sinus rhythm Possible Left atrial enlargement Low voltage QRS Possible Anterior infarct , age undetermined Abnormal ECG No previous ECGs available Confirmed by DAWN SHRESTHA ([id number]) on 02/19/2025 4:57:28 PM Narrative Procedure Note Dawn Shrestha MD - 02/19/2025 IMPRESSION: Normal sinus rhythm Possible Left atrial enlargement Low voltage QRS Possible Anterior infarct , age undetermined Abnormal ECG No previous ECGs available Confirmed by DAWN SHRESTHA ([id number]) on 02/19/2025 4:57:28 PM us Dereck Carrington MD IMG ECG ORDERABLES Final Result Performing Organization Address City/[facility]/ZIP Co de Phone Number EXTERNAL EKG * EKG SCAN (02/18/2025 12:00 AM CDT) 02/18/2025 us Provider Scan IMG ECG ORDERABLES Final Result RESULTING AGENCY * ARLET SCREENING BILATERAL DIGITAL W CAD W CHRISTA (03/20/2021 11:40 AM CDT) Anatomical Region Laterality Modality breast Bilateral Mammography 03/20/2021 10:5 0 AM CDT Narrative 03/21/2021 7:15 AM CDT - ARLET SCREENING BILATERAL DIGITAL W CAD W CHRISTA BILATERAL DIGITAL SCREENING MAMMOGRAM 3D/2D WITH CAD WITH MEDIOLATERAL OBLIQUE CRANIOCAUDAL: 03/20/2021 The study was acquired using digital technology and interpreted from soft copy. Current study was also evaluated with ICAD version 7.2. 2D digital mammographic views, as well as 3D digital tomosynthesis were performed in the CC and MLO projections. CLINICAL: New baseline. Patient has no complaints. No personal history of cancer. No family history of breast cancer. COMPARISONS: No prior exams were available for comparison. BREAST TISSUE:There are scattered fibroglandular densities in both breasts. FINDINGS: No significant masses, calcifications, or other findings are seen in either breast. IMPRESSION: BI-RAD 1 NEGATIVE There is no mammographic evidence of malignancy. A 1 year screening mammogram is recommended. The patient has been or will be contacted. The patient will be entered into a reminder system with a target due date of 1 year for her next screening exam. Electronically signed by: Mili edward/penrad:03/20/2021 16:07:07 Blow Torch Burner: Alissa ELLSWORTH (R)(M), [facility] letter sent: Normal Exam Reading location: [place] BI-RADS: 1 Negative Procedure Note Mili Nguyen MD - 03/21/2021 - ARLET SCREENING BILATERAL DIGITAL W CAD W CHRISTA BILATERAL DIGITAL SCREENING MAMMOGRAM 3D/2D WITH CAD WITH MEDIOLATERAL OBLIQUE CRANIOCAUDAL: 03/20/2021 The study was acquired using digital technology and interpreted from soft copy. Current study was also evaluated with KinnekD version 7.2. 2D digital mammographic views, as well as 3D digital tomosynthesis were performed in the CC and MLO projections. CLINICAL: New baseline. Patient has no complaints. No personal history of cancer. No family history of breast cancer. COMPARISONS: No prior exams were available for comparison. BREAST TISSUE:There are scattered fibroglandular densities in both breasts. FINDINGS: No significant masses, calcifications, or other findings are seen in either breast. IMPRESSION: BI-RAD 1 NEGATIVE There is no mammographic evidence of malignancy. A 1 year screening mammogram is recommended. The patient has been or will be contacted. The patient will be entered into a reminder system with a target due date of 1 year for her next screening exam. Electronically signed by: Mili edward/penrad:03/20/2021 16:07:07 Blow Torch Burner: Alissa DAVIDSON)(M), [facility] letter sent: Normal Exam Reading location: [place] BI-RADS: 1 Negative us Matilda Vital MD IMG MAMMO ORDERABLES Fin al Result from Last 3 Months or Most Recently Relevant to Health Maintenance Insurance MEDICAID [place] Care Teams Retail Center Receptionist Relationship Specialty Start Date End Date Wisdom, CASIE Levi, REACTOR KETTLE OPERATOR [address] [place] [address] PCP - General Family Medicine 04/26/19
--- OUTSIDE RECORDS SUMMARY | 2025-04-20 17:30 | XMS_ITS | Clinical Summary ---
Author Organization [facility] Address [address] [place] [address] Care Team Providers Care Heat Treat Operator Name Role Phone None, Physician Primary Care Provider Unavailabl e Source Comments [facility],non-owned Affiliates and Associated Physician Practices is amultiple site organization consisting of ambulatory clinics and hospital sitesin [place], [place], [place] and [place]. This disclosure is being madepursuant to the Care Everywhere program and may not contain all information available regarding this patient. Last updated 18.[facility] Active Problems Problem Noted Date Diagnosed Date Fatty liver 05/15/2024 Overview (05/15/2024): 05/15/24 Fibroscan CAP 291, LSM 32.3 kPa Social History Tobacco Use Types Packs/Day Years Used Date Smoking Tobacco: Never Assessed Comments Unknown Sex and Gender Information Value Date Recorded Sex Assigned at Not on file Legal Sex Female 7:28 AM APPLIED BIOLOGY PROFESSOR Gender Identity Not on file Sexual Orientation Not on file Plan of Treatment Health Maintenance Due Date Last Done Comments COLOGUARD (AGES 45-75) - COLON CA SCREENING 1969 COLON MONITORING 1969 COLONOSCOPY - COLON CA SCREENING 1969 CT COLONOGRAPHY - COLON CA SCREENING 1969 Colorectal Cancer Screening 1969 FIT - COLON CA SCREENING 1969 FLEX SIG - COLON CA SCREENING 1969 LIPID TESTING 1969 PAP SMEAR 1969 HIV SCREENING 01/28/1984 HEPATITIS C SCREENING 01/23/1987 DTAP/TDAP/TD VACCINES (1 - Tdap) 01/28/1988 HEPATITIS B VACCINE (1 of 3 - 19+ 3-dose series) 01/28/1988 PNEUMOCOCCAL VACCINE 50+ (1 of 1 - PCV) 2019 ZOSTER VACCINE (1 of 2) 2019 MAMMOGRAM 03/20/2023 03/20/2021, 03/20/2021 COVID-19 VACCINE (2 - season) 2024 02/26/2021 DEPRESSION SCREENING 11/21/2024 INFLUENZA VACCINE (Season Ended) 2025 10/27/2021, 09/04/2021, 07/27/2017, Additional history exists HIB VACCINE Aged Out No longer eligi ble based on patient's age to complete this topic HPV VACCINE Aged Out No longer eligi ble based on patient's age to complete this topic MENINGOCOCCAL (Group B) VACCINE SHARED DECISION-MAKING Aged Out No longer eligible based on patient's age to complete this topic MENINGOCOCCAL GROUPS A/C/Y/W VACCINE Aged Out No longer eligible based on patient's age to complete this topic Insurance Care Teams Heat Treat Operator Relationship Specialty Start Date End Date None, Physician [address] [place] [address] PCP - General 05/15/24
--- OUTSIDE RECORDS SUMMARY | 2025-04-20 17:30 | XMS_ITS | Clinical Summary ---
Author Organization [facility] [address] [facility] [place] Address [address] [place] [address] Care Team Providers Care Svp Business Development Name Role Phone Amita Wisdom NP Primary Care Provider Allergies Active Allergy Reactions Criticality Noted Date [...] Active Active Problems No known active problems Encounters Date Type Department Care Team Description 03/29/2025 7:59 AM CDT - 03/29/2025 11:59 PM CDT Hospital Encounter [facility] [address] [place] [address] Anomalous aortic origin of coronary artery Discharge Disposition: Discharge to home or self care from Last 3 Months Immunizations Immunization Administration Dates Next Due Influenza, Unspecified 10/27/2021 Surgical History Surgery Date Site/Laterality Comments SECTION HERNIA REPAIR EAR SURGERY Medical History Medical History Date Comments Diabetes mellitus (HCC) Hypertension Hyperlipidemia GERD (gastroesophageal reflux disease) COPD (chronic obstructive pulmonary disease) (HC C) Social History Tobacco Use Types Packs/Day Years Used Date Smoking Tobacco: Every Day Cigarettes 0.8 30 Smokeless Tobacco: Never Comments No Sex and Gender Information Value Date Recorded Sex Assigned at Not on file Legal Sex Female 7:05 PM JOY OPERATOR HELPER Gender Identity Female 04/20/2023 1:07 PM CDT Sexual Orientation Not on file Obstetrics History Last Filed Vital Signs Vital Sign Reading Time Taken Comments Blood Pressure 130/75 03/29/2025 9:09 AM CDT Pulse 70 03/29/2025 9:09 AM CDT Temperature 36.8 C (98.2 F) 12/10/2021 9:30 AM JOY OPERATOR HELPER Respiratory Rate 24 12/10/2021 9:30 AM JOY OPERATOR HELPER Oxygen Saturation 96% 12/10/2021 9:30 AM JOY OPERATOR HELPER Inhaled Oxygen Concentration - - Weight 124.7 kg (275 lb) 12/10/2021 9:30 AM JOY OPERATOR HELPER Height 154.9 cm (5' 1) 12/10/2021 9:30 AM JOY OPERATOR HELPER Body Mass Index 51.96 12/10/2021 9:30 AM JOY OPERATOR HELPER Plan of Treatment Health Maintenance Due Date Last Done Comments Cervical Cancer Screening 1969 Colon Cancer Screening-Colonoscopy 1969 Depression Screening 1969 Hepatitis C Screening 1969 DTaP/Tdap/Td Vaccine (1 - Tdap) 01/28/1980 Hepatitis B Screening 1987 Regular Well Visit/Exam 18-64 1987 Pneumococcal vaccine <65 (2 of 2 - PCV) 07/27/2018 07/27/2017 Zoster Vaccine (1 of 2) 2019 Breast Cancer Screening-Mammogram 03/20/2022 021, 03/20/2021 Covid-19 Vaccine (2 - 2023-2 5 season) 2024 02/26/2021 Influenza Vaccine (Season Ended) 2025 10/27/2021, 09/04/2021, 07/27/2017, Additional history exists Procedures Procedure Name Priority Date/Time Associated Diagnosis [...] Final Result from Last 3 Months Insurance [facility] Care Teams Svp Business Development Relationship Specialty Start Date End Date Amita Wisdom NP [address] [place] [id number] PCP - General Nurse Practitioner 07/31/21
--- OUTSIDE RECORDS SUMMARY | 2025-04-20 17:30 | XMS_ITS | CONTINUITY OF CARE DOCUMENT ---
Author Name marissa ann Address Unknown Organization [facility] Address [address] [place] [address] [address] [place] [address] Phone [phone] Care Team Providers Care Security Incident Response Specialist Name Role Phone Melo DERAS, Moy Unavailable JOHNSON HVAC PROJECT ENGINEER-C, ELISHA Unavailable JOHNSON HVAC PROJECT ENGINEER-C, ELISHA Unavailable PROBLEMS Condition Status Date Provider Notes Cardiology examination active Moy Alejo MD Chest pain-type to be determined active Ruperto Alejo MD Palpitations active Moy Alejo MD SOB active Moy Alejo MD Diabetes, Type 2 active Moy Alejo MD Hyperlipidemia active Moy Alejo MD HTN essential active Moy Alejo MD Tobacco abuse active Moy Alejo MD 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 Moy Alejo MD Snoring active Moy Alejo MD CHF active Moy Alejo MD Pre op cardiovascular exam active Moy liu MD ENCOUNTERS Date Type Provider Location Encounter Diag nosis - In-person encounter Office Visit Moy Alejo MD [place] [facility] Pre op cardiovascular exam - In-person encounter Office Visit Moy Alejo MD [facility] CHF - In-person encounter Office Visit [facility] - In-person encounter Office Visit Moy Alejo MD [facility] Cardiology examinationChest pain-type to be determinedPalpitationsSOBDiab etes, Type 2HyperlipidemiaHTN essentialTobacco abuseCoronary artery anomaly-left from right cuspHypertensionSnoring VITAL SIGNS Date Observation Value Provider Body Mass Index (Ratio) 43.64 kg/m2 Lucy vanesa Bonareri HVAC PROJECT ENGINEER blood pressure, diastolic 88 mm[Hg] Li nkLogic blood pressure, systolic 120 mm[Hg] Promise kLogic pulse rate 79 /min Dodie Miah respiratory rate E&M 16 /min Dodie Miah oxygen saturation, oximetry 96 % Dodie Miah blood pressure, diastolic 88 mm[Hg] Va lerie Miah blood pressure, systolic 120 mm[Hg] Catie clifford Miah weight E&M 231 [lb_av] Dodie Miah blood pressure, cuff size regular Karen lerie Miah height E&M 61 [in_i] Dodie Miah Body Mass Index (Ratio) 55.36 kg/m2 Anuel Alejo MD blood pressure, cuff size regular Nayan Rebollarby blood pressure, diastolic 90 mm[Hg] Nayan isty Donavan blood pressure, systolic 144 mm[Hg] Christine willie Slater respiratory rate E&M 18 /min Glory Rebollarby oxygen saturation, oximetry 97 % Glory Slater pulse rate 95 /min Glory Donavan weight E&M 293 [lb_av] Glory Slater height E&M 61 [in_i] Glory Slater Body Mass Index (Ratio) 54.41 kg/m2 Anuel Alejo MD blood pressure, diastolic 90 mm[Hg] Josephine lin Block blood pressure, systolic 138 mm[Hg] Tonja wylie Block oxygen saturation, oximetry 98 % Gail Block respiratory rate E&M 16 /min Cheyenne winters Block pulse rate 99 /min Gail Block weight E&M 288 [lb_av] Gail Block height E&M 61 [in_i] [facility] Body Mass Index (Ratio) 53.84 kg/m2 Anuel Alejo MD blood pressure, resting Yes Francisco tity Chelsy oxygen saturation, oximetry 98 % Chastity Chelsy blood pressure, diastolic 94 mm[Hg] Ch astity Chelsy blood pressure, systolic 142 mm[Hg] Katie stity Chelsy pulse rate 102 /min Chastity Chelsy respiratory rate E&M 16 /min Chastit y Chelsy height E&M 61 [in_i] Chastity Chelsy weight E&M 285 [lb_av] Chastity Chelsy ALLERGIES Allergy Name Onset Date Reaction Criticality Status AMOXICILLIN High Criticality active RESULTS Date Observation Value Provider Reference Range Interpretation Location ferritin, serum 14 ng/mL LinkLogic 15-150 Low pro brain natriuretic peptide 135 pg/mL Link[facility] 0-249 basophil count, absolute 0.0 x10E3/uL Link[facility]ic 0.0-0.2 Eosinophil Absolute Count 0.1 X10E3/UL Link[facility] 0.0-0.4 monocyte count, blood, automated 0.3 X10E3/UL [facility] 0.1-0.9 lymphocyte count, blood, automated 1.4 X10E3/UL [facility] 0.7-3.1 Absolute Neutrophils 3.1 X10E3/UL [facility] 1.4-7.0 basophils as percent of blood leukocytes 0 % LinkLogic Not Estab. eosinophils as percent of blood leukocytes 1 % Link[facility]ic Not Estab. monocytes as percent of blood leukocytes 7 % Link[facility]ic Not Estab. lymphocytes as percent of blood leukocytes 28 % Link[facility]ic Not Estab. neutrophils as percent of blood leukocytes 64 % [facility] Not Estab. platelet count 125 X10E3/UL [facility] 150-450 Low red blood cell distribution width 16.5 % [facility] 12.3-15.4 High mean corpuscular hemoglobin concentration, RBC 30.6 G/DL [facility] 31.5-35.7 Low mean corpuscular hemoglobin, RBC 25.0 pg [facility] 26.6-33.0 Low mean corpuscular volume, RBC 82 fL [facility] 79-97 hematocrit, blood 37.2 % [facility] 34.0-46.6 hemoglobin, blood 11.4 g/dL [facility] 11.1-15.9 erythrocyte (RBC) count 4.56 X10E6/UL Link[facility] 3.77-5.28 leukocyte count, blood 5.0 X10E3/UL LinkLogic 3.4-10.8 iron saturation percent, serum 7 % [facility] 15-55 Critical low iron, serum 32 ug/dL [facility] 27-159 iron binding capacity, unsaturated 459 ug/dL [facility] 131-425 High iron binding capacity, total 491 ug/dL [facility] 250-450 High alanine aminotransferase (SGPT), serum 22 1/L [facility] 0-32 aspartate aminotransferase (SGOT), serum 37 1/L [facility] 0-40 alkaline phosphatase, serum 119 1/L [facility] 39-117 High bilirubin, serum, total 0.4 mg/dL [facility] 0.0-1.2 albumin/globulin ratio, serum 1.4 [facility] 1.2-2.2 globulin, serum 2.8 Link[facility] 1.5-4.5 albumin, serum 3.8 g/dL [facility] 3.5-5.5 protein, total, serum 6.6 g/dL [facility] 6.0-8.5 calcium, serum 9.1 mg/dL [facility] 8.7-10.2 carbon dioxide, venous blood 20 mmol/L Link[facility] 20-29 chloride, serum 100 mmol/L [facility] 96-106 potassium, serum 4.7 mmol/L Link[facility]ic 3.5-5.2 sodium, serum 139 mmol/L Link[facility] 029-786 8853/09 /19 urea nitrogen/creatinine ratio, serum 15 Link[facility]ic 9-23 eGFR if 126 mL/min/{1.73_ m2} Link[facility]ic >59 eGFR if not 110 mL/min/{1.73_ m2} Link[facility]ic >59 creatinine, serum 0.55 mg/dL [facility] 0.57-1.00 Low urea nitrogen, blood 8 mg/dL Link[facility] 6-24 blood glucose, random 288 mg/dL LinkLog 65-99 High hemoglobin A1C, blood, as % of total hemoglobin 10.2 % LinkLog 4.8-5.6 High prothrombin time (patient) 10.3 s LinkLog 9.0-11.5 Normal international normalized ratio (INR) 1.0 LinkLog Normal basophils as percent of blood leukocytes 0.9 % Link[facility] Normal eosinophils as percent of blood leukocytes 1.5 % LinkLogic Normal monocyte count, blood 8.1 % Link[facility] Normal lymphocyte count, blood 30.3 % Link[facility]ic Normal neutrophils as percent of blood leukocytes 59.2 % Link[facility] Normal basophils, absolute, manual 42 cells/mcL [facility] 0-200 Normal eosinophils, absolute, manual 71 cells/mcL [facility] 15-500 Normal monocytes, absolute, manual 381 cells/mcL [facility] 200-950 Normal lymphocytes, absolute 1424 CELLS/UL Link[facility] 850-3900 Normal Absolute Neutrophil count 2782 cells/mcL [facility] 5899-2585 Normal mean platelet volume 12.8 fL [facility] 7.5-12.5 High platelet count 119 THOUSAND/UL LinkLogic 140-400 Low red blood cell distribution width 15.0 % Link[facility]ic 11.0-15.0 Normal mean corpuscular hemoglobin concentration, RBC 31.2 G/DL [facility] 32.0-36.0 Low mean corpuscular hemoglobin, RBC 26.3 pg Link[facility]ic 27.0-33.0 Low mean corpuscular volume, RBC 84.4 fL [facility] 80.0-100.0 Normal hematocrit, blood 39.1 % [facility] 35.0-45.0 Normal hemoglobin electrophoresis, blood 12.2 Link[facility]ic 11.7-15.5 Normal erythrocyte (RBC) count 4.63 MILLION/UL Link[facility] 3.80-5.10 Normal leukocyte (white blood cells) count, blood 4.7 THOUSAND/UL Link[facility]ic 3.8-10.8 Normal calcium, serum 9.0 mg/dL [facility] 8.6-10.4 Normal carbon dioxide, venous blood 27 mmol/L Link[facility] 20-32 Normal chloride, serum 102 mmol/L Link[facility] 98-110 Normal potassium, serum 4.5 mmol/L LinkLogic 3.5-5.3 Normal sodium, serum 139 mmol/L Link[facility] 135-146 Normal urea nitrogen/creatinine ratio, serum NOT APPLICABLE (calc) LinkLogic 6-22 Estimated Glomerular Filtration Rate (calc) 126 mL/min/{1.73_ m2} LinkLogic > OR = 60 Normal creatinine, serum 0.56 mg/dL Link[facility]ic 0.50-1.05 Normal urea nitrogen, blood 9 mg/dL LinkLogic 7-25 Normal blood glucose, random 214 mg/dL LinkLogic 65-99 High cholesterol, non-HDL, total 102 MG/DL (CALC) LinkLogic <130 Normal cholesterol/HDL ratio, serum, percent 3.4 (calc) LinkLogic <5.0 Normal LDL cholesterol, serum 82 MG/DL (CALC) LinkLogic Normal triglyceride, serum, fasting 104 mg/dL LinkLogic <150 Normal HDL cholesterol, serum 43 mg/dL LinkLogic >50 Low cholesterol, serum 145 mg/dL LinkLogic <200 Normal HISTORY OF MEDICATION USE Medication Status Instructions Dates Provider Indications Com ments phentermine 30 mg capsule active TAKE 1 CAPSULE BY MOUTH EVERY DAY Dodie Miah Trulicity 0.75 mg/0.5 mL pen injector active INJECT THE CONTENTS OF 1 PEN UNDER THE SKIN ONCE WEEKLY Dodie Miah omeprazole 20 mg capsule,delayed release(DR/EC) active one pill once daily Dodie Miah albuterol sulfate 2.5 mg/3 mL (0.083 %) solution for nebulization active Dodie Miah cetirizine 10 mg tablet active TAKE 1 TABLET BY MOUTH EVERY DAY Dodie Miah fluticasone propionate 50 mcg/actuation spray,suspension active as needed Dodie Miah Jardiance 10 mg tablet active TAKE 1 TABLET BY MOUTH EVERY DAY Dodie Miah losartan 25 mg tablet active TAKE 1 TABLET BY MOUTH EVERY DAY Dodie Miah montelukast 10 mg tablet active TAKE 1 TABLET BY MOUTH ONCE DAILY Dodie Miah oxybutynin chloride 5 mg tablet active one pill once daily Dodie Miah Fish Oil 300-1,000 mg capsule active one pill once daily Dodie Miah calcium-magnesiu m-zinc 333-133-5 mg tablet active one pill once daily Dodie Miah cephalexin 500 mg capsule completed 1 capsule by mouth three times a day - Dodie Miah furosemide 20 mg tablet completed 1 by mouth once a day - Dodie Miah Prilosec OTC 20 mg tablet,delayed release (DR/EC) active 1 capsule by mouth once a day Dodie Miah glipizide 5 mg tablet completed Take 1 tablet by mouth twice a day - Dodie Miah #60, 30 days supply, Prescribed by ELISHA JOHNSON, Filled 02/12/2019 simvastatin 40 mg tablet active Take 1 tablet by mouth every night Dodie Miah #30, 30 days supply, Prescribed by ELISHA JOHNSON, Filled 02/12/2019 metoprolol succinate 50 mg tablet extended release 24 hr active Take 1 tablet by mouth once a day Dodie Miah #30, 30 days supply, Prescribed by ELISHA JOHNSON, Filled 03/14/2019 metformin 1,000 mg tablet active Take 1 tablet by mouth twice a day Dodie Miah #60, 30 days supply, Prescribed by ELISHA JOHNSON, Filled 03/14/2019 lisinopril 20 mg tablet completed Take 1 tablet by mouth once a day - Dodie Miah #30, 30 days supply, Prescribed by ELISHA JOHNSON, Filled 03/14/2019 SOCIAL HISTORY Date Observation Value Provider personal history of marijuana use no Corby Coley NP drug use no Corby Coley NP alcohol use no Corby Coley NP passive cigarette sm neetu exposure yes Corby Coley NP smoking/tobacco cess ation, patient education and counseling yes Corby Coley NP number of years as a smoker 30 a Corby Coley NP smoking history, tot al pack/day 0.5 Corby Coley NP cigarette use yes Corby Coley NP smoking status Current every day smoker V shantel Coley NP social history E&M Marital Statu s: Single Yan betts: 2 O ccupation: Disability Smoking History: P atient currently smokes every day. P atient has been counseled to quit. Moy Alejo MD social history reviewed E&M revi ewed - no changes required Moy Alejo MD passive cigarette sm neetu exposure yes Glory Slater number of years as a smoker 30 a Glory Slater smoking history, tot al pack/day 3/4 Glory Donavan cigarette use yes Glory Slater smoking status Current every day smoker Johanny Rebollarby social history E&M Marital Statu s: Single Yan betts: 2 O ccupation: Disability Smoking History: P atient currently smokes every day. P atient has been counseled to quit. Moy Alejo MD social history reviewed E&M revi ewed - no changes required Moy Alejo MD alcohol use no Gail Block smoking/tobacco cess ation, patient education and counseling yes Gail Block passive cigarette sm neetu exposure yes Gail Block number of years as a smoker 30 a Gail Block smoking history, tot al pack/day 01/22 Gail Block cigarette use yes Gail Block smoking status Current every day smoker B rittany Block alcohol use no Moy Moses D passive cigarette sm neetu exposure yes Moy Alejo MD smoking/tobacco cess ation, patient education and counseling yes Moy Alejo MD smoking history, tot al pack/day 01/22 Moy Alejo MD social history E&M Marital Statu s: Single Yan betts: 2 O ccupation: Disability Smoking History: P atient currently smokes every day. Moy Alejo MD number of years as a smoker 30 a [facility] cigarette use yes Julisa Valentino smoking status Current every day smoker C adam Reevesue FAMILY HISTORY Family Member Condition First Degree Blood Relative No Known Fam david History INSURANCE PROVIDERS Payer name Policy type / Coverage type Marjorie solano alliance party ID DEEPALI MEDICAID Medicaid [id number] ADVANCE DIRECTIVES Name Date DISCUSSED - NO DECISION MADE TREATMENT PLAN Date Name Performer Cardiology: C linically appears euvolemic Her updated medication list for this problem includes: Metoprolol Succinate 50 Mg Tablet Extended Release 24 Hr (Metoprolol succinate) ..... Take 1 tablet by mouth once a day Losartan 25 Mg Tablet (Losartan) ..... Take 1 tablet by mouth every day Corby Coley NP Cardiology: B P today: 120/88 P rior BP: 144/90 (08/08/2019) Her updated medication list for this problem includes: Metoprolol Succinate 50 Mg Tablet Extended Release 24 Hr (Metoprolol succinate) ..... Take 1 tablet by mouth once a day Losartan 25 Mg Tablet (Losartan) ..... Take 1 tablet by mouth every day Corby Coley NP Cardiology: H er updated medication list for this problem includes: Simvastatin 40 Mg Tablet (Simvastatin) ..... Take 1 tablet by mouth every night Corby Coley NP Cardiology: M anaged per PCP H er updated medication list for this problem includes: Metformin 1,000 Mg Tablet (Metformin) ..... Take 1 tablet by mouth twice a day Trulicity 0.75 Mg/0.5 Ml Pen Injector (Dulaglutide) ..... Inject the contents of 1 pen under the skin once weekly Jardiance 10 Mg Tablet (Empagliflozin) ..... Take 1 tablet by mouth every day Losartan 25 Mg Tablet (Losartan) ..... Take 1 tablet by mouth every day Corby Coley NP Cardiology: r eports racing heart associated with jaw pain and chest tightness that wakes her up from her sleep. W ill get an echo and nuclear stress test. Corby Coley NP Cardiology: c omplete cessation encouraged Corby Coley NP Cardiology: W ill get an echo and nuclear stress test prior to clearance. Patient reports that she has trouble waking up from anesthesia. Corby Coley HVAC PROJECT ENGINEER Cardiology Moy Alejo MD Cardiology Moy Alejo MD Cardiology Moy Alejo MD Cardiology Moy Alejo MD Cardiology Moy Alejo MD Cardiology Moy Alejo MD Cardiology Moy Alejo MD Cardiology Moy Alejo MD Cardiology Moy Alejo MD Cardiology Moy Alejo MD Cardiology Moy Alejo MD Cardiology Moy Alejo MD Cardiology Moy Alejo MD Cardiology Moy Alejo MD Cardiology Moy Alejo MD Cardiology Moy Alejo MD Cardiology Moy Alejo MD Cardiology Moy Alejo MD Date Name Stress Regadenoson Complete Echo HEMOGLOBIN A1c IRON AND TOTAL IRON BINDING CAPACITY FERRITIN CBC (INCLUDES DIFF/P LT) PROBNP, N TERMINAL COMPREHENSIVE METABO LIC PANEL, W/EGFR PROTHROMBIN TIME WIT H INR LIPID PANEL CBC (INCLUDES DIFF/P LT) BASIC METABOLIC PANE L W/EGFR Cardiac Cath - Left - GC Mobile Cardiac Tele Stress Exercise Card iolite Complete Echo Sleep Study Home HISTORY OF PROCEDURES Procedure Date Procedure Name Provider Procedure Notes S tatus EKG Moy Alejo MD complete d Stress EKG Ysabel Kahn MD complet ed Cardiolite, 2 units Ysabel Kahn MD completed SPECT Images Ysabel Kahn MD compl eted MARJORIE Alejo MD complete d
--- OUTSIDE RECORDS SUMMARY | 2025-04-20 17:32 | XMS_ITS | CONTINUITY OF CARE DOCUMENT ---
Author Name marissa ann Address Unknown Organization [facility] Address [address] [place] [address] [address] [place] [address] Phone [phone] Care Team Providers Care Tribal Council Member Name Role Phone Melo DERAS, Moy Unavailable JOHNSON INGOT STRIPPER-C, ELISHA Unavailable JOHNSON INGOT STRIPPER-C, ELISHA Unavailable PROBLEMS Condition Status Date Provider [...] In-person encounter Office Visit Moy Alejo MD [place] [facility] Pre op cardiovascular exam - In-person encounter Office Visit Moy Alejo MD [facility] CHF - In-person encounter Office Visit [facility] - In-person encounter Office Visit Moy Alejo MD [facility] Cardiology examinationChest pain-type to be determinedPalpitationsSOBDiab etes, Type 2HyperlipidemiaHTN essentialTobacco abuseCoronary artery anomaly-left from right cuspHypertensionSnoring VITAL SIGNS Date Observation Value Provider Body Mass Index (Ratio) 43.64 kg/m2 Lucy vanesa Bonareri INGOT STRIPPER blood pressure, diastolic 88 mm[Hg] Li nkLogic [...] blood pressure, systolic 144 mm[Hg] Christine willie Alpine respiratory rate E&M 18 /min Glory Rebollarby oxygen saturation, oximetry 97 % Glory Alpine pulse rate 95 /min Glory Donavan weight E&M 293 [lb_av] Glory Alpine height E&M 61 [in_i] Glory Alpine Body Mass Index (Ratio) 54.41 kg/m2 Anuel Alejo MD blood pressure, diastolic 90 mm[Hg] Josephine lin Block blood pressure, systolic 138 mm[Hg] Tonja wylie Block oxygen saturation, oximetry 98 % Gail Block respiratory rate E&M 16 /min Cheyenne winters Block pulse rate 99 /min Gail Block weight E&M 288 [lb_av] Gail Block height E&M 61 [in_i] [facility] Body Mass Index (Ratio) 53.84 kg/m2 Anuel [...] LinkLogic 3.5-5.2 sodium, serum 139 mmol/L [facility] 359-429 2719/09 /19 urea nitrogen/creatinine ratio, serum 15 LinkLogic [...] Normal Absolute Neutrophil count 2782 cells/mcL Link[facility] 1566-2012 Normal mean platelet volume 12.8 fL LinkLogic [...] passive cigarette sm neetu exposure yes Glory Alpine number of years as a smoker 30 a Golry Alpine smoking history, tot al pack/day 3/4 Glory Donavan cigarette use yes Glory Alpine smoking status Current every day smoker Johanny [...] of years as a smoker 30 a [facility] cigarette use yes Julisa Valentino smoking status Current every day smoker C adam Reevesue FAMILY HISTORY Family Member Condition First Degree Blood Relative No Known Fam david History INSURANCE PROVIDERS Payer name Policy type / Coverage type Marjorie solano republican ID DEEPALI MEDICAID Medicaid [id number] ADVANCE DIRECTIVES Name Date DISCUSSED - NO [...] trouble waking up from anesthesia. Corby Coley INGOT STRIPPER Cardiology Moy Alejo MD Cardiology Moy Alejo [...]
[2025-04-20 17:34] VITALS: BP 128/82; PULSE 95; RESP 20; TEMP 36.2; O2SAT 97
--- NOTE | 2025-04-20 18:08 | ED_ITS ---
HPI - Back Pain/Injury General Chief Complaint: Back Pain/Injury Stated Complaint: fall, neck/back pain Time Seen by Provider: 04/20/25 17:57 Source: patient, RN notes reviewed and old records reviewed Mode of arrival: ambulatory Limitations: no limitations History of Present Illness HPI Narrative: 55 year old female presents to express care with complaints of pain to her upper back and to her right lateral rib region after falling out of a swinng about 20 minutes ago and hit her upper back on a tree. Patient reports pain to her right upper back posterior mid right shoulder area and to lateral right upper back area since fall. Patient reports that she has increased pain with deep breathing, denies any acute dyspnea.No redness or bruising noted to right upper back region, ice applied for comfort. MD elicited complaint: back pain (upper right) and fall (out of a swing and hit tree) Onset (ago): hour(s) (20 minutes prior to arrival) Severity: moderate Quality: aching, throbbing and other Location: thoracic spine (right side upper) Work related injury: No Related Data Home Medications ?Medication ?Instructions ?Recorded ?Confirmed ?Last Taken ?Type metoprolol succinate 50 mg 50 mg PO DAILY 10/24/19 10/08/24 Unknown History tablet,extended release 24 hr simvastatin 40 mg tablet 40 mg PO DAILY 10/24/19 10/08/24 Unknown History cetirizine 10 mg tablet 10 mg PO DAILY PRN Allergy Symptoms 12/21/21 10/08/24 Unknown History empagliflozin 10 mg tablet 10 mg PO DAILY 12/21/21 10/08/24 Unknown History (Jardiance) montelukast 10 mg tablet 10 mg PO DIRECTED 12/04/22 10/08/24 Unknown History dulaglutide 4.5 mg/0.5 mL 4.5 mg subcut WEEKLY 03/27/24 10/08/24 Unknown History subcutaneous pen injector (Trulicity) losartan 25 mg tablet 25 mg PO DAILY 03/27/24 10/08/24 Unknown History phentermine 30 mg capsule 30 mg PO DAILY 03/27/24 10/08/24 Unknown History oxybutynin chloride 2.5 mg tablet 2.5 mg PO DAILY 06/22/24 10/08/24 Unknown History Allergies Allergy/AdvReac Type Severity Reaction Status Date / Time moxifloxacin Allergy Unknown CAUSES Verified 12/05/24 13:46 PROBLEMS WITH HEART Penicillins Allergy Unknown BLISTERS Verified 12/05/24 13:46 ALL OVER BODY. Review of Systems Review of Systems: CONSTITUTIONAL: Denies fever, chills, or sweats. EYES: Denies visual changes, redness, or discharge. ENT: Denies rhinorrhea, congestion, sore throat, or otalgia. CARDIOVASCULAR: Denies chest pain, palpitations, or edema. RESPIRATORY: Denies cough or dyspnea reports that has pain with deep breathing . GASTROINTESTINAL: Denies abdominal pain, nausea, vomiting, or diarrhea. GENITOURINARY: Denies dysuria or hematuria. SKIN: Denies rash or itching. MUSCULOSKELETAL: Denies back pain, joint pain, or myalgia.alejandro to right upper and lateral thoracic back NEUROLOGIC: Denies headache, numbness, or weakness. PSYCHIATRIC: Reports anxiety or depression All systems reviewed & are unremarkable except as noted in HPI and below PMFSH Past Medical History Medical History Colon cancer screening Barretts esophagus Elevated liver enzymes Change in voice Cirrhosis Tobacco use Obese History of myocarditis Hepatosplenomegaly GERD (gastroesophageal reflux disease) Hypertension Hyperlipidemia Diabetes COPD (chronic obstructive pulmonary disease) Surgical History Surgical History Previous section Family History Family History Father Acute myocardial infarction Social History Social History Smoking packs per day: 0.5 Smoking cigarettes per day: 10.0 Years smoked: 30 Smoking pack-years: 15.00 Smoking status: Current every day smoker Tobacco type: cigarettes Alcohol intake: current Alcohol use details: social Substance use: never Substance use type: does not use Living arrangements: alone Gender identity (if verbalized by the patient): Female Sexual Orientation (if Verbalized by the Patient): Straight or Heterosexual Spiritual care concerns: No Comments At time of signature, agree with nursing past medical, surgical, social and family history. There is no relevant family history pertinent to the presenting complaint Exam Narrative: GENERAL: Well-appearing, well-nourished,obese and in no acute distress. HEAD: Normocephalic, atraumatic. EYES: PERRLA and EOMI. ENT: Nares clear, no rhinorrhea or epistaxis. Mucous membranes moist.TM's normal throat pink with no lesions. NECK: Supple.no lymphadenopathy CHEST: Clear to auscultation. No respiratory distress. reports some pain with deep breathing since fall to upper right side of back SAO2 97% on room air HEART: Regular rate and rhythm. No murmur heard. Normal peripheral pulses. ABDOMEN: Soft, nontender, nondistended, normal active bowel sounds. EXTREMITIES: Normal range of motion. No edema.trace pedal edema SKIN: Warm, dry, no rash. NEURO: No focal deficits. Alert and oriented x3. Course Course Emergency Course: Patient is aware of diagnosis, understands and agrees to treatment plan.? Anticipatory guidance given.? Patient agrees to follow-up as directed and is aware of reasons to seek care at the emergency department. Portions of this record may have been created with voice recognition software Level of Care: Express Care Visit Vital Signs Vital signs: Vital Signs Temperature 36.2 C L 04/20/25 17:34 Pulse Rate 95 04/20/25 17:34 Respiratory Rate 20 04/20/25 17:34 Blood Pressure 128/82 04/20/25 17:34 Pulse Oximetry 97 04/20/25 17:34 Oxygen Delivery Room Air 04/20/25 17:34 Temperature 36.2 C L 04/20/25 17:34 Pulse Rate 95 04/20/25 17:34 Respiratory Rate 20 04/20/25 17:34 Blood Pressure 128/82 04/20/25 17:34 Pulse Oximetry 97 04/20/25 17:34 Oxygen Delivery Room Air 04/20/25 17:34 Reviewed MDM - Back Pain/Injury Differential Diagnosis Differential diagnosis: Likely thoracic back pain and other (rib fracture right side, contusion to thoracic back) Medical Records Attestation: I reviewed the patient's medical records. Imaging Data Attestation: I personally reviewed and interpreted this imaging study as follows: My impression: fracture of 3rd right and 8th rib on right side Radiologist's impression: [facility] [address] [place] [address] XRay Report Signed with Denisha Patient: Candida Bales : 1970 MR#: [id number] Age: 55 Acct:[id number] Loc: [facility] ADM Date: 04/20/25Attending Dr: Ordering Physician: Katya Waldrop APRN Date of Service: 04/20/25 Procedure(s): XR ribs RT w PA CXR Accession Number(s): [id number] cc: JOHNSON,AMITA MOJICA; Katya Waldrop APRN~ ADDENDUMA fracture in the right third rib is also noted. Addendum Dictated By: Epi Ordonez MD Addendum Signed By: <Electronically signed by Epi Ordonez MD in OV> 04/20/251922 Addendum Cosigned By: DD/ TD/TT: / [id number] Ordering provider: Katya Waldrop NP History: . fall. rt. rib pain . Comparison: None. FINDINGS: BONES: Highly suggestive fracture of the right eighth rib. LUNGS: No effusions or infiltrates. No pneumothorax. SOFT TISSUES: Normal. IMPRESSION: Highly suggestive fracture of the right eighth rib. Follow-up advised. Reviewed, dictated and finalized at location A. Please be advised this is a medical document. It is intended for [id number] communication. It is written in medical language and may contain unfamiliar abbreviations or verbiage. Medical documents are intended to carry relevant information, facts as evident, and the clinical opinion of the practitioner at the time of the encounter. This report may have been done utilizing a voice recognition system. Attempts have been made to correct errors. However, there may be uncorrected grammatical, spelling, and recognition errors present. The file time of this note does not necessarily represent the time of service. Dictated By: Epi Ordonez MD 04/20/252 Signed By: <Electronically signed by Epi Ordonez MD in OV> Critical Care Time Critical Care Time Critical Care Time: No Discharge Plan Discharge Clinical Impression: Multiple rib fractures Qualifiers: Encounter type: initial encounter Fracture type: closed Laterality: right Qualified Code(s): S22.41XA - Multiple fractures of ribs, right side, initial encounter for closed fracture Patient Disposition: Home Condition: Stable Instructions: Rib Fracture (ED) Additional Instructions: Increase fluids especially juices and water Yube-mrp-evdwwsh cough and cold medicine of your choice for your symptoms Tylenol or Ibuprofen for any pain Continue your inhaler/nebulizer as directed If your symptoms persist, change or worsen significantly before you can contact your personal physician then please, without delay, go to the emergency department for further evaluation. Follow-up with PCP in 7-10 days or sooner if needed Follow up with PCP soon in regards to your blood pressure which is elevated above threshold for referral. Blood pressure above 120/80 may indicate pre- hypertension. Minimal elevation at 128/82 Stop Smoking Patient Language: Swiss Prescriptions: No Action metoprolol succinate 50 mg Tablet Extended Release 24 Hr 50 mg PO DAILY simvastatin 40 mg Tablet 40 mg PO DAILY montelukast 10 mg tablet 10 mg PO DIRECTED (DME) Aerochamber MV Spacer See Rx Instructions .Route Qty: 1 0RF Rx Instructions: As directed Jardiance 10 mg tablet 10 mg PO DAILY cetirizine 10 mg tablet 10 mg PO DAILY PRN (Reason: Allergy Symptoms) losartan 25 mg tablet 25 mg PO DAILY phentermine 30 mg capsule 30 mg PO DAILY Rx Instructions: must administer 2 hours after breakfast Trulicity 4.5 mg/0.5 mL pen injector 4.5 mg subcut WEEKLY oxybutynin chloride 2.5 mg tablet 2.5 mg PO DAILY omeprazole 20 mg capsule,delayed release(DR/EC) See Rx Instructions .ROUTE .COMPLEX Qty: 180 3RF Dose Instruction: TAKE 2 CAPSULES(40 MG) BY MOUTH DAILY Rx Instructions: TAKE 2 CAPSULES(40 MG) BY MOUTH DAILY Follow-up/Referrals: Alyx,Amita A., PERSON INVESTIGATOR [Primary Care Provider] - Time of Disposition: 19:29 Quality [place] Coma Scale Eyes: Open Verbal: Oriented and Alert Motor: Follows Commands [place] Coma Total Score: 15
== END 2025-04-20 19:35 | disposition home or self-care (01) ==
PROVIDERS: Emergency Provider Registered Nurse; PCP Nurse Practitioner Family
DX: S22.41XA Multiple fractures of ribs, right side, initial encounter for closed fracture (principal); W09.1XXA Fall from playground swing, initial encounter; K22.70 Barrett's esophagus without dysplasia; K74.60 Unspecified cirrhosis of liver; K21.9 Gastro-esophageal reflux disease without esophagitis; I10 Essential (primary) hypertension; E78.5 Hyperlipidemia, unspecified; E11.9 Type 2 diabetes mellitus without complications; Z79.84 Long term (current) use of oral hypoglycemic drugs; J44.9 Chronic obstructive pulmonary disease, unspecified; E66.9 Obesity, unspecified; Z68.41 Body mass index [BMI] 40.0-44.9, adult; F17.210 Nicotine dependence, cigarettes, uncomplicated
CPT/HCPCS: 71101; 99213; G0463

== ENCOUNTER 2025-05-03 01:01 | Day surgery (SDC) | payer OTHER, SELFPAY ==
[2025-04-25 14:39] VITALS: BMI 42.5
--- OUTSIDE RECORDS SUMMARY | 2025-05-03 01:03 | XMS_ITS | Encounter Summary ---
Author Organization [facility] Address [address] [place] [address] Phone Care Team Providers Care Brim Flexer Name Role Phone Alyx, Amita JASON CNP Primary Care Provider [phone] Reason for Referral * Radiology Services (Routine) - Authorized Specialty Diagnoses / Procedures Referred By Contac t Referred To Contact Radiology Diagnoses Hepatic cirrhosis, unspecified hepatic cirrhosis type, unspecified whether ascites present (HCC) Abnormal LFTs (liver function tests) Procedures US ABDOMEN LIMITED LEVEL 3 THREE ORGAN Lino Bergeron MD [address] [place] [address] Phone: tel: fax: Referral ID Status Reason Start Date Expiration Date V isits Requested Visits Authorized [id number] Authorized 05/02/2025 1 1 Encounter Details Date Type Department Care Team (Latest Contact Info) Description 05/02/2025 Transcribe Orders [facility] Central Scheduling [address] [place] [id number] Lino Bergeron MD [address] [place] [address] Hepatic cirrhosis, unspecified hepatic cirrhosis type, unspecified whether ascites present (HCC) (Primary Dx); Abnormal LFTs (liver function tests) Social History Tobacco Use Types Packs/Day Years [...] on file Sexual Orientation Not on file documented as of this encounter Plan of Treatment Upcoming Encounters Date Type Department Care Team (Late st Contact Info) Description 06/04/2025 9:00 AM CDT Appointment [facility] Ultrasound [address] [place] [address] Lino Bergeron MD [address] [place] [address] Discharge Disposition: Discharged to home or Selfcare Scheduled Orders Name Type Priority Associated Diagnoses Orde r Schedule US ABDOMEN LIMITED LEVEL 3 THREE ORGAN Imaging Routine Hepatic cirrhosis, unspecified hepatic cirrhosis type, unspecified whether ascites present (HCC) Abnormal LFTs (liver function tests) Expected: 06/04/2025, Expires: 06/04/2026 documented as of this encounter Visit Diagnoses Diagnosis Hepatic cirrhosis, unspecified hepatic cirrhosis type, unspecified whether ascites present (HCC)- Primary Abnormal LFTs (liver function tests) Other abnormal blood chemistry documented in this encounter Care Teams Brim Flexer Relationship Specialty Start Date End Date Amita Wisdom APRN, FRED[place] [address] [place] [address] PCP - General Family Medicine 04/26/19 documented as of this encounter
--- OUTSIDE RECORDS SUMMARY | 2025-05-03 01:04 | XMS_ITS | Data Portability ---
Author Organization [facility]yla [facility] Address [address] [place] [address] Care Team Providers Care Health Concierge Name Role Phone AMITA JOHNSON Primary Care Provider Unavailabl e Assessment No assessment recorded. Plan of Treatment Reminders Order Date Submit Date Provider Last Modified By Organization Details Last Modified Time Details Appointments ANY 2024 08:30A M Amita Johnson APN, RUBBER STAMP DIES INSPECTOR-C Not available Not available Not available ANY 2024 10:30A M Shmuel Thakkar MD Not available Not available Not available Lab CMP, serum or plasma 2024 025 [facility], [address] [place] [address] 2, [place], [address], 04/23/2025 15:04:55 lipid panel, serum 2024 025 [email or web address] [facility], [address] [facility] [address], [place], [address], 04/23/2025 15:04:55 HbA1c (hemoglob in A1c), blood 2024 025 In-Office Order, Internal Use Only DO Not Attach Compendium DO Not Attach Compendium, Do Not Delete/merge, [id number] 03/28/2025 10:10:56 Referral None recorded. Procedures None recorded. Surgeries None recorded. Imaging CT, angiogram , coronary arteries, w/ contrast 2024 025 [facility] - [address], [address] [place], [address], 04/03/2025 10:21:56 XR, chest, 2 view 2024 [facility], [address] [place], [address], 01/31/2025 16:16:04 Medication Orders potassium chloride ER 20 mEq tablet,ex tended release 2024 025 [facility]80277, [address], [place], [place], [id number], 04/23/2025 15:05:10 aspirin 81 mg tablet,de layed release 2024 [facility]31615, [address], [place], [place], [id number], 04/23/2025 15:05:11 atorvasta tin 40 mg tablet [facility]24 [facility], [address], [place], [place], [id number], 04/23/2025 15:05:11 Jardiance 25 mg tablet [address] [facility] #02899, [address], [place], [place], [id number], 04/23/2025 14:42:28 nystatin 100,000 unit/gram topical cream 2024 025 [facility], [address], [place], [place], [id number], 03/28/2025 10:11:50 fluconazo le 150 mg tablet 2024 [facility], [address], [place], [place], [id number], 03/28/2025 10:10:44 Lasix 20 mg tablet 2024 [facility] #29374, [address], [place], [place], [id number], 03/05/2025 15:05:39 potassium chloride ER 20 mEq tablet,ex tended release 2024 [facility] #46317, [address], [place], [place], [id number], 03/05/2025 15:05:38 cefdinir 300 mg capsule 2024 [facility] #72580, [address], [place], [place], [id number], 03/05/2025 14:37:57 albuterol sulfate 2.5 mg/3 mL (0.083 %) solution for nebulizat ion 2024 Not available 02/12/2025 11:16:38 Symbicort 80 mcg-4.5 mcg/actua tion HFA aerosol inhaler 2024 [facility] #94485, [address], [place], [place], [id number], 03/05/2025 14:38:14 Patient TargetsNo targets recorded. Patient Instructions Encounter Date Encounter Id Patient Instructions Last Modified By Organization Details Last Modified Time 01/31/2025 [id number] A healthy lifest yle: care instructions Not [...] planned Not availa ble 01/31/2025 14:48:30 02/12/2025 [id number] ear infection (otitis media): care instructions [email or web address] Not available 02/12/2025 11:11:18 COPD exacerbatio n plan: care instructions [email or web address] Not available 02/12/2025 11:11:18 chronic obstruct manny pulmonary disease (COPD) flare-ups: care instructions [email or web address] Not available 02/12/2025 11:11:18 Plan of care has been discussed with patient including expected therapeutic benefits and potential side effects of prescribed medication and treatments. Patient verbalizes understanding and is in agreement with the plan of care. Patient was instructed to keep all scheduled appointments and contact the clinic for any additional problems. [email or web address] Not available 02/26/2025 07:06:41 03/05/2025 [id number] Quitting Tobacco : Care Instructions [email or web address] Not available 03/05/2025 15:00:25 A healthy lifest yle: care instructions [email or web address] Not available 03/05/2025 15:00:25 03/28/2025 [id number] deciding about u sing medicines to quit [...] f/u 3 months Not available 06/2025 08:52:48 04/23/2025 [id number] Quitting Tobacco : Care Instructions [email or web address] Not available 04/23/2025 15:06:00 A healthy lifest yle: care instructions [email or web address] Not available 04/23/2025 15:04:55 Reason for Referral None Reported. Results Created Date Observation Date Name Description Value Unit Range Abnormal Flag Note LastModifiedBy Organization Detail LastModifiedTime 02/19/20 25 02/18/2025 CBC W Auto Diffe renti al panel - Blood leukocytes [#/volume] in blood by automated count 4.56 text: 4.00 - 12.00 10(3)/ mcL WBC 4.56 4.00 - 12.00 10(3) /mcL 02/18 9:02 PM CDT [facility] Not Available Not Available 02/25/2025 12:10:13 02/19/20 25 02/18/2025 CBC W Auto Diffe renti al panel - Blood erythrocytes [#/volume] in blood by automated count 5.22 text: 3.80 - 5.30 10(6)/ mcL RBC 5.22 3.80 - 5.30 10(6) /mcL 02/18 9:02 PM CDT [facility] Not Available Not Available 02/25/2025 12:10:13 02/19/20 25 02/18/2025 CBC W Auto Diffe renti al panel - Blood hemoglobin [mass/volume ] in blood 16.4 g/dL low: 12g/dL high: 15.8g/ dL high HEMOG LOBIN (HGB) 16.4 (H) 12.0 - 15.8 g/dL 02/18 9:02 PM CDT [facility] [employer] R LAB Not Available Not Available 02/25/2025 12:10:13 02/19/20 25 02/18/2025 CBC W Auto Diffe renti al panel - Blood hematocrit [volume fraction] of blood by automated count 49.5 % low: 36%hig h: 47% high HEMAT OCRIT (HCT) 49.5 (H) 36.0 - 47.0 % 02/18 9:02 PM CDT [facility] [employer] LAB Not Available Not Available 02/25/2025 12:10:13 02/19/20 25 02/18/2025 CBC W Auto Diffe renti al panel - Blood MCV [entitic mean volume] in red blood cells by automated count 94.8 fL low: 82fLhi gh: 96fL MCV 94.8 82.0 - 96.0 fL 02/18 9:02 PM CDT [facility] [employer] [facility] LAB Not Available Not Available 02/25/2025 12:10:13 02/19/20 25 02/18/2025 CBC W Auto Diffe renti al panel - Blood MCH [entitic mass] by automated count 31.4 pg low: 26pghi gh: 34pg MCH 31.4 26.0 - 34.0 pg 02/18 9:02 PM CDT [facility] Not Available Not Available 02/25/2025 12:10:13 02/19/20 25 02/18/2025 CBC W Auto Diffe renti al panel - Blood MCHC [entitic mass/volume] in red blood cells by automated count 33.1 g/dL low: 31g/dL high: 36g/dL MCHC 33.1 31.0 - 36.0 g/dL 02/18 9:02 PM [facility] Not Available Not Available 02/25/2025 12:10:13 02/19/20 25 02/18/2025 CBC W Auto Diffe renti al panel - Blood platelets [#/volume] in blood 106 text: 140 - 440 10(3)/ mcL low PLATE LET COUNT 106 (L) 140 - 440 10(3) /mcL 02/18 9:02 PM CDT [facility] Not Available Not Available 02/25/2025 12:10:13 02/19/20 25 02/18/2025 CBC W Auto Diffe renti al panel - Blood erythrocyte [distwidth] in red blood cells by automated count 14.4 % low: 11.8%h igh: 15.5% RDW 14.4 11.8 - 15.5 % 02/18 9:02 PM CDT [facility] Not Available Not Available 02/25/2025 12:10:13 02/19/20 25 02/18/2025 CBC W Auto Diffe renti al panel - Blood platelet [entitic mean volume] in blood by automated count 12.2 fL low: 9.7fLh igh: 12.4fL MPV 12.2 9.7 - 12.4 fL 02/18 9:02 PM CDT [facility] Not Available Not Available 02/25/2025 12:10:13 02/19/20 25 02/18/2025 CBC W Auto Diffe renti al panel - Blood neutrophils/ leukocytes in blood by automated count 66 % low: 47%hig h: 73% NEUTR OPHIL S 66.0 47.0 - 73.0 % 02/18 9:02 PM CDT [facility] Not Available Not Available 02/25/2025 12:10:13 02/19/20 25 02/18/2025 CBC W Auto Diffe renti al panel - Blood lymphocytes/ leukocytes in blood by automated count 24.1 % low: 18%hig h: 42% LYMPH OCYTE S 24.1 18.0 - 42.0 % 02/18 9:02 PM CDT [facility] Not Available Not Available 02/25/2025 12:10:13 02/19/20 25 02/18/2025 CBC W Auto Diffe renti al panel - Blood monocytes/le ukocytes in blood by automated count 7.9 % low: 4%high : 12% MONOC YTES 7.9 4.0 - 12.0 % 02/18 9:02 PM CDT [facility] Not Available Not Available 02/25/2025 12:10:13 02/19/20 25 02/18/2025 CBC W Auto Diffe renti al panel - Blood eosinophils/ leukocytes in blood by automated count 1.3 % low: 0%high : 5% EOSIN OPHIL S 1.3 0.0 - 5.0 % 02/18 9:02 PM CDT [facility] Not Available Not Available 02/25/2025 12:10:13 02/19/20 25 02/18/2025 CBC W Auto Diffe renti al panel - Blood basophils/le ukocytes in blood by automated count 0.7 % low: 0%high : 1% BASOP HILS 0.7 0.0 - 1.0 % 02/18 9:02 PM CDT [facility] Not Available Not Available 02/25/2025 12:10:13 02/19/20 25 02/18/2025 CBC W Auto Diffe renti al panel - Blood neutrophils [#/volume] in blood by automated count 3.01 text: 1.60 - 7.70 10(3)/ mcL ABSOL CHEHALIS NEUTR OPHIL S 3.01 1.60 - 7.70 10(3) /mcL 02/18 9:02 PM CD[facility] Not Available Not Available 02/25/2025 12:10:13 02/19/20 25 02/18/2025 CBC W Auto Diffe renti al panel - Blood lymphocytes [#/volume] in blood by automated count 1.1 text: 1.30 - 3.20 10(3)/ mcL low ABSOL CHEHALIS LYMPH OCYTE S 1.10 (L) 1.30 - 3.20 10(3) /mcL 02/18 9:02 PM CDT [facility] Not Available Not Available 02/25/2025 12:10:13 02/19/20 25 02/18/2025 CBC W Auto Diffe renti al panel - Blood monocytes [#/volume] in blood by automated count 0.36 text: 0.20 - 1.00 10(3)/ mcL ABSOL CHEHALIS MONOC YTES 0.36 0.20 - 1.00 10(3) /mcL 02/18 9:02 PM CDT [facility] Not Available Not Available 02/25/2025 12:10:13 02/19/20 25 02/18/2025 CBC W Auto Diffe renti al panel - Blood eosinophils [#/volume] in blood by automated count 0.06 text: 0.00 - 0.40 10(3)/ mcL ABSOL CHEHALIS EOSIN OPHIL 0.06 0.00 - 0.40 10(3) /mcL 02/18 9:02 PM CDT [facility] Not Available Not Available 02/25/2025 12:10:13 02/19/20 25 02/18/2025 CBC W Auto Diffe renti al panel - Blood basophils [#/volume] in blood by automated count 0.03 text: 0.00 - 0.10 10(3)/ mcL ABSOL CHEHALIS BASOP HILS 0.03 0.00 - 0.10 10(3) /mcL 02/18 9:02 PM CDT [facility] Not Available Not Available 02/25/2025 12:10:13 02/19/20 25 02/18/2025 CBC W Auto Diffe renti al panel - Blood nucleated erythrocytes /leukocytes [ratio] in blood 0 NRBC PER 100 WBC 0 02/18 9:02 PM CDT [facility] Not Available Not Available 02/25/2025 12:10:13 02/19/2002/18/2025 CBC W Auto Diffe renti al panel - Blood interpretati on and review of laboratory results Abnorm al Not Available Not Available 12:10:13 02/19/2002/18/2025 Thyro tropi n [Unit s/vol ume] in Serum or Plasm a thyrotropin [units/volum e] in serum or plasma 1.604 text: 0.300 - 5.000 mIU/L TSH 1.604 0.300 - 5.000 mIU/L 02/18 9:43 PM CDT [facility] Not Available Not Available 02/25/2025 12:10:13 02/19/2002/18/2025 Thyro tropi n [Unit s/vol ume] in Serum or Plasm a interpretati on and review of laboratory results Normal Not Available Not Available 05/2025 12:10:13 02/19/2002/18/2025 Fibri n D-dim er FEU [Mass /volu me] in Plate let poor plasm a fibrin D-dimer feu [mass/volume ] in platelet poor plasma 1.62 text: <0.50 mcg/mL feu high D DIMER 1.62 (H) <0.50 mcg/m L FEU 02/18 9:17 PM CDT [facility] Not Available Not Available [...] L 02/18 9:28 PM CDT [facility] Not Available Not Available 02/25/2025 12:10:13 02/19/20 25 02/18/2025 Compr ehens manny metab olic 1999 panel - Serum or Plasm a potassium [moles/volum e] in serum or plasma 3.8 mmol/ L low: 3.5mmo l/Lhig h: 5.1mmo l/L POTAS SIUM 3.8 3.5 - 5.1 mmol/ L 02/18 9:28 PM CDT [facility] Not Available Not Available 02/25/2025 12:10:13 02/19/20 25 02/18/2025 Compr ehens manny metab olic 1999 panel - Serum or Plasm a chloride [moles/volum e] in serum or plasma 105 mmol/ L low: 98mmol /Lhigh : 107mmo l/L CHLOR ASIM 105 98 - 107 mmol/ L 02/18 9:28 PM CDT [facility] Not Available Not Available 02/25/2025 12:10:13 02/19/20 25 02/18/2025 Compr ehens manny metab olic 1999 panel - Serum or Plasm a carbon dioxide, total [moles/volum e] in serum or plasma 22 mmol/ L low: 22mmol /Lhigh : 30mmol /L CO2, VENOU S 22 22 - 30 mmol/ L 02/18 9:28 PM CDT [facility] Not Available Not Available 02/25/2025 12:10:13 02/19/20 25 02/18/2025 Compr ehens manny metab olic 1999 panel - Serum or Plasm a anion gap in serum or plasma by calculation 14.8 mmol/ L high: 18mmol /L ANION GAP 14.8 <18.0 mmol/ L 02/18 9:28 PM CDT [facility] [employer] [facility] Not Available Not Available 02/25/2025 12:10:13 02/19/20 25 02/18/2025 Compr ens manny metab olic 1999 panel - Serum or Plasm a glucose [mass/volume ] in serum or plasma 126 mg/dL low: 70mg/d Lhigh: 99mg/d L high GLUCO SE 126 (H) 70 - 99 mg/dL 02/18 9:28 PM CDT [facility] [employer] [facility] Not Available Not Available 02/25/2025 12:10:13 02/19/20 25 02/18/2025 Compr ens manny metab olic 1999 panel - Serum or Plasm a urea nitrogen [mass/volume ] in serum or plasma 8 mg/dL low: 10mg/d Lhigh: 20mg/d L low BUN 8 (L) 10 - 20 mg/dL 02/18 9:28 PM CDT [facility] [employer] [facility] Not Available Not Available 02/25/2025 12:10:13 02/19/20 25 02/18/2025 Compr ens manny metab olic 1999 panel - Serum or Plasm a creatinine [mass/volume ] in serum or plasma 0.61 mg/dL low: 0.6mg/ dLhigh : 1mg/dL CREAT ININE , BLOOD 0.61 0.60 - 1.00 mg/dL 02/18 9:28 PM CDT [facility] [employer] [facility] LAB Not Available Not Available 02/25/2025 12:10:13 02/19/20 25 02/18/2025 Compr ens manny metab olic 1999 panel - Serum or Plasm a urea nitrogen/cre atinine [mass ratio] in serum or plasma 13 text: 12 - 20 ratio BUN/C REATI NINE RATIO 13 12 - 20 ratio 02/18 9:28 PM CDT [facility] Not Available Not Available 02/25/2025 12:10:13 02/19/20 25 02/18/2025 Compr ehens manny metab olic 1999 panel - Serum or Plasm a protein [mass/volume ] in serum or plasma 6.6 g/dL low: 6g/dLh igh: 8g/dL TOTAL PROTE IN 6.6 6.0 - 8.0 g/dL 02/18 9:28 PM CDT [facility] [employer] LAB Not Available Not Available 02/25/2025 12:10:13 02/19/20 25 02/18/2025 Compr ehens manny metab olic 2000 panel - Serum or Plasm a albumin [mass/volume ] in serum or plasma 3.6 g/dL low: 3.5g/d Lhigh: 5g/dL ALBUM IN 3.6 3.5 - 5.0 g/dL 02/18 9:28 PM CDT [facility] [employer] LAB Not Available Not Available 02/25/2025 12:10:13 02/19/20 25 02/18/2025 Compr ehens manny metab olic 2000 panel - Serum or Plasm a albumin/glob ulin [mass ratio] in serum or plasma 1.2 low: 1high: 2.2 A/G RATIO 1.2 1.0 - 2.2 02/18 9:28 PM CDT [facility] [employer] [facility] Not Available Not Available 02/25/2025 12:10:13 02/19/20 25 02/18/2025 Compr ehens manny metab olic 2000 panel - Serum or Plasm a calcium [mass/volume ] in serum or plasma 9 mg/dL low: 8.7mg/ dLhigh : 10.5mg /dL CALCI UM 9.0 8.7 - 10.5 mg/dL 02/18 9:28 PM CDT [facility] [employer] R LAB Not Available Not Available 02/25/2025 12:10:13 02/19/20 25 02/18/2025 Compr ehens manny metab olic 2000 panel - Serum or Plasm a bilirubin.to briseyda [mass/volume ] in serum or plasma 0.8 mg/dL low: 0.2mg/ dLhigh : 1.2mg/ dL T BILI 0.8 0.2 - 1.2 mg/dL 02/18 9:28 PM CDT [facility] [employer] [facility] Not Available Not Available 02/25/2025 12:10:13 02/19/20 25 02/18/2025 Compr [employer] manny metab olic 1999 panel - Serum or Plasm a aspartate aminotransfe rase [enzymatic activity/vol ume] in serum or plasma 29 U/L high: 43U/L SGOT (AST) 29 <43 U/L 02/18 9:28 PM CDT [facility] [employer] [facility] Not Available Not Available 02/25/2025 12:10:13 02/19/20 25 02/18/2025 Compr [employer] manny [employer] olic 2000 panel - Serum or Plasm a alanine aminotransfe rase [enzymatic activity/vol ume] in serum or plasma 19 U/L high: 56U/L SGPT (ALT) 19 <56 U/L 02/18 9:28 PM CDT [facility] [employer] [facility] Not Available Not Available 02/25/2025 12:10:13 02/19/2002/18/2025 Compr [employer] manny [employer] olic 2000 panel - Serum or Plasm a alkaline phosphatase [enzymatic activity/vol ume] in serum or plasma 154 U/L low: 40U/Lh igh: 150U/L high ALKAL INE PHOSP HATAS E 154 (H) 40 - 150 U/L 02/18 9:28 PM CDT [facility] [employer] [facility] Not Available Not Available 02/25/2025 12:10:13 02/19/2002/18/2025 Compr [employer] manny [employer] olic 1999 panel - Serum or Plasm a glomerular filtration rate [volume rate/area] in serum, plasma or blood by creatinine-b ased formula (CKD-epi 2020)/1.73 sq M low: 60 GFR, ESTIM ATED >60 >=60 02/18 9:28 PM CDT [facility] [employer] [facility] Not Available Not Available 02/25/2025 12:10:13 02/19/20 25 02/18/2025 Compr ehens manny metab olic 2000 panel - Serum or Plasm a glomerular filtration rate [volume rate/area] in serum, plasma or blood by creatinine-b ased formula (MDRD)/1.73 sq M among black population low: 60 GFR, EST. AFRIC AN >60 >=60 02/18 9:28 PM CDT [facility] [employer] LAB Not Available Not Available 02/25/2025 12:10:13 02/19/20 25 02/18/2025 Compr ehens manny metab olic 2000 panel - Serum or Plasm a glomerular filtration rate [volume rate/area] in serum, plasma or blood by creatinine-b ased formula (MDRD)/1.73 sq M among non black population low: 60 GFR, EST. NONAF RICAN >60 >=60 02/18 9:28 PM CDT [facility] [employer] [facility] LAB Not Available Not Available 02/25/2025 [...] <100 pg/mL 02/18 9:33 PM CDT [facility] [employer] [facility] Not Available Not [...] DO Not Attach Compendium, Do Not Delete/merge, [id number] 03/28/2025 08:51:06 02/01/2001/31/2025 XR, chest , 2 view No observ ation record ed. [facility] (Radiology) [address] [place], [address], 01/31/2025 18:28:04 03/05/20 25 02/18/2025 elect rigo diogr am No observ ation record ed. [email or web address] Not Available 2024 14:38:34 04/03/[address], angio gram, coron jeremy arter ies, w/ contr ast No observ ation record ed. [facility] - [address] [place], [address], 04/04/2025 16:01:19 04/16/20 25 brayan r monit or No observ ation record ed. [employer] [address], [place], [address], 04/23/2025 16:58:43 Result Notes None recorded. Problems Name Problem SNOMED Code Status Onset Date Resolution Date Notes Provider Name and Address Organization Details Recorded Time Morbid obesity 098937870 Active 2017 Amita Johnson APN, FNP-C Attn: Elizabeth newman,[address] [place], [address], [facility] 8 12:38:28 Tobacco dependence syndrome 76919987 Active 2018 Amita Johnson APN, FNP-C Attn: Elizabeth newman,[address] [place], [address], [facility] 9 16:16:04 Sleep apnea 51778920 Active 2018 Amita Johnson APN, FNP-C Attn: Elizabeth newman,[address] [place], [address], [place] [facility] 9 12:23:58 Severe dry skin 855327089 Active 2018 Amita Johnson APN [employer]BB[employer] DIES INSPECTOR-C Attn: Elizabeth paty,[address] [facility], [place], [address], [place] [facility] 9 14:37:29 Allergic rhinitis 40946506 Active 2019 Amita Johnson APN RUBBER [employer] DIES INSPECTOR-C Attn: Elizabeth g,[address] [facility], [place], [address], [place] [facility] 0 14:48:16 Pain of multiple joints 31821060 Active 2020 Amita Johnson APN RUBBER ST[employer] DIES INSPECTOR-C Attn: Elizabeth paty,[address] [facility], [place], [address], [place] - [facility] 1 12:33:49 Posterior rhinorrhea 92715100 Active 2021 Amita Johnson APN, RUBBER STAMP DIES INSPECTOR-C Attn: Elizabeth newman,[address] [facility], [place], [address], [place] - [facility] 2 12:01:35 Tobacco user 618605195 Active 2021 Amita Johnson APN, RUBBER STAMP DIES INSPECTOR-C Attn: Elizabeth paty,[address] [facility], [place], [address], [place] - [facility] 2 13:58:06 Chronic obstructive pulmonary disease 87094956 Active 2022 Amita Johnson APN, RUBBER ST[employer] DIES INSPECTOR-C Attn: Elizabeth g,[address] [facility], [place], [address], [place] [facility] 3 12:29:22 Smoker 15096619 Active 2022 Amita Johnson APN, RUBBER STAMP DIES INSPECTOR-C Attn: Elizabeth newman,[address] [facility], [place], [address], [place] [facility] 3 12:30:36 Hepatomegal y 53207788 Active 2023 Amita Johnson APN, FNP-C Attn: Yungnataly newman,[address] [facility], [place], [address], [facility] 4 12:29:28 Obesity 703562533 Active 2023 Amita Johnson APN, FNP-C Attn: Yungnataly newman,[address] [facility], [place], [address], [place] - [facility] 4 11:52:49 Panniculiti s 58712792 Active 2024 Amita Johnson APN, FNP-C Attn: Yungnataly newman,[address] [facility], [place], [address], [facility] 5 10:11:47 Candidiasis of vagina 86637607 Active 2024 Amita Johnson APN, FNP-C Attn: Yungnataly newman,[address] [facility], [place], [address], [facility] 5 10:11:48 Costal chondritis 31178466 Completed 05/15/2019 Amita Johnson APN, FNP-C Attn: Yungnataly newman,[address] [facility], [place], [address], [facility] 9 10:16:21 Type 2 diabetes mellitus 02336504 Active Florentin Garvey MD Attn: Yungnataly newman,[address] [facility], [place], [address], [place] - [facility] 6 13:33:07 Obesity 099648900 Completed 12/05/2018 Amita Johnson APN, FNP-C Attn: Yungnataly newman,[address] [facility], [place], [address], [facility] 4 11:52:49 Essential hypertensio n 04082365 Active Florentin Garvey MD Attn: Elizabeth paty,[address] [facility], [place], [address], [place] - [facility] 6 13:33:07 Dyslipidemi a 823450170 Active Florentin Garvey MD Attn: Elizabeth paty,[address] [place], [address], [place] [facility] 6 13:33:07 Acute sinusitis 04559196 Completed 07/27/2017 Amita Johnson APN, FNP-C Attn: Elizabeth paty,[address] [place], [address], [place] [facility] 7 13:58:47 Arthritis 3717090 Active Florentin Garvey MD Attn: Elizabeth paty,[address] [place], [address], [place] [facility] 6 18:09:25 Smoker 41341499 Completed 12/05/2018 Amita Johnson APN, FNP-C Attn: Elizabeth newman,[address] [place], [address], [place] [facility] 3 12:30:36 Gastroesoph ageal reflux disease 204558469 Active Florentin Garvey MD Attn: Elizabeth newman,[address] [place], [address], [place] [facility] 6 13:33:07 Upper respiratory infection 62646023 Completed 07/27/2017 Amita Johnson APN, FNP-C Attn: Elizabeth newman,[address] [place], [address], [place] [facility] 7 13:58:52 Mixed anxiety and depressive disorder 925457318 Active 2016 Amita Johnson APN, FNP-C Attn: Elizabeth newman,[address] [place], [address], [place] [facility] 7 15:00:26 Liver enzymes level above reference range 169240596 Completed 201605/15/2019 Amita Johnson APN, FNP-C Attn: Elizabeth newman,[address] [place], [address], [facility] 9 10:16:31 Rheumatoid factor detected 815606484 Active 2016 Amita Johnson APN, [employer] INSPECTOR-C Attn: Elizabeth newman,[address] [facility], [place], [address], [facility] 7 15:00:32 Problem Notes None recorded. Procedures Surgical History Date Name Laterality Status Provider Name and Address Organization Details Recorded Time 1 Endometrial Biopsy completed Matilda Vital [facility] 04/14/2021 17:02:57 1 Endometrial Biopsy completed Naz Yin MA [facility] 04/14/2021 16:28:30 1 Most Recent Mammogram completed Naz Yin MA [facility] 04/08/2021 09:18:37 1 Date of Last Pap Smear completed Naz Yin MA [facility] 04/08/2021 09:18:08 3 repair of umbilical hernia completed Naz Yin MA [facility] 03/10/2021 09:14:09 3 delivery completed Naz Yin MA [facility] 03/10/2021 09:13:40 9 delivery completed Naz Yin MA [facility] 03/10/2021 09:13:28 3 Other completed Naz Yin MA [facility] 03/10/2021 09:14:55 Imaging Results None recorded. Procedure Notes None recorded. Medical Equipment None Reported. Allergies Allergen ID Allergen Name Allergen Category Reaction Reaction Severity Criticality Documentation Date Start Date Code Code System Note Provider Name and Address Organization Details Recorded Time 5235 Product containin g penicilli n (product) medicatio n Not available Not available Not available 10/23/2014 88803 8001 SNOMED ok with amox- just not pcn Amita Johnson APN, [employer] INSPECTOR-C Attn: Elizabeth newman,[address] [facility], [place], [address], [facility] 9 10:17:45 5236 Avelox medicatio n Not available Not available Not available 10/23/2014 51780 6 RxNorm Jessica Latif MA null, [place] - [facility] 4 16:24:38 Medications Name Sig Start Date [...] completed Not Available Not Available Not Available atorvasta tin 40 mg tablet TAKE 1 TABLET BY MOUTH EVERY DAY active Not Available Not Available No t Available Qvar 80 mcg/actua tion Metered Aerosol [...] completed Not Available Not Available Not Available aspirin 81 mg tablet,de layed release Take 1 tablet every day by oral route. 2024 active Not Available Not Available Not Avai lable doxycycli ne monohydra te 100 mg tablet [...] Not Available Not Available No t Available bupropion HCl SR 100 mg tablet,12 hr sustained -release TAKE 1 TABLET BY MOUTH TWICE DAILY 12/05 completed Not Available Not Available Not Available amoxicill in 500 mg tablet Take 1 tablet 3 times a day by oral route. 07/27 completed Not Available Not Available Not Available simvastat in 40 mg tablet TAKE 1 TABLET BY MOUTH EVERY EVENING 04/23 completed Not Available Not Available Not Available amoxicill in 875 mg tablet TAKE 1 TABLET BY MOUTH EVERY 12 HOURS FOR 10 DAYS 10/07 completed Not Available Not Available Not Available citalopra m 20 mg tablet Take 1 tablet every day by oral route. 05/15 completed 05/15/20 19-pt hasn't beentaki ng due to going to her [facility] and having several test done Not Available Not Available Not Available famotidin e 20 mg tablet Take 1 tablet twice a day by oral route for 30 days. 07/27 completed Not Available Not Available Not Available Whiteout NetworksTouch Ultra Test strips USE TO TEST SUGAR [...] TABLET BY MOUTH TWICE DAILY WITH MEALS 04/23 completed Not Available Not Available Not Available nystatin 100,000 unit/gram topical cream APPLY [...] MOUTH EVERY 12 HOURS FOR 5 DAYS 04/23 completed Not Available Not Available Not Available Byetta 5 mcg/dose (250 mcg/mL)1. 2 [...] chloride ER 20 mEq tablet,ex tended release Take 1 tablet every day by oral route, for with Lasix. 2024 active Not Available Not Available Not Avai lable Bydureon 2 mg/0.65 mL subcutane ous pen injector INJECT 2 MG SUBCUTAN EOUSLY EVERY WEEK 10/20 completed has been taking byetta Not Available Not Available Not Available Jardiance 10 mg tablet TAKE 1 TABLET BY MOUTH EVERY DAY IN THE MORNING 04/23 completed Not Available Not Available Not Available Jardiance 25 mg tablet TAKE 1 TABLET BY MOUTH EVERY DAY active Pt taking twice daily Not Available Not Available Not Available Trulicity 1.5 mg/0.5 mL subcutane ous [...] on Not Available Not Available Not Available Apropose Ultra Blue Test Strip 08/18 completed Not [...] Updated DateTime 5 154.94 cm 43.3 kg/m2 049071. 65 g 95 % 95 % 16 /min 98 [degF] 118 /min 138 mm[Hg] 84 mm[Hg] KELLY Hoang [place] [facility] 5 14:36:53 Date Recorded Body height Body mass index (BMI) Body weight Oxygen saturation Oxygen saturation in Arterial blood by Pulse oximetry Heart rate Respiratory rate Body temperature Systolic blood pressure Diastolic blood pressure Provider Name and Address Organization Details Last Updated DateTime 5 154.94 cm 45.5 kg/m2 932213. 76 g 97 % 97 % 78 /min 16 /min 97.2 [degF] 134 mm[Hg] 86 mm[Hg] Zoë Fuentes MA [facility] 5 10:56:59 Date Recorded Body height Body mass index (BMI) Body weight Heart rate Oxygen saturation Oxygen saturation in Arterial blood by Pulse oximetry Systolic blood pressure Diastolic blood pressure Provider Name and Address Organization Details Last Updated DateTime 5 154.94 cm 43.3 kg/m2 843398. 65 g 103 /min 95 % 95 % 138 mm[Hg] 72 mm[Hg] Laila Kilpatrick RN [facility] 5 14:37:09 Date Recorded Body height Body mass index (BMI) Body weight Oxygen saturation Oxygen saturation in Arterial blood by Pulse oximetry Respiratory rate Body temperature Heart rate Systolic blood pressure Diastolic blood pressure Provider Name and Address Organization Details Last Updated DateTime 5 154.94 cm 43.5 kg/m2 038736. 25 g 97 % 97 % 16 /min 98 [degF] 80 /min 124 mm[Hg] 84 mm[Hg] KELLY Hoang [place] [facility] 5 08:45:00 Date Recorded Body height Body mass index (BMI) Body weight Heart rate Oxygen saturation Oxygen saturation in Arterial blood by Pulse oximetry Systolic blood pressure Diastolic blood pressure Provider Name and Address Organization Details Last Updated DateTime 5 154.94 cm 42.3 kg/m2 989052. 69 g 97 /min 98 % 98 % 116 mm[Hg] 70 mm[Hg] Laila Kilpatrick RN [facility] 14:41:50 Social History Question Answer Notes LastModified by Organizat ion Details LastModified Time Tobacco Smoking Status Current Every Day Smoker Noreen morrow, [facility] 07/27/2017 13:50:49 Do You Have An Advance [...] Do You Have Serious Difficulty Hearing? No [place] On Left. Information not available 10/19/2021 What Type Of Diet Are You Following? REGULAR [email or web address] Information not available 01/11/2023 Which Illicit Or Recreational Drugs Have You Used? None Information not available 07/27/2017 Education 12 Information no t available 08/14/2019 What Is The Highest Grade Or Level Of School You Have Completed Or The Highest Degree You Have Received? [id number] Information not available 03/10/2021 Are There Any [...] available 08/14/2019 General Stress Level Medium Medium-high Information not available 01/17/2020 Has Tobacco Cessation [...] anxious, or unable to sleep at night)? [id number] [email or web address] Information not available 07/05/2023 Family History Relationship Description Onset Age of this Age Resolved Age Notes LastModified by Organization Details LastModified Time Sister Malignant neoplasm of uterus [email or web address] Not available 03/10 09:10:50 Sister Diabetes mellitus 41 [email or web address] Not available 03/10 09:11:07 Medical History Condition Response Coronary Artery Disease N Other N Atrial Fibrillation N High Blood Pressure Y Breast Cancer N Blood Clots N COPD Y Depression Y Lung Disease Y Breast Problem N Anesthesia Complications Y Headaches/Migraines N Anxiety Disorder Y Muscle, Joint, or Bone Problems Y Infertility N Polyps N Acid Reflux (GERD) Y Cancer N Stroke N Endometriosis N High Cholesterol Y Liver Disease N Headaches N Thyroid Problems N Kidney or Bladder Problems Y GI Problems N Acne N Skin Problems N Eating Disorder N Anemia Y Heart Attack ([place]) N Ovarian Cancer N Diabetes Y Blood [...] virus, quadrivalent, preservative 016 completed Not Available [facility] 12/08/2019 02:32:31 influenza, unspecified formulation 021 completed Amita Johnson APN, [employer] 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 INSPECTOR-C Attn: Accounting,[address] [place], [address], [facility] 01/11/2023 16:15:19 Influenza, split virus, quadrivalent, preservative 017 completed Not Available [facility] 12/08/2019 02:33:58 pneumococcal polysaccharide PPV23 017 completed Not Available [facility] 12/08/2019 02:43:40 Influenza, split virus, quadrivalent, preservative 019 cancelled patient objection Not Available [facility] 12/08/2019 02:43:38 COVID-19, mRNA, LNP-S, PF, 100 mcg/0.5mL dose or 50 mcg/0.25mL dose 021 completed Hansa Cruz [place], [place] [facility] 02/26/2021 15:26:33 Influenza, split virus, quadrivalent, preservative 021 completed Yoli Salazar [place], [place] [facility] 09/04/2021 17:16:08 Past Encounters Encounter ID Performer Location Encounter Start Date Encounter Closed Date Diagnosis/Indication Diagnosis SNOMED-CT Code Diagnosis ICD10 Code Diagnosis Note [id number] Florentin Garvey MD [facility] [address] [place] [address] 10/23/2014 16:08:47 10/23/2014 17:41:34 Costal chondritis 30636467 Type 2 stephanie betes mellitus 99327008 Influenza vaccine needed 5566457717 106 Obesity 449076161 Patien t was up to 350 # at one point. [id number] MD Hari Haywood [facility] [address] [place] [address] 11/24/2015 15:45:37 11/25/2015 11:41:47 Type 2 diabetes mellitus 99002073 E11.9 Essential hypertension 31535936 I10 Dyslipidemia 861637963 E 78.5 Obesity 140912564 E66.9 Patient was up to 350 # at one point. Adult heal th examination 359604804 Z00.00 Acute sinusitis 34851696 J01.90 Arthritis 2877376 M19.90 Smoker 03801682 F17.200 [id number] Florentin Garvey MD [facility] [address] [place] [address] 08/10/2016 10:46:04 08/10/2016 16:16:49 Essential hypertension 52599127 I10 Type 2 stephanie betes mellitus 22128160 E11.9 Obesity 261734273 E66.9 Patient was up to 350 # at one point. 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 Essential hypertension 97116382 I10 cont with lisinopril 20 mg qd and metoprolol ER 50 mg qd Type 2 stephanie betes mellitus 33981600 E11.9 cont with metformin 1000 mg bid and glipizide 5 mg bid, check blood sugar daily, needs labs checked and plan based on results Dyslipidemia 755270195 E 78.5 needs lab checked; cont with simvastati n 40 mg q pm Gastroesop hageal reflux disease 376341214 K21.9 takes OTC prilosec Administra tion of influenza vaccine 35947629 Z23 Administra tion of pneumococcal vaccine 45036276 Z23 Tobacco user 490759928 Z 72.0 Smoking cessation encouraged . Mixed anxi ety and depressive disorder 349554660 F41.8 no tx at this time Pain of mu ltiple joints 14256391 M25.50 various joint pains, worse in am and with weather changes, father has hx of joint pain [id number] MD Willy [facility]el (Adult Med) [address] [place] [address] 08/02/2017 13:58:27 08/04/2017 15:40:17 Dyslipidemia 928389932 E78.5 needs lab checked; cont with simvastati n 40 mg q pm Type 2 stephanie betes mellitus 72153595 E11.9 cont with metformin 1000 mg bid and glipizide 5 mg bid, check blood sugar daily, needs labs checked and plan based on results Liver enzy mes level above reference range 582554491 R74.8 Rheumatoid factor detected 317053197 R76.0 Mixed anxi ety and depressive disorder 370354761 F41.8 starting wellbutrin once a day for one week then increase to bid [id number] MD Willy Nagel (Adult Med) [address] [place] [address] 11/10/2017 16:06:40 11/17/2017 09:44:46 Mixed anxiety and depressive disorder 071555248 F41.8 cont wellbutrin bid Type 2 stephanie betes mellitus 01696642 E11.9 tasha to 7.9 form 10.1; cont with metformin 1000 mg bid and glipizide 5 mg bid, check blood sugar daily, needs labs checked and plan based on results, start on bydureon 2 mg q week-will bring in to have nurse show how to use Dyslipidemia 844715896 E 78.5 improving; cont with simvastati n 40 mg q pm Dyspnea 139560849 R06.02 needs pft done, will also start inhaled steroid daily and albuterol with spacer prn [id number] MD Willy Nagel (Adult Med) [address] [place] [address] 02/09/2018 11:30:52 02/10/2018 12:23:10 Mixed anxiety and depressive disorder 356292631 F41.8 cont wellbutrin bid Type 2 stephanie betes mellitus 06594966 E11.9 down to 7.9 form 10.1;cont with metformin 1000 mg bidglipizi de 5 mg bid,Jardia nce 10 mg qdcheck blood sugar daily, needs labs checked Dyslipidemia 799509760 E 78.5 improving; cont with simvastati n 40 mg q pm Dyspnea 990610755 R06.02 needs pft done, will also start inhaled steroid daily and albuterol with spacer prn Essential hypertension 41723686 I10 cont with lisinopril 20 mg qd and metoprolol ER 50 mg qd Morbid obesity 277049027 E66.01 advised low fat, low cholestero l, low carb diet, regular exercise and weight reduction. Acute sinusitis 95170004 J01.90 acute sinus pressure and colored drainage, will treat with abx as it s worsening over past 3 days [id number] MD Willy Nagel (Adult Med) [address] [place] [address] 07/05/2018 16:25:20 07/06/2018 09:22:18 Acute sinusitis 84917080 J01.90 acute sinus pressure and colored drainage, will treat with abx as it is worsening over past several days Essential hypertension 79221140 I10 cont with lisinopril 20 mg qd and metoprolol ER 50 mg qd Mixed anxi ety and depressive disorder 036573667 F41.8 cont wellbutrin bid Type 2 stephanie betes mellitus 51631225 E11.9 a1c improved at 7.3, still not to goal, will try again to get byetta approved.c ont with metformin 1000 mg bidglipizi de 5 mg bid,Jardia nce 10 mg qdcheck blood sugar daily, Dyslipidemia 498875882 E 78.5 improving; cont with simvastati n 40 mg q pm Morbid obesity 295246783 E66.01 advised low fat, low cholestero l, low carb diet, regular exercise and weight reduction. Wheezing 53278229 R06.2 increased wheezing bilaterall y, start medrol dose pack; increase inhaler use as well [id number] MD Willy Nagel (Adult Med) [address] [place] [address] 12/05/2018 15:59:35 12/06/2018 12:44:13 Essential hypertension 22006701 I10 cont with lisinopril 20 mg qd and metoprolol ER 50 mg qd Mixed anxi ety and depressive disorder 776456446 F41.8 pt stopped wellbutrin , increased mood swings and hot flashes, will start on citalopram ,dwp r/b/se including increased risk of suicide Dyslipidemia 336043240 E 78.5 taking simvastati n 40 mg q pm, need lab rechecked Gastroesop hageal reflux disease 513678129 K21.9 takes OTC prilosec Tobacco de pendence syndrome 75236566 F17.200 Smoking cessation encouraged . Type 2 stephanie betes mellitus 75195221 E11.9 a1c last was 7.3, needs recheckedc ont with metformin 1000 mg bidglipizi de 5 mg bid,Jardia nce 10 mg qdcheck blood sugar daily, Morbid obesity 317306354 E66.01 advised low fat, low cholestero l, low carb diet, regular exercise and weight reduction. Infection of tooth 93546 8007 K04.7 caries in left upper molars, pain radiation to eye/ear, will treat with abx, dwp to f/u with dentist, call dental school to get on list [id number] MD Willy Nagel (Adult Med) [address] [place] [address] 05/15/2019 09:29:44 05/16/2019 12:48:33 Type 2 diabetes mellitus 72547692 E11.9 a1c 8.2 in February 2019cont with metformin 1000 mg bidglipizi de 5 mg bid,check blood sugar daily, Essential hypertension 99561153 I10 cont with lisinopril 20 mg qd and metoprolol ER 50 mg qd Mixed anxi ety and depressive disorder 019836874 F41.8 pt stopped wellbutrin pt stopped citalopram ,dwp r/b/se including increased risk of suicide Dyslipidemia 969656947 E 78.5 taking simvastati n 40 mg q pm, ldl checked by cardiology Gastroesop hageal reflux disease 095222154 K21.9 takes OTC prilosec Tobacco de pendence syndrome 89030448 F17.200 Smoking cessation encouraged . Morbid obesity 812744377 E66.01 advised low fat, low cholestero l, low carb diet, regular exercise and weight reduction. Chronic ob structive pulmonary disease 52688351 J44.9 refill ventolin inhaler for prn use Acute sinusitis 79366932 J01.90 acute sinus pressure and colored drainage, will treat with abx as it is worsening over past several days Severe dry skin 06085194 2 L85.3 hands, dwp reduce alcohol gel or other harsh hand sanitizers , increase lotion, avoid dye or scent [id number] MD Willy Nagel (Adult Med) [address] [address] [place] [address] 08/14/2019 10:08:47 08/15/2019 09:43:41 Type 2 diabetes mellitus 41881742 E11.9 a1c 8.2 in February 2019, now 10.2cont with metformin 1000 mg bidglipizi de 5 mg bid,adding ozempic per [facility] formulary for qwkcheck blood sugar daily, Mixed anxi ety and depressive disorder 037070297 F41.8 pt stopped wellbutrin pt stopped citalopram ,dwp r/b/se including increased risk of suicide Essential hypertension 46837359 I10 cont with lisinopril 20 mg qd and metoprolol ER 50 mg qd Dyslipidemia 258142304 E 78.5 taking simvastati n 40 mg q pm, ldl checked by cardiology Gastroesop hageal reflux disease 933331107 K21.9 takes OTC prilosec Tobacco de pendence syndrome 04644169 F17.200 Smoking cessation encouraged . Morbid obesity 401947806 E66.01 advised low fat, low cholestero l, low carb diet, regular exercise and weight reduction. pt inquired about phentermin e, dwp only if cardiology sends fax stating ok with them to use given her recent hx Administra tion of influenza vaccine 24716971 Z23 cdc handout providedha d reaction (prolonged soreness) to pneumonia shot, not flu [id number] MD Willy Nagel (Adult Med) [address] [place] [address] 01/17/2020 10:10:06 01/18/2020 08:14:35 Acute non-suppurative serous otitis media 192520845 H65.03 bilateral TM's with erythema and purulent middle ear fluid, left is ruptured, did one round z pack; start bactrim. Exposure t o Influenzavirus 390123478 Z20.828 daughter 4 months diagnosed with flu, Cough 77455406 R05 dwp to increase fluids, OTC cold med prn, rest, good handwashin g [id number] MD Willy Nagel (Adult Med) [address] [place] [address] 03/10/2020 08:46:58 03/11/2020 11:05:54 Upper respiratory infection 78852885 J06.9 wheezing and coughing and ear pain again, pt prefers to have amox Wound of skin 807343856 T14.8XXA left toes, dwp cont to monitor and apply rx as directed Fungal inf ection by site 382082377 B49 left toes, dwp cont to monitor and apply rx as directed Essential hypertension 47324580 I10 cont with lisinopril 20 mg qd and metoprolol ER 50 mg qd Type 2 stephanie betes mellitus 09523768 E11.9 a1c 8.2 in February 2019, now 10.2check blood sugar daily, cont with metformin 1000 mg bidglipizi de 5 mg bid,start jardiance 10 mg qd Candidiasis of vagina 72 007969 B37.3 increased vaginal yeast infections [id number] MD Willy Nagel (Adult Med) [address] [place] [address] 07/24/2020 08:23:48 07/29/2020 14:47:24 Essential hypertension 29342302 I10 cont with lisinopril 20 mg qd and metoprolol ER 50 mg qd Type 2 stephanie betes mellitus 19946232 E11.9 a1c 8.2 in February 2019, now 10.2check blood sugar daily, cont with metformin 1000 mg bidglipizi de 5 mg bid,start jardiance 10 mg qd Mixed anxi ety and depressive disorder 929473874 F41.8 pt stopped wellbutrin pt stopped citalopram ,dwp r/b/se including increased risk of suicidedwp self care and meditation Morbid obesity 148854137 E66.01 advised low fat, low cholestero l, low carb diet, regular exercise and weight reduction. pt inquired about phentermin e, dwp only if cardiology sends fax stating ok with them to use given her recent hx Tobacco de pendence syndrome 71132295 F17.200 Smoking cessation encouraged . Gastroesop hageal reflux disease 401365425 K21.9 takes OTC prilosec Dyslipidemia 688698679 E 78.5 taking simvastati n 40 mg q pm, ldl checked by cardiology Forgetful 38494350 R41.3 dwp self care, anxiety, and labs needed, increase water intake, journal Screening for malignant neoplasm of colon 664609721 Z12.11 Allergic rhinitis 200025 04 J30.9 resume antihistam ine and nasal steroid [id number] MD Willy Nagel (Adult Med) [address] [place] [address] 09/17/2020 14:26:28 09/18/2020 13:07:49 Screening for malignant neoplasm of colon 873047029 Z12.11 DWP cologuard Acute sinusitis 80523200 J01.90 acute sinus pressure and colored drainage, will treat with abx as it is worsening over past several days Candidiasis of vagina 72 694711 B37.3 increased vaginal yeast infections [id number] MD Willy Nagel (Adult Med) [address] [place] [address] 12/15/2020 08:37:56 12/16/2020 10:48:20 Essential hypertension 23892563 I10 cont with lisinopril 20 mg qd and metoprolol ER 50 mg qd Type 2 stephanie betes mellitus 41230088 E11.9 a1c 8.2 in February 2019, now 10.2check blood sugar daily, cont with metformin 1000 mg bidglipizi de 5 mg bid,start jardiance 10 mg qd Mixed anxi ety and depressive disorder 163486064 F41.8 pt stopped wellbutrin pt stopped citalopram ,dwp r/b/se including increased risk of suicidedwp self care and meditation Morbid obesity 051135379 E66.01 advised low fat, low cholestero l, low carb diet, regular exercise and weight reduction. pt inquired about phentermin e, dwp only if cardiology sends fax stating ok with them to use given her recent hx Tobacco de pendence syndrome 15451342 F17.200 Smoking cessation encouraged . Gastroesop hageal reflux disease 427613442 K21.9 takes OTC prilosec Dyslipidemia 724431850 E 78.5 taking simvastati n 40 mg q pm, ldl checked by cardiology Forgetful 32174649 R41.3 dwp self care, anxiety, and labs needed, increase water intake, journal-st ill pending labs Allergic rhinitis 134743 04 J30.9 resume antihistam ine and nasal steroid Candidiasis of vagina 72 071852 B37.3 increased vaginal yeast infections [id number] Josue Colon MD [facility] [address] [facility] [address] [facility] [address] [place] [address] [place] [address] 02/26/2021 11:04:12 02/27/2021 12:21:34 Administration of SARS-CoV-2 antigen vaccine 241022569 Z23 [id number] MD Willy Nagel (Adult Med) [address] [place] [address] [place] [address] 03/05/2021 08:04:14 03/06/2021 14:04:38 Acute sinusitis 38135675 J01.90 acute sinus pressure and colored drainage, will treat with abx as it is worsening over past several days Postmenopa usal bleeding 67072227 N95.0 last period was 3 Summer's ago, this episode has been 3 days of heavy clots and cramping Wheezing 02289528 R06.2 increased wheezing bilaterall y, start medrol dose pack; increase inhaler use as well [id number] MD Willy Walls (FRESH FOOD MANAGER) [address] [place] [address] [place] [address] 03/10/2021 08:43:25 03/11/2021 10:06:34 Postmenopausal bleeding 86390494 N95.0 Risk of endometria l CA discussed. Recommenda tion made for EMB and EMB procedure d/w pt. Pt. to schedule EMB. 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 Pelvic US ordered to evaluate EMC Screening for malignant neoplasm of breast 354767715 Z12.39 Pt. has never had a mammogram. Mammogram ordered. Screening for malignant neoplasm of colon 280213340 Z12.11 Pt. doing mail-in kits. Gynecologi c examination 45155534 Z01.419 Normal exam except morbid obesity Body mass index 40+ - severely obese 234189415 Z68.43 Nutrition and exercise discussed. Cigarette smoker 9632653 7 F17.210 Cessation discussed. Pt. advised to decrease by one cigarette per day each month. Pt. agreeable. [id number] MD [facility] ([facility]NA[facility] [address] [place] [address] [place] [address] 04/08/2021 08:21:41 04/13/2021 05:34:29 Endometrium thickened [id number] R93.89 US shows EMC = 8 mm, dwp. Recommenda tion made for EMB and EMB procedure d/w pt. Pt. expressed understand ing and will schedule appt. [id number] MD [facility]NA[facility] [address] [place] [address] [place] [address] 4 04/14/2021 15:48:10 04/16/2021 09:38:42 Endometrium thickened 791725978 R93.89 US shows EMC = 8 mm, [...] one week for results. Lesion of vulva 73152830 6 N90.89 Need for wedge resection d/w pt. Will schedule according to pt.'s schedule. [id number] MD Willy Walls (FRESH FOOD MANAGER) [address] [place] [address] 04/21/2021 10:04:37 04/21/2021 20:01:06 Endometrium thickened 809486184 R93.89 EMB was beingn, dwp. Pt. has not had an additional bleeding. Pt. reassured. [id number] MD Willy Nagel (Adult Med) [address] [place] [address] 05/29/2021 14:19:39 06/02/2021 08:21:30 Acute sinusitis 73206159 J01.90 acute sinus pressure and colored drainage, will treat with abx as it is worsening over past several days, cont flonase [id number] MD Willy Nagel (Adult Med) [address] [place] [address] 09/04/2021 11:50:16 09/09/2021 06:56:18 Mixed anxiety and depressive disorder 989432658 F41.8 pt stopped wellbutrin pt stopped citalopram [...] ER for crises. Gastroesop hageal reflux disease 348485513 K21.9 takes OTC prilosec Dyslipidemia 535296206 E 78.5 taking simvastati n 40 mg q pm, ldl checked by cardiology Essential hypertension 80498902 I10 cont with lisinopril 20 mg qd and metoprolol ER 50 mg qd Type 2 stephanie betes mellitus 05968865 E11.9 a1c 8.2 in February 2019, now 10.2check blood sugar daily,cont with metformin 1000 mg bidglipizi de 5 mg bid,jardia nce 10 mg qd Administra tion of influenza vaccine 15684485 Z23 cdc handout providedha d reaction (prolonged soreness) to pneumonia shot, not flu Pain of mu ltiple joints 53695356 M25.50 various joint pains, worse in am and with weather changes, father has hx of joint pain Screening for malignant neoplasm of colon 979603039 Z12.11 DWP cologuard Splits in nails 79476952 1 L60.3 Abdominal pain 06468935 R10.9 large hernia causing pain, will get US, may need referral Tobacco de pendence syndrome 37535615 F17.200 Smoking cessation encouraged . Morbid obesity 562568096 E66.01 advised low fat, low cholestero l, low carb diet, regular exercise and weight reduction. pt inquired about phentermin e, dwp only if cardiology sends fax stating ok with them to use given her recent hx [id number] MD Willy Nagel (Adult Med) [address] [place] [address] [place] [address] 10/19/2021 10:44:04 10/20/2021 13:26:31 Essential hypertension 93992507 I10 cont with lisinopril 20 mg qd and metoprolol ER 50 mg qd Mixed anxi ety and depressive disorder 733023684 F41.8 pt stopped wellbutrin pt stopped citalopram ,dwp self care and meditation tolerating effexor, 37.5 mg will increase to 75 mgR/B/A/SE of antidepres angelika medication discussed such as gastrointe stinal s/e, mood irritabili ty, Suicidal ideation, risk of christy. Gastroesop hageal reflux disease 184504417 K21.9 takes OTC prilosec Tobacco de pendence syndrome 75542424 F17.200 Smoking cessation encouraged . Morbid obesity 140816051 E66.01 advised low fat, low cholestero l, low carb diet, regular exercise and weight reduction. pt inquired about phentermin e, dwp only if cardiology sends fax stating ok with them to use given her recent hx Acute maxi llary sinusitis 38116394 J01.00 sinus pressure with purulent drainage, start amox 500 mg TID x 10 days Candidiasis of vagina 72 183899 B37.3 increased vaginal yeast infections [id number] MD Willy Nagel (Adult Med) [address] [place] [address] 01/05/2022 10:18:42 01/06/2022 07:20:41 Mixed anxiety and depressive disorder 294554077 F41.8 pt stopped wellbutrin ,pt stopped citalopram ,dwp self care and meditation still feeling like she not 100% yettolerat ing effexor 75 mg, improved, no SE, will increase now to 150 mg R/B/A/SE of antidepres angelika medication discussed such as gastrointe stinal s/e, mood irritabili ty, Suicidal ideation, risk of christy. Essential hypertension 98635529 I10 cont with lisinopril 20 mg qd and metoprolol ER 50 mg qd Gastroesop hageal reflux disease 809564960 K21.9 takes OTC prilosec Tobacco de pendence syndrome 47811859 F17.200 Smoking cessation encouraged . Morbid obesity 806243441 E66.01 advised low fat, low cholestero l, low carb diet, regular exercise and weight reduction. pt inquired about phentermin e, dwp only if cardiology sends fax stating ok with them to use given her recent hx Type 2 stephanie betes mellitus 87457224 E11.9 a1c 8.2 in February 2019, last 10.2 today 8.1check blood sugar daily, having issues checkingco nt with metformin 1000 mg bidglipizi de 5 mg bid,jardia nce 10 mg qdpt would like continuous glucose monitoring system Impaired mobility 617392 05 Z74.09 pt having increasing ly difficulty with walking long distances with out having to stop for rest, cannot keep up with her family at times, concerns for falling as well, would benefit from motorized scooter which she is fully capable of self operating [id number] MD Willy Nagel (Adult Med) [address] [place] [address] 04/06/2022 10:19:26 04/07/2022 05:39:16 Mixed anxiety and depressive disorder 831683605 F41.8 pt stopped wellbutrin ,pt stopped citalopram ,dwp self care and meditation still feeling like she not 100% yettolerat ing effexor 75 mg, improved, no SE, will increase now to 150 mg R/B/A/SE of antidepres angelika medication discussed such as gastrointe stinal s/e, mood irritabili ty, Suicidal ideation, risk of christy. Type 2 stephanie betes mellitus 43633568 E11.9 a1c today 8.2check blood sugar daily, having issues checkingco nt with metformin 1000 mg bidglipizi de 5 mg bid,jardia nce 10 mg qdwill add rybelsus Essential hypertension 69393579 I10 cont with lisinopril 20 mg qd and metoprolol ER 50 mg qd Gastroesop hageal reflux disease 535788921 K21.9 takes OTC prilosec Tobacco de pendence syndrome 81157061 F17.200 Smoking cessation encouraged . Morbid obesity 113027841 E66.01 advised low fat, low cholestero l, low carb diet, regular exercise and weight reduction. pt inquired about phentermin e, dwp only if cardiology sends fax stating ok with them to use given her recent hx Strain of neck muscle 36 1358761 S16.1XXA tight neck w/tingling down shaw arms, dwp exercises, will send for imaging if not improving on own, may also need PT Impaired mobility 386815 05 Z74.09 pt having increasing ly difficulty with walking long distances with out having to stop for rest, cannot keep up with her family at times, concerns for falling as well, would benefit from motorized scooter which she is fully capable of self operating; [id number] MD Willy Nagel (Adult Med) [address] [place] [address] 04/29/2022 15:57:34 04/29/2022 22:43:21 Acute otitis media 1583457 H65.03 Shaw TM erythema and edema/bulg ingallergy to pcn not AMOX Type 2 stephanie betes mellitus 05945436 E11.9 a1c last 8.2check blood sugar daily, having issues checkingco nt with metformin 1000 mg bidglipizi de 5 mg bid,jardia nce 10 mg qdwill add rybelsus, still waiting to pick updwp diet changes and compliance with meds, r/b/se Candidiasis of vagina 72 552644 B37.3 increased vaginal yeast infections Morbid obesity 494010812 E66.01 advised low fat, low cholestero l, low carb diet, regular exercise and weight reduction. pt inquired about phentermin e, dwp only if cardiology sends fax stating ok with them to use given her recent hx [id number] MD Willy Nagel (Adult Med) [address] [place] [address] 07/07/2022 10:59:05 07/08/2022 10:15:20 Type 2 diabetes mellitus 76708807 E11.9 a1c last 8.2check blood sugar daily, having issues checkingco nt with metformin 1000 mg bidglipizi de 5 mg bid,jardia nce 10 mg qdwill add rybelsus 3 mg,a1c increased today, dwp work on compliance with meds and dietdwp diet changes and compliance with meds, r/b/se Candidiasis of vagina 72 522796 B37.3 increased vaginal yeast infections Morbid obesity 673051223 E66.01 advised low fat, low cholestero l, low carb diet, regular exercise and weight reduction. pt inquired about phentermin e, dwp only if cardiology sends fax stating ok with them to use given her recent hx Posterior rhinorrhea 758 19449 R09.82 cont flonase and zyrtec, still has a lot of drainage, will send singulair Tobacco user 140553722 Z 72.0 Smoking cessation encouraged . [id number] MD Willy Nagel (Adult Med) [address] [place] [address] 10/07/2022 10:54:59 10/12/2022 11:14:56 Type 2 diabetes mellitus 97127636 E11.9 a1c last 8.9check blood sugar daily, having issues checkingco nt with metformin 1000 mg bidglipizi de 5 mg bid,jardia nce 10 mg qdrybelsus 3 mg,a1c increased today,dwp work on compliance with meds and diet Candidiasis of vagina 72 866963 B37.31 increased vaginal yeast infections Morbid obesity 424325580 E66.01 advised low fat, low cholestero l, low carb diet, regular exercise and weight reduction. pt inquired about phentermin e, dwp only if cardiology sends fax stating ok with them to use given her recent hx Posterior rhinorrhea 758 91978 R09.82 cont flonase and zyrtec, still has a lot of drainage, will send romeulair Tobacco user 108919030 Z 72.0 Smoking cessation encouraged . Acute maxi llary sinusitis 91955986 J01.00 sinus pressure with purulent drainage, UC gave amox which cleared it up and then it came back after she stopped abx, will send doxy Bilateral earache 473566 003 H92.03 chronic aom, and ome, canals inflamed, will start drops as well and po abx, will also refer to ent Mixed anxi ety and depressive disorder 314660306 F41.8 pt stopped wellbutrin ,pt stopped citalopram ,dwp self care and meditation still feeling like she not 100% yettolerat ing effexor 75 mg, improved, no SE, will increase now to 150 mg R/B/A/SE of antidepres angelika medication discussed such as gastrointe stinal s/e, mood irritabili ty, Suicidal ideation, risk of christy. [id number] MD Willy Pedersen (Adult Med) [address] [place] [address] 11/02/2022 11:32:24 11/04/2022 17:04:14 Chronic otitis media 39424674 H66.91 keep ear dry follow up after audio [id number] MD Willy Nagel (Adult Med) [address] [place] [address] 12/28/2022 11:26:38 01/03/2023 09:56:37 Mixed anxiety and depressive disorder 482842741 F41.8 pt stopped wellbutrin ,pt stopped citalopram ,dwp self care and meditation was tolerating effexor 150 mg, but now feels like it stopped working; will wean off med, R/B/A/SE of antidepres angelika medication discussed such as gastrointe stinal s/e, mood irritabili ty, Suicidal ideation, risk of christy. Essential hypertension 40472868 I10 cont with lisinopril 20 mg qd- has now developed a cough, will change to losartan 25 mg;cont metoprolol ER 50 mg qd Morbid obesity 145705531 E66.01 advised low fat, low cholestero l, low carb diet, regular exercise and weight reduction. Smoker 45300460 F17.200 Smoking cessation encouraged . Chronic ob structive pulmonary disease 81688656 J44.9 refill ventolin inhaler for prn usestart control inhaler, symbicort Candidiasis of vagina 72 428500 B37.31 increased vaginal yeast infections [id number] MD Willy Nagel (Adult Med) [address] [place] [address] 01/11/2023 15:47:11 01/12/2023 14:14:11 Acute exacerbation of chronic obstructive pulmonary disease 666293953 J44.1 acute flare r/t respirator y infection, dwp medrol dose pack and albuterol prn and start doxy Smoker 80584383 F17.200 Smoking cessation encouraged . Obesity 811862484 E66.9 advised low fat, low cholestero l diet, regular exercise and weight reduction. Mixed anxi ety and depressive disorder 244808792 F41.8 pt stopped wellbutrin ,pt stopped citalopram ,dwp self care and meditation was tolerating effexor 150 mg, but now feels like it stopped working;monsalve s been weaning down and doing good now on 37.5mg R/B/A/SE of antidepres angelika medication discussed such as gastrointe stinal s/e, mood irritabili ty, Suicidal ideation, risk of christy. Essential hypertension 65011132 I10 cont with lisinopril 20 mg qd- has now developed a cough, will change to losartan 25 mg; improved;c ont metoprolol ER 50 mg qd and losartan 25 mg [id number] MD Willy Pedersen (Adult Med) [address] [place] [address] 02/15/2023 11:52:35 02/17/2023 16:17:38 Acute sinusitis 10170446 J01.90 follow up in two weeks Chronic ot itis externa 35713508 H60.61 [id number] MD Willy Pedersen (Adult Med) [address] [place] [address] 03/15/2023 13:36:11 03/17/2023 08:40:19 Chronic serous otitis media of right ear 920665562 H65.21 [id number] MD Willy Nagel (Adult Med) [address] [place] [address] 04/21/2023 10:50:22 04/25/2023 10:18:54 Mixed anxiety and depressive disorder 291482391 F41.8 pt stopped wellbutrin ,pt stopped citalopram ,dwp self care and meditation was tolerating effexor 150 mg, but now feels like it stopped working; will wean off med, R/B/A/SE of antidepres angelika medication discussed such as gastrointe stinal s/e, mood irritabili ty, Suicidal ideation, risk of christy. Essential hypertension 49238775 I10 no cough with losartan 25 mg; continueco nt metoprolol ER 50 mg qd Morbid obesity 675236007 E66.01 advised low fat, low cholestero l, low carb diet, regular exercise and weight reduction. Smoker 45431140 F17.200 Smoking cessation encouraged . Chronic ob structive pulmonary disease 51373137 J44.9 refill ventolin inhaler for prn usestart control inhaler, symbicort Type 2 stephanie betes mellitus 50311228 E11.9 a1c last 8.9,check blood sugar daily, having issues checkingco nt with metformin 1000 mg bidglipizi de 5 mg bid,jardia nce 10 mg qdnot able to take rybelsus 3 mg, will change to injectiona 1c increased today,dwp work on compliance with meds and diet Dyslipidemia 075811496 E 78.5 taking simvastati n 40 mg q pm, ldl checked by cardiology Urinary incontinence 165 058805 R32 has gradually increased and loses a large amount of urine, using period panties with a pad to absorb; Edema of l ower extremity 726322255 R60.0 left ankle only; dwp monitoring symptoms [id number] MD Willy Nagel (Adult Med) [address] [place] [address] 06/06/2023 11:39:24 06/07/2023 10:30:38 Candidiasis of vagina 21330844 B37.31 increased vaginal yeast infections Type 2 stephanie betes mellitus 22233855 E11.9 a1c last 10.00 [facility] sugar daily, having issues checkingco nt with metformin 1000 mg bidglipizi de 5 mg bid,jardia nce 10 mg qdnot able to take rybelsus 3 mg, will change to injection- trulicity- increase to 1.5mgdwp work on compliance with meds and diet Morbid obesity 371624111 E66.01 advised low fat, low cholestero l, low carb diet, regular exercise and weight reduction. [id number] MD Willy Nagel (Adult Med) [address] [address] 07/05/2023 11:13:09 07/06/2023 13:13:15 Morbid obesity 654138979 E66.01 advised low fat, low cholestero l, low carb diet, regular exercise and weight reduction. Type 2 stephanie betes mellitus 60088638 E11.9 a1c last 10.00 on 04/[facility] blood sugar daily, having issues checkingco nt with metformin 1000 mg bidglipizi de 5 mg bid,jardia nce 10 mg qdnot able to take rybelsus 3 mg, will change to injection- trulicity- increase to 3mgdwp work on compliance with meds and diet Smoker 16224725 F17.200 Smoking cessation encouraged . Candidiasis of vagina 72 765641 B37.31 increased vaginal yeast infections [id number] MD Willy Nagel (Adult Med) [address] [facility] [address] [place] [address] 08/18/2023 09:06:53 08/21/2023 11:17:38 Candidiasis of vagina 18440324 B37.31 increased vaginal yeast infections Type 2 stephanie betes mellitus 91713986 E11.9 a1c last 10.00 on 04/21/23 today is 6.8!!!!!!c heck blood sugar daily, having issues checkingco nt with metformin 1000 mg bidglipizi de 5 mg bid, will STOP to avoid hypoglycem ic eventsjard iance 10 mg qdtolerati ng-trulici ty-increas e to 4.5 mgdwp work on compliance with meds and diet Essential hypertension 61451606 I10 no cough with losartan 25 mg; continueco nt metoprolol ER 50 mg qd Morbid obesity 285096273 E66.01 advised low fat, low cholestero l, low carb diet, regular exercise and weight reduction. Acute sinusitis 15771883 J01.90 acute sinus pressure and colored drainage, will treat with abx as it is worsening over past several days, cont flonase, ok to take regular amox just not PCN Screening for malignant neoplasm of colon 377495906 Z12.11 DWP cologuard Smoker 91282025 F17.200 Smoking cessation encouraged . [id number] MD Willy MAE (FRESH FOOD MANAGER) [address] [place] [address] 02/01/2024 12:01:22 02/17/2024 09:54:25 Dysuria 35620521 R30.0 - Reviewed dipstick result with patient- Will treat empiricall y with Augmentin- Urine culture sent; will adjust treatment as indicated by results Acute otitis media 31862 03 H66.91 - Will treat with 7-day course of Augmentin- Return to clinic if not improved after antibiotic treatment- Recommende d following up with ENT Candidiasis of vagina 72 644009 B37.31 - Refilled fluconazol e to empiricall y treat antibiotic -related yeast infections Glycosuria 74960007 R81 - Patient with large glucose on urine dipstick, suggestive of poorly controlled diabetes- Recommende d following up with PCP about diabetes management Positive s creening for depression on PHQ-9 (Patient Health Questionnaire 9) 0475412779 59063 Z13.31 - Positive PHQ-9 with negative PHQ-2- Has diagnosis of anxiety, depression on problem list- Patient to follow up with PCP for further management [id number] MD Willy Nagel (Adult Med) [address] [place] [address] 02/09/2024 11:43:54 02/10/2024 15:12:22 Tobacco dependence syndrome 80068453 F17.200 Smoking cessation encouraged . Hepatomegaly 72012794 R1 6.0 enlarged and fatty liver, would like to refer to GI for further eval and treatment, Type 2 stephanie betes mellitus 88079338 E11.9 a1c last 08/18/23- 6.8; today is [...] sero us otitis media of bilateral ears 2099628227 503565 H65.03 just finished augmentin and still Shaw TM erythema and edema/bulg ing, start cefdinir, follow up with ENT Morbid obesity 322963094 E66.01 advised low fat, low cholestero l, low carb diet, regular exercise and weight reduction. Chronic ob structive pulmonary disease 29130396 J44.9 refill ventolin inhaler for prn usestart control inhaler, symbicort Mixed anxi ety and depressive disorder 690700911 F41.8 pt stopped wellbutrin , citalopram and effexordwp self care and meditation Essential hypertension 88038785 I10 no cough with losartan 25 mg; continueco nt metoprolol ER 50 mg qd Cervical radiculopathy 87750962 M54.12 dwp need to get copy of CT, could be pinched nerve, recommende d exercise/s tretching, can refer to PT if needed Candidiasis of vagina 72 795591 B37.31 increased vaginal yeast infections [id number] MD Willy Pedersen (Adult Med) [address] [place] [address] 02/14/2024 11:43:55 02/14/2024 19:30:38 Chronic rhinitis 66379494 J31.0 follow up one month Acute otitis media 02612 03 H66.91 scope ear if not improving [id number] MD Willy Machado (Adult Med) [address] [place] [address] 04/19/2024 10:35:08 04/20/2024 12:10:23 Chronic otitis media 98948249 H66.90 - pt to see ENT-avoid q tip [id number] MD Willy Pedersen (Adult Med) [address] [place] [address] 05/01/2024 10:52:14 05/02/2024 16:11:53 Chronic serous otitis media of right ear 850404832 H65.21 follow up at [facility] for exam under the microscope [id number] MD Willy Nagel (Adult Med) [address] [place] [address] 05/14/2024 09:49:25 05/15/2024 16:11:21 Dysuria 47799294 R30.9 urine dip negative, will send for culture and notify pt if abx needed, dwp to increase fluids and RTO if increase in pain or fever or other changes occur. Type 2 stephanie betes mellitus 82273084 E11.9 a1c: 08/18/23- 6.8, 02/09/24- 7.3, 05/14/24- 8.1check blood sugar daily, having issues checkingco nt with metformin 1000 mg bidglipizi de 5 mg bid, will STOP to avoid hypoglycem ic eventsjard iance 10 mg qdtolerati ng-trulici ty-cont 4.5 mg, out for due to shortage- will try to get ozempicdwp work on compliance with meds and diet Essential hypertension 02376811 I10 no cough with losartan 25 mg; continueco nt metoprolol ER 50 mg qd Gastroesop hageal reflux disease 109835334 K21.9 takes OTC prilosecco nt with GI, has upcoming scopes planned Dyslipidemia 466730990 E 78.5 taking simvastati n 40 mg q pm, ldl checked by cardiology Morbid obesity 520518281 E66.01 advised low fat, low cholestero l, low carb diet, regular exercise and weight reduction. Chronic ob structive pulmonary disease 80841965 J44.9 refill ventolin inhaler for prn usestart control inhaler, symbicort Tobacco user 482946644 Z 72.0 Smoking cessation encouraged . Urinary incontinence 165 756667 R32 has gradually increased and loses a large amount of urine, using period panties with a pad to absorb;con t oxybutynin , will increase dose to 5 mg bid [id number] Asif Baez MD [facility] [address] [place] [address] 05/14/2024 11:41:02 05/16/2024 12:50:27 Chronic otitis externa of right external auditory canal 1453705242 858711 H60.61 follow back in a month keep ear dry [id number] MD Willy Nagel (Adult Med) [address] [place] [address] 08/16/2024 10:16:24 08/21/2024 09:26:30 Flank pain 453907979 R10.9 urine dip negative, will send for culture and notify pt if abx needed, dwp to increase fluids and RTO if increase in pain or fever or other changes occur. Type 2 stephanie betes mellitus 89867484 E11.9 a1c: 3- 6.8, 4- 7.3, 4- 8. -7.5check blood sugar daily, having issues checkingco nt with metformin 1000 mg bidglipizi de 5 mg bid, will STOP to avoid hypoglycem ic eventsjard iance 10 mg qdtolerati ng-trulici ty-cont titrating up to 4.5 mg,dwp work on compliance with meds and diet Gastroesop hageal reflux disease 478275860 K21.9 takes OTC prilosecco nt with GI, has upcoming scopes planned Essential hypertension 75334199 I10 no cough with losartan 25 mg; continueco nt metoprolol ER 50 mg qd Obesity 656712498 E66.8 advised low fat, low cholestero l diet, regular exercise and weight reduction. [id number] MD Willy Nagel (Adult Med) [address] [place] [address] 11/19/2024 11:24:34 11/20/2024 08:41:24 Type 2 diabetes mellitus 12536064 E11.9 a1c: 3- 6.8, 4- 7.3, 4- 8. -7.-7.2chec k blood sugar daily, having issues checkingco nt with metformin 1000 mg bidglipizi de 5 mg bid, will STOP to avoid hypoglycem ic eventsjard iance 10 mg qdtolerati ng-trulici ty-cont titrating up to 4.5 mg,dwp work on compliance with meds and diet Gastroesop hageal reflux disease 972194742 K21.9 takes OTC prilosecco nt with GI, has upcoming scopes planned Essential hypertension 93393324 I10 no cough with losartan 25 mg; continueco nt metoprolol ER 50 mg qd Obesity 031675196 E66.9 advised low fat, low cholestero l diet, regular exercise and weight reduction. Screening mammography of bilateral breasts 9636892952 33966 Z12.31 Immunization advised 310 405477 Z71.9 Chronic rhinitis 1692901 6 J31.0 post nasal drainage [id number] MD Willy Nagel (Adult Med) [address] [place] [address] 12/26/2024 15:33:02 01/02/2025 18:03:16 Cough 64882209 R05.9 covid and flu negTessalo n perles to help with cough Mixed anxi ety and depressive disorder 028097946 F41.8 pt stopped wellbutrin , citalopram and effexordwp self care and meditation declines med or referral today Respiratory crackles 484 34241 R09.89 shaw lower lobeswill start abx Obesity 415818532 E66.9 advised low fat, low cholestero l diet, regular exercise and weight reduction. [id number] MD Willy Nagel (Adult Med) [address] [place] [address] [place] [address] 01/31/2025 14:24:47 02/01/2025 08:51:28 Cough [id number] R05.9 advised mucinex to help get phlegm out Respiratory crackles [id number] R09.89 shaw lower lobesjust finished doxy and did not clear upwill send for xray Obesity [id number] E66.9 advised low fat, low cholestero l diet, regular exercise and weight reduction. Chronic ob structive pulmonary disease [id number] J44.9 -- ventolin inhaler for prn use--contr ol inhaler, symbicort dwp possible pulmonary referral if not improved, will get cxr [id number] MD [facility] [address] [place] [address] 02/12/2025 10:39:33 02/26/2025 15:10:35 Chronic obstructive pulmonary disease [id number] J44.9 -patient agreeable to renewal of COPD treatment including albuterol p.r.n. and Symbicort b.i.d. daily inhaler-ca re makeda mora provided-p atient to follow up with PCP for further management Acute otitis media 52751 03 H66.91 -patient presentati on consistent with acute otitis media-carlie ent agreeable to treatment with cefdinir 300 mg b.i.d. for 7 days. ART THERAPY CERTIFIED SUPERVISOR advised patient to consume OTC probiotic or yogurt while on antibiotic therapy.-p atient to follow up in clinic if symptoms worsen or do not improve-ER precaution s advised [id number] Shmuel Thakkar MD [facility] [place] [facility] [address] [place] [address] 03/05/2025 14:29:19 03/08/2025 12:49:27 Smoker [id number] F17.200 Nicotine cessation for cardiovasc ular risk reduction reinforced . Palpitations 42998181 R0 0.2 Obtain extended yarder engineer. Encouraged hydration, limiting caffeine/a lcohol, increasing dietary intake of potassium/ magnesium. Red flag symptoms in the interim reinforced . 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 Prescribe p.r.n. Lasix with usage reviewed. Low-sodium diet, regular weight monitoring and ambulatory blood pressure monitoring reinforced . Morbid obesity 044408484 E66.01 Diet/exerc ise reinforced for weight management and cardiovasc ular risk reduction. 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 Red flag symptoms to seek ER attention discussed. 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 This will also help delineate the exact course of the left coronary artery to consider surgical evaluation in case of intra-tatiana rial course. [id number] CheryMD Willy [facility] (Adult Med) [address] [place] [address] 03/28/2025 08:12:35 04/04/2025 09:36:49 Chronic obstructive pulmonary disease 59023929 J44.9 -- ventolin inhaler for prn use--contr ol inhaler, symbicortn ow also following with Cardiology , undergoing testing at this time, may still need referral to Pulmonary Type 2 stephanie betes mellitus [id number] E11.9 a1c: 3- 6.8, 4- 7.3, 4- 8./ -7.-7.25/-6.9chec k blood sugar daily, having issues checkingco nt with metformin 1000 mg- stopping due to pt concernedg lipizide 5 mg bid, will STOP to avoid hypoglycem ic eventsjard iance 10 mg qd, increasing since stopping metformint olerating- trulicity- 4.5 mg,dwp work on compliance with meds and diet Obese class III [id number] 5 E66.813 advised low fat, low cholestero l, low carb diet, regular exercise and weight reduction. Candidiasis of vagina 72 806494 B37.31 increased vaginal yeast infections related to antibiotic use, patient is also diabetic Panniculitis 30837063 M7 9.3 increased rash with skin and skin contact, under breast, under belly, thighsskin hygiene discussed, we will also send nystatin cream Essential hypertension 66591281 I10 stable today, now seeing Cardiology , continue as planned Dyslipidemia [id number] E 78.5 taking simvastati n 40 mg q pm, ldl checked by cardiology Gastroesop hageal reflux disease 064476342 K21.9 takes OTC prilosecco nt with GI Tobacco de pendence syndrome 22305337 F17.200 Smoking cessation encouraged . [id number] Shmuel Thakkar MD [facility] [place] [facility] [address] [place] [address] 04/23/2025 14:30:46 04/26/2025 12:58:27 Obese class III [id number] E66.813 Ongoing efforts at diet/exerc ise reinforced . 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 Continue furosemide 20 mg daily PRN. Change potassium chloride to 20 mEq daily. Clinically euvolemic. LVEF 40% on recent coronary CTA with fatty metaplasia and subendocar dial distributi on related to prior myocarditi s. Coronary arteriosclerosis 20464233 I25.118 Mild-moder ate CAD with no high-grade stenosis. 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 Recommend aspirin 81 mg daily. Discontinu e simvastati n and initiate atorvastat in 40 mg daily to achieve LDL preferably under 70. Check follow-up CMP and lipid panel. Palpitations 50154090 R0 0.2 No significan t arrhythmia s on extended yarder engineer. Symptoms improved. Lifestyle modificati ons with magnesium use over the counter recommende d. Smoker 22346523 F17.200 Nicotine cessation for cardiovasc ular risk reduction reinforced . Declines need for pharmacoth erapy. Preoperati ve procedure [id number] Z01.810 May proceed at an acceptable cardiac risk for the low cardiac risk endoscopic procedure under choice anesthesia . Aspirin can be held for 5-7 days prior and resume as soon as possible postproced ure. Health Concerns Section Related Observation LastModified by Organization Detai ls LastModified Time None Recorded Concern Status LastModified by Organization Details LastModified Time None Recorded Advance Directives Directive N: Payers Insurance Date Sequence Insurance Name Policy Number Policy Burgos Covered Member ID Burgos Member ID Guarantor Name 04/14/2021 SLIDING FEE SCHEDULE - DISCOUNT Candida Bales 03/07/2020 2 *SELF PAY* Al erich Bales 04/21/2025 1 [facility] (MEDICAID HMO) [id number] Candida Bales [id number] Candida Bales Notes Date Note Type Note Provider Name and Address Organization Details Recorded Time 02/01/20 25 text/htm l URI-green phlegm. states the abx helped some last month but then came back and down mucous is green congestion, sinus pain, wet cough Amita Johnson APN, RUBBER STAMP DIES INSPECTOR-C Attn: Accounting[address] [place], [address], [facility] 01/31/2025 16:06:54 02/13/20 text/htm l Patient presents to the clinic with acute complaint of cough. Patient is established with Amita PEREZ for primary care. Patient's past medical history [...] symptom management.-Reports symptoms of body aches, fatigue, cminx-mnmtzptmsz-qktzq thick sputum, sore throat, ear pain, sinus congestion, ear discharge from right ear.-Denies symptoms of fevers, nausea, vomiting, or diarrhea.-Denies any known sick contacts. MARYBEL SPRAGUE RUBBER STAMP DIES INSPECTOR- Attn: Accounting[address] [place], [address], [facility] 02/26/2025 07:07:39 03/05/20 text/htm l I had the pleasure of [...] by a review of EMR. Coronary CTA, 2014: No significant coronary atherosclerosis, left coronary artery arises anomalously from the right coronary artery and extends posteriorly between the ascending thoracic aorta and superior aspect of the left atrium Shmuel Thakkar MD Attn: Accounting,[address] [facility], [place], [address], [facility] 03/05/2025 15:32:14 03/28/20 25 text/htm l Diabetes [...] Amita Johnson APN, ERIKAC Attn: Accounting,[address] [facility], [place], [address], [facility] 03/28/2025 10:17:26 04/23/20 25 text/htm l HPI: Patient reports improvement in palpitations since last evaluation. She is taking furosemide p.r.n. but potassium daily. She denies any chest pain or pressure. Reports stable exertional fatigue. working on nicotine cessation. Has upcoming EGD. No presyncope or syncope. 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 Calcium score 150. Dilated cardiomyopathy with LVEF 40%, anomalous origin of the left coronary artery from right cusp with a benign retroaortic course. 12 lead EKG 02/18/2025: Images independently interpreted on [...] atrium Shmuel Thakkar MD Attn: Accounting[address] [place], [address], [facility] 04/23/2025 16:17:17 OBGyn Episode Ob Episode Information Episode Created Date Number of Fetuses Patient Bloodtype Patient rh Status Prepregnancy Weight lbs Domestic Partner Domestic Partner Phone Father Name Senior Microsoft Consultant Status 03/10/20 21 1 CLOSED Fetus Data First Name Last Name Admitted to NICU Weight (g) Sex Living Outcome Pediatric Complications Fetus ID Race Codes Race Delivery Type 2976.47 0704 F Full Term [address]19 Raad Calculation Initial Raad Date Initial Exam [...] Domestic Partner Domestic Partner Phone Father Name Senior [employer] Consultant Status 03/10/20 21 1 CLOSED Fetus Data First Name Last Name Admitted to NICU Weight (g) Sex Living Outcome Pediatric Complications Fetus ID Race Codes Race Delivery Type 2976.47 0704 F Full Term [address]14 Raad Calculation Initial Raad Date Initial Exam [...] Domestic Partner Domestic Partner Phone Father Name Senior [employer] Consultant Status 03/10/20 21 1 CLOSED Fetus Data First Name Last Name Admitted to NICU Weight (g) Sex Living Outcome Pediatric Complications Fetus ID Race Codes Race Delivery Type Ectopic 29764 Raad Calculation Initial Raad Date Initial Exam [...]
--- OUTSIDE RECORDS SUMMARY | 2025-05-03 01:04 | XMS_ITS | Clinical Summary ---
Author Organization [facility] Address [address] [place] [address] Phone Care Team Providers Care Driller Hand Name Role Phone Alyx, Amita JASON CNP Primary Care Provider [phone] Allergies Active Allergy Reactions Criticality Noted Date [...] needed for Cough. 6.7 g 4 Active oxyCODONE 5 MG CapsuleIndicat ions:Closed fracture of one rib of right side, initial encounter Take 1 Capsule by mouth every 4 hours as needed for Severe pain. 12 Capsule 5 Active HYDROcodone-ac etaminophen (NORCO) 5-325 MG TabletIndicati ons:Closed fracture of one rib of right side, initial encounter Take 1-2 Tablets by mouth every 4 hours as needed for Severe pain. 12 Tablet 5 04/26/20 25 Discontinu ed(Error) Encounters Date Type Department Care Team Description 05/02/[address] [facility] Central Scheduling [address] [place] [address] Lino Bergeron MD Hepatic cirrhosis, unspecified hepatic cirrhosis type, unspecified whether ascites present (HCC) (Primary Dx); Abnormal LFTs (liver function tests) 04/26/2025 10:03 PM CDT - 04/26/2025 11:09 PM CDT Emergency [facility] Emergency [address] [place] [address] Arnold Lew MD Closed fracture of one rib of right side, initial encounter Discharge Disposition: Discharged to home or Selfcare 04/26/2025 Travel 02/18/2025 6:55 PM CDT - 02/18/2025 10:12 PM CDT Emergency [facility] Emergency [address] [place] [address] Dereck Carrington MD Community acquired pneumonia Discharge Disposition: Discharged to home or Selfcare 02/18/2025 Travel 01/31/2025 2:25 PM CDT - 01/31/2025 11:59 PM CDT Hospital Encounter [facility] Diagnostic Radiology [address] [place] [address] Amita Wisdom APRN, CNP Discharge Disposition: Discharged to home or Selfcare 01/31/2025 Travel 01/31/[address] [facility] Central Scheduling [address] [place] [address] Amita Wisdom APRN, CNP Oth symptoms and signs involving the circ and resp systems (Primary Dx) from Last 3 Months Social History Tobacco Use Types Packs/Day Years Used Date Smoking Tobacco: Every Day Cigarettes Smokeless Tobacco: Never Tobacco Cessation:Ready to Q uit: Not Asked; Counseling Given: Not Answered Alcohol Use Standard Drinks/Week Comments Not Currently 0 (1 standard drink = 0.6 oz pur e alcohol) Comments No Sex and Gender Information Value Date Recorded Sex Assigned at Not on file Legal Sex Female 8:49 PM CDT Gender Identity Not on file Sexual Orientation Not on file Last Filed Vital Signs Vital Sign Reading Time Taken Comments Blood Pressure 144/98 04/26/2025 11:00 PM CDT Pulse 104 04/26/2025 11:00 PM CDT Temperature 36.6 C (97.8 F) 04/26/2025 10:00 PM CDT Respiratory Rate 20 04/26/2025 11:00 PM CDT Oxygen Saturation 99% 04/26/2025 11:00 PM CDT Inhaled Oxygen Concentration - - Weight 102.1 kg (225 lb) 04/26/2025 10:00 PM CDT Height 154.9 cm (5' 1) 04/26/2025 10:00 PM CDT Body Mass Index 42.51 04/26/2025 10:00 PM CDT Plan of Treatment Upcoming Encounters Date Type Department Care Team (Late st Contact Info) Description 06/04/2025 9:00 AM CDT Appointment [facility] Ultrasound [address] [place] [address] Lino Bergeron MD [address] [place] [address] Discharge Disposition: Discharged to home or Selfcare Health Maintenance Due Date Last Done Comments Hepatitis C Virus (HCV) Screening 1969 TdaP Immunization 1969 Hepatitis B Immunization (1 of 3 - 19+ 3-dose series) 01/28/1988 Pap Smear 1990 Cervical Cancer Screening (CCS) 1999 HPV/Cotest 1999 Cologuard 2014 Colonoscopy 2014 Colorectal Cancer Screening 2014 Immunochemical Fecal Occult Blood 2014 Pneumococcal Immunization (50+ years) (2 of 2 - PCV) 07/27/2018 07/27/2017 Zoster Immunization (1 of 2) 2019 Mammogram 03/20/2022 03/20/2021 SARS-COV-2 Immunization (2 - season) 2024 02/26/2021 Influenza Immunization (Season Ended) 2025 10/27/2021, 09/04/2021, 07/27/2017, Additional history exists Respiratory Syncytial Virus (RSV) Immunization (Adult) (1 - 1-dose 75+ series) 01/28/2044 Pneumococcal Immunization Combined Discontinued 07/27/2017 Human Papillomavirus (HPV) Immunization Aged Out No longer eligible based on patient's age to complete this topic Meningococcal Immunization (ACWY) Aged Out No longer eligible based on patient's age to complete this topic Rotavirus Immunization Aged Out No lo nger eligible based on patient's age to complete this topic Procedures Procedure Name Priority Date/Time Associated Diagnosis Comments XR RIBS UNILATERAL WITH PA CHEST RIGHT STAT 04/26/2025 10:24 PM CDT GOLD TOP TUBE STAT 02/18/2025 8:00 PM [...] Recently Relevant to Health Maintenance Results * XR RIBS UNILATERAL WITH PA CHEST RIGHT (04/26/2025 10:24 PM CDT) Anatomical Region Laterality Modality Chest, Rib Right Digital Radiogra phy 04/26/2025 10:3 9 PM CDT Impressions 04/26/2025 10:41 PM CDT IMPRESSION: Mildly displaced fracture of the posterior aspect of the right 3rd rib. Narrative 04/26/2025 10:41 PM CDT EXAM DESCRIPTION: XR RIBS UNILATERAL WITH PA CHEST RIGHT REASON FOR STUDY: right rib injury TECHNIQUE: 3 view(s) of the right ribs with single view of the chest. COMPARISON: 02/18/2025 FINDINGS: LUNGS: No focal opacity, pleural effusion, or pneumothorax. HEART/MEDIASTINUM: Cardiac silhouette normal in size. Mediastinal and hilar contours appear normal. LINES/TUBES: None. BONES: There is a mildly displaced fracture of the posterior aspect of the right 3rd rib. THIS IS AN ELECTRONICALLY VERIFIED FINAL REPORT 04/26/2025 10:39 PM - Electronically signed by Bright Lala M.D. KH: SOL Report ID: [id number] Reading Location: [id number] Procedure Note Bright Lala MD - 04/26/2025 EXAM DESCRIPTION: XR RIBS UNILATERAL WITH PA CHEST RIGHT REASON FOR STUDY: right rib injury TECHNIQUE: 3 view(s) of the right ribs with single view of the chest. COMPARISON: 02/18/2025 FINDINGS: LUNGS: No focal opacity, pleural effusion, or pneumothorax. HEART/MEDIASTINUM: Cardiac silhouette normal in size. Mediastinal and hilar contours appear normal. LINES/TUBES: None. BONES: There is a mildly displaced fracture of the posterior aspect of the right 3rd rib. THIS IS AN ELECTRONICALLY VERIFIED FINAL REPORT 04/26/2025 10:39 PM - Electronically signed by Bright Lala M.D. KH: SOL Report ID: [id number] Reading Location: [place] [address] IMPRESSION: Mildly displaced fracture of the posterior aspect of the right 3rd rib. Arnold Lew MD IMG DIAGNOSTIC ORDERABLES Final Result * TROPONIN I, HIGH SENSITIVITY (HSTRP) (02/18/2025 8:00 PM CDT) Pathologist [facility] TROPONIN I, HIGH SENSITIVITY- [place] 8 <=14 ng/L 02/18/2025 9:43 PM CDT [facility] Comment: High-sensitivity troponin I results are reported in ng/L making the result appear to be 1,000 times higher than the contemporary troponin I value which is reported in ng/ml. Results from [place]. Blood Venipuncture / Unknown 02/18/2025 8:00 PM CDT 02/18/2025 8:58 PM CDT Dereck Carrington MD CHEMISTRY ORDERABLES Rina l Result Performing Organization Address City/[facility] Care [facility]/ZIP Co de Phone Number [facility] [address] [place] [address] * Gold Top Tube (02/18/2025 8:00 PM CDT) Blood No Phlebotomy Charged / Unknown 02/18/2025 8:00 PM CDT 02/18/2025 8:57 PM CDT Dereck Carrington MD CHEMISTRY ORDERABLES Rina l Result [facility] [address] [place] [address] * (ABNORMAL) CBC with Auto Differential (02/18/2025 8:00 PM CDT) [facility] WBC 4.56 4.00 - 12.00 10(3)/mcL 02/18/2025 9:02 PM CDT [facility] RBC 5.22 3.80 - 5.30 10(6)/mcL 02/18/2025 9:02 PM CDT [facility] HEMOGLOBIN (HGB) 16.4(H) 12.0 - 15.8 g/dL 02/18/2025 9:02 PM CDT [facility] HEMATOCRIT (HCT) 49.5(H) 36.0 - 47.0 % 02/18/2025 9:02 PM CDT [facility] MCV 94.8 82.0 - 96.0 fL 02/18/2025 9:02 PM CDT [facility] MCH 31.4 26.0 - 34.0 pg 02/18/2025 9:02 PM CDT [facility] MCHC 33.1 31.0 - 36.0 g/dL 02/18/2025 9:02 PM CDT [facility] PLATELET COUNT 106(L) 140 - 440 10(3)/[facility] 02/18/2025 9:02 PM CDT [facility] RDW 14.4 11.8 - 15.5 % 02/18/2025 9:02 PM CDT [facility] MPV 12.2 9.7 - 12.4 fL 02/18/2025 9:02 PM CDT [facility] NEUTROPHILS 66.0 47.0 - 73.0 % 02/18/2025 9:02 PM CDT [facility] LYMPHOCYTES 24.1 18.0 - 42.0 % 02/18/2025 9:02 PM CDT [facility] MONOCYTES 7.9 4.0 - 12.0 % 02/18/2025 9:02 PM CDT [facility] EOSINOPHILS 1.3 0.0 - 5.0 % 02/18/2025 9:02 PM CDT [facility] BASOPHILS 0.7 0.0 - 1.0 % 02/18/2025 9:02 PM CDT [facility] ABSOLUTE NEUTROPHILS 3.01 1.60 - 7.70 10(3)/[facility] 02/18/2025 9:02 PM CDT [facility] ABSOLUTE LYMPHOCYTES 1.10(L) 1.30 - 3.20 10(3)/[facility] 02/18/2025 9:02 PM CDT [facility] ABSOLUTE MONOCYTES 0.36 0.20 - 1.00 10(3)/[facility] 02/18/2025 9:02 PM CDT [facility] ABSOLUTE EOSINOPHIL 0.06 0.00 - 0.40 10(3)/[facility] 02/18/2025 9:02 PM CDT [facility] ABSOLUTE BASOPHILS 0.03 0.00 - 0.10 10(3)/[facility] 02/18/2025 9:02 PM CDT [facility] NRBC PER 100 WBC 0 02/19/20 25 9:02 PM CDT [facility] Blood Venipuncture / Unknown 02/18/2025 8:00 PM CDT 02/18/2025 8:57 PM CDT Dereck Carrington MD HEMATOLOGY ORDERABLES Fin al Result Performing Organization Address City/[facility] Care [facility]/ZIP Co de Phone Number [facility] [address] [place] [address] * Thyroid Stimulating Hormone (TSH) [id number] (02/18/2025 8:00 PM CDT) TSH 1.604 0.300 - 5.000 mIU/L 02/18/2025 9:43 PM CDT [facility] Blood Venipuncture / Unknown 02/18/2025 8:00 PM CDT 02/18/2025 8:58 PM CDT Dereck Carrington MD CHEMISTRY ORDERABLES Rina l Result [facility] [address] [place] [address] * (ABNORMAL) D-DIMER [id number] (02/18/2025 8:00 PM CDT) Pathologist [facility] D DIMER 1.62(H) <0.50 mcg/mL FEU 02/18/2025 9:17 PM CDT [facility] Blood Venipuncture / Unknown 02/18/2025 8:00 PM CDT 02/18/2025 8:58 PM CDT Narrative [facility] - 02/18/2025 9:17 PM CDT The FDA has approved this method to exclude the diagnosis of DVT and/or PE at the cutoff value of <0.50 mcg/mL FEU. us Dereck Carrington MD HEMATOLOGY ORDERABLES Fin al Result Performing Organization Address [facility]/State/ZIP Co de Phone Number [facility] [address] [place] [address] * (ABNORMAL) Comprehensive Metabolic Panel (Cmp) [id number] (02/18/2025 8:00 PM CDT) [facility] SODIUM 138 136 - 145 mmol/L 02/18/2025 9:28 PM CDT [facility] POTASSIUM 3.8 3.5 - 5.1 mmol/L 02/18/2025 9:28 PM CDT [facility] CHLORIDE 105 98 - 107 mmol/L 02/18/2025 9:28 PM CDT [facility] CO2, VENOUS 22 22 - 30 mmol/L 02/18/2025 9:28 PM CDT [facility] ANION GAP 14.8 <18.0 mmol/L 02/18/2025 9:28 PM CDT [facility] GLUCOSE 126(H) 70 - 99 mg/dL 02/18/2025 9:28 PM CDT [facility] BUN 8(L) 10 - 20 mg/dL 02/18/2025 9:28 PM CDT [facility] CREATININE, BLOOD 0.61 0.60 - 1.00 mg/dL 02/18/2025 9:28 PM CDT [facility] BUN/CREATININE RATIO 13 12 - 20 ratio 02/18/2025 9:28 PM CDT [facility] TOTAL PROTEIN 6.6 6.0 - 8.0 g/dL 02/18/2025 9:28 PM CDT [facility] ALBUMIN 3.6 3.5 - 5.0 g/dL 02/18/2025 9:28 PM CDT [facility] A/G RATIO 1.2 1.0 - 2.2 02/18/2025 9:28 PM CDT [facility] CALCIUM 9.0 8.7 - 10.5 mg/dL 02/18/2025 9:28 PM CDT [facility] T BILI 0.8 0.2 - 1.2 mg/dL 02/18/2025 9:28 PM CDT [facility] SGOT (AST) 29 <43 U/L 02/18/2025 9:28 PM T [facility] SGPT (ALT) 19 <56 U/L 02/18/2025 9:28 PM T [facility] ALKALINE PHOSPHATASE 154(H) 40 - 150 U/L 02/18/2025 9:28 PM CDT [facility] GFR, ESTIMATED >60 >=60 02/18/2025 9:28 PM T [facility] Comment: Creatinine Clearance is the preferred criteria for selecting drug dose adjustments in renally impaired patients. The GFR is provided as additional pertinent clinical information. GFR is reported in mL/min/1.73 sq m. Calculation based on the Chronic Kidney Disease Epidemiology Collaboration (CKD- EPI) equation refit without adjustment for race. GFR, EST. >60 >=60 025 9:28 PM CDT [facility] GFR, EST. NONAFRICAN >60 >=60 02/18/2025 9:28 PM CDT [facility] Blood Venipuncture / Unknown 02/18/2025 8:00 PM CDT 02/18/2025 8:58 PM CDT Dereck Carrington MD CHEMISTRY ORDERABLES Rina l Result Performing Organization Address City/[facility] Care [facility] Co de Phone Number [facility] [address] [place] [address] * (ABNORMAL) B-Type Natriuretic Peptide (BNP) (02/18/2025 8:00 PM CDT) B TYPE NATRIURETIC PEPTIDE 417(H) <100 pg/mL 02/18/2025 9:33 PM CDT [facility] Blood Venipuncture / Unknown 02/18/2025 8:00 PM CDT 02/18/2025 8:57 PM CDT Dereck Carrington MD CHEMISTRY ORDERABLES Rina l Result Performing Organization Address [facility] Co de Phone Number [facility] [address] [place] [address] * XR CHEST 2 VIEWS (02/18/2025 7:32 [...] Flynn Lopez M.D. LB: LB Report ID: [id number] Reading Location: [id number] Procedure Note Flynn Lopez MD - 02/18/2025 [...] Flynn Lopez M.D. LB: LB Report ID: [id number] Reading Location: [id number] IMPRESSION: Patchy consolidation projecting over the lower lobes on the lateral view may represent pneumonia in the appropriate clinical setting. Follow-up to ensure resolution is recommended. us Dereck Carrington MD IMG DIAGNOSTIC ORDERABLES Final Result * EKG 12 LEAD (02/18/2025 6:33 PM CDT) Ventricular Rate 97 BPM EXTERNAL EKG Atrial Rate 97 BPM EXTERNAL EKG P-R Interval 126 ms EXTERNAL EKG QRS Duration 114 ms EXTERNAL EKG Q-T Duration 354 ms EXTERNAL EKG QTC CALCULATION 449 ms EXTERNAL EKG P [place] 64 degrees EXTERNAL EKG R [place] 12 degrees EXTERNAL EKG T [place] 107 degrees EXTERNAL EKG 02/18/2025 6:33 PM CDT Impressions EXTERNAL EKG - 02/19/2025 4:57 PM CDT Normal sinus rhythm Possible Left atrial enlargement Low voltage QRS Possible Anterior infarct , age undetermined Abnormal ECG No previous ECGs available Confirmed by DAWN SHRESTHA ([id number]) on 02/19/2025 4:57:28 PM Narrative Procedure Note Dawn Shrestha MD - 02/19/2025 IMPRESSION: Normal sinus rhythm Possible Left atrial enlargement Low voltage QRS Possible Anterior infarct , age undetermined Abnormal ECG No previous ECGs available Confirmed by DAWN SHRESTHA ([id number]) on 02/19/2025 4:57:28 PM us Dereck Carrington MD IMG ECG ORDERABLES Final Result EXTERNAL EKG * EKG SCAN (02/18/2025 12:00 [...] exam. Electronically signed by: Mili edward/penrad:03/20/2021 16:07:07 Rehabilitation Attendant: Alissa MARCOS (R)), [facility] Normal Exam Reading [...] exam. Electronically signed by: Mili edward/penrad:03/20/2021 16:07:07 Rehabilitation Attendant: Alissa DAVIDSON)(Josué), [facility] letter sent: Normal Exam Reading location: [facility] BI-RADS: 1 Negative us Matilda Vital MD IMG MAMMO ORDERABLES Fin al Result from Last 3 Months or Most Recently Relevant to Health Maintenance Insurance MEDICAID [place] Care Teams Driller Hand Relationship Specialty Start Date End Date Amita Wisdom APRN, FREDDY [address] [place] [address] PCP - General Family Medicine 04/26/19
--- OUTSIDE RECORDS SUMMARY | 2025-05-03 01:04 | XMS_ITS | Clinical Summary ---
Author Organization [facility] [address] [facility] lto Address [address] [place] [address] Care Team Providers Care Maintenance Coordinator Name Role Phone Amita Wisdom NP Primary [...] - 03/29/2025 11:59 PM CDT Hospital Encounter [facility] [address] [place] [address] Anomalous aortic origin of coronary artery Discharge [...] on file Legal Sex Female 7:05 PM SALES MARKET LEADER Gender Identity Female 04/20/2023 1:07 PM CDT Sexual Orientation Not on file Obstetrics History Last Filed Vital Signs Vital Sign Reading Time Taken Comments Blood Pressure 130/75 03/29/2025 9:09 AM CDT Pulse 70 03/29/2025 9:09 AM CDT Temperature 36.8 C (98.2 F) 12/10/2021 9:30 AM SALES MARKET LEADER Respiratory Rate 24 12/10/2021 9:30 AM SALES MARKET LEADER Oxygen Saturation 96% 12/10/2021 9:30 AM SALES MARKET LEADER Inhaled Oxygen Concentration - - Weight 124.7 kg (275 lb) 12/10/2021 9:30 AM SALES MARKET LEADER Height 154.9 cm (5' 1) 12/10/2021 9:30 AM SALES MARKET LEADER Body Mass Index 51.96 12/10/2021 9:30 AM SALES MARKET LEADER Plan of Treatment Health Maintenance Due Date [...] Final Result from Last 3 Months Insurance [facility] Care Teams Maintenance Coordinator Relationship Specialty Start Date End Date Amita Wisdom NP [address] [place] [id number] PCP - General Nurse Practitioner 07/31/21
--- OUTSIDE RECORDS SUMMARY | 2025-05-03 01:04 | XMS_ITS | Clinical Summary ---
Author Organization [facility] [employer] Address [address] [place] [address] Care Team Providers Care Side Laster Tack Name Role Phone None, Physician Primary Care Provider Unavailabl e Source Comments [facility] [employer],non-owned Affiliates and Associated Physician Practices is amultiple site organization consisting of ambulatory clinics and hospital sitesin [place], [place] and [place]. This disclosure is being madepursuant to the Care Everywhere program and may not contain all information available regarding this patient. Last updated 18.[facility] [employer] Active Problems Problem Noted Date Diagnosed Date Fatty liver 05/15/2024 Overview (05/15/2024): 05/15/24 Fibroscan CAP 291, LSM 32.3 kPa Social History Tobacco Use Types Packs/Day Years Used Date Smoking Tobacco: Never Assessed Comments Unknown Sex and Gender Information Value Date Recorded Sex Assigned at Not on file Legal Sex Female 7:28 AM STAFFING MANAGER Gender Identity Not on file Sexual Orientation [...] COLON CA SCREENING 1969 LIPID TESTING 1969 HIV SCREENING 01/28/1984 HEPATITIS C SCREENING 01/23/1987 DTAP/TDAP/TD VACCINES (1 - Tdap) 01/28/1988 HEPATITIS B VACCINE (1 of 3 - 19+ 3-dose series) 01/28/1988 PAP SMEAR 1990 PAP with HPV 1999 PNEUMOCOCCAL VACCINE 50+ (1 of 1 - [...] patient's age to complete this topic Insurance [facility] Care Teams Side Laster Tack Relationship Specialty Start Date End Date None, Physician [address] [place] [address] PCP - General 05/15/24
--- OUTSIDE RECORDS SUMMARY | 2025-05-03 01:04 | XMS_ITS | Referral Summary ---
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 Gender Identity Female 04/20/2023 1:07 PM CDT Sexual Orientation Not on file Last Filed Vital Signs Vital Sign Reading Time Taken Comments Blood Pressure 130/75 03/29/2025 9:09 AM CDT Pulse 70 03/29/2025 9:09 AM CDT Temperature 36.8 C (98.2 F) 12/10/2021 9:30 AM ELEMENTARY CLASSROOM TEACHER Respiratory Rate 24 12/10/2021 9:30 AM ELEMENTARY CLASSROOM TEACHER Oxygen Saturation 96% 12/10/2021 9:30 AM ELEMENTARY CLASSROOM TEACHER Inhaled Oxygen Concentration - - Weight 124.7 kg (275 lb) 12/10/2021 9:30 AM ELEMENTARY CLASSROOM TEACHER Height 154.9 cm (5' 1) 12/10/2021 9:30 AM ELEMENTARY CLASSROOM TEACHER Body Mass Index 51.96 12/10/2021 9:30 AM ELEMENTARY CLASSROOM TEACHER Plan of Treatment Not on file Procedures [...] Final Result from Last 3 Months Insurance [facility] Care Teams Tumbling Machine Operator Relationship Specialty Start Date End Date Amita Wisdom NP [address] [place] [id number] PCP - General Nurse Practitioner 07/31/21
[2025-05-03 10:11] VITALS: BP 143/65; PULSE 78; RESP 18; TEMP 36.2; O2SAT 99; BMI 42.7
[2025-05-03] MEDS: LACTATED RINGERS 1,000 ML 150 ML IV CONT (10:14)
--- NOTE | 2025-05-03 10:21 | WPDANESEPPF ---
Anes - Initial Pre Proc Eval Procedure: Operation Date: 05/03/25 11:00 Proposed Procedures p Esophagogastroduodenoscopy - Lino Bergeron MD Date/Time: 05/03/25 10:21 Surgeon: Lino Bergeron MD Pre Op Diagnosis: cirrhosis of liver,abnormal levels of serum Patient Data Age: 55 Gender: F Height: 1.55 m Weight: 102.7 kg Last Vital Signs Temp 36.2 C L 05/03/25 10:11 Pulse 78 05/03/25 10:11 Resp 18 05/03/25 10:11 BP 143/65 H 05/03/25 10:11 Pulse Ox 99 05/03/25 10:11 O2 Del Method Room Air 05/03/25 10:11 Allergies Allergy/AdvReac Type Severity Reaction Status Date / Time moxifloxacin Allergy Unknown CAUSES Verified 05/03/25 10:07 PROBLEMS WITH HEART Penicillins Allergy Unknown BLISTERS Verified 05/03/25 10:07 ALL OVER BODY. Home Medications ?Medication ?Instructions ?Recorded ?Confirmed ?Type metoprolol succinate 50 mg 50 mg PO DAILY 10/24/19 05/03/25 History tablet,extended release 24 hr cetirizine 10 mg tablet 10 mg PO DAILY PRN Allergy Symptoms 12/21/21 05/03/25 History inhalational spacing device #1 ea 12/04/22 06/22/24 Rx (Aerochamber MV spacer) montelukast 10 mg tablet 10 mg PO DIRECTED 12/04/22 05/03/25 History dulaglutide 4.5 mg/0.5 mL 4.5 mg subcut WEEKLY 03/27/24 05/03/25 History subcutaneous pen injector (Trulicity) losartan 25 mg tablet 25 mg PO DAILY 03/27/24 05/03/25 History phentermine 30 mg capsule 30 mg PO DAILY 03/27/24 05/03/25 History oxybutynin chloride 2.5 mg tablet 2.5 mg PO DAILY 06/22/24 05/03/25 History omeprazole 20 mg capsule,delayed See Rx Instructions .Route 09/26/24 05/03/25 Rx release .COMPLEX #180 caps albuterol sulfate 90 mcg/actuation 2 inh inhalation Q4-6H PRN 04/25/25 04/25/25 History aerosol inhaler shortness of breath or wheezing aspirin 81 mg tablet,delayed 81 mg PO DAILY 04/25/25 05/03/25 History release (Adult Low Dose Aspirin) fluconazole 150 mg tablet 150 mg PO .COMPLEX PRN when on 04/25/25 04/25/25 History antibiotics fluticasone propionate 50 2 spray intranasal Q12H PRN nasal 04/25/25 04/25/25 History mcg/actuation nasal congestion spray,suspension magnesium 1 tablet PO DAILY 04/25/25 05/03/25 History potassium chloride 20 mEq 20 meq PO DAILY 04/25/25 05/03/25 History tablet,extended release Patient hx anesthesia problems: none Family hx anesthesia problems: none Results Review: All pre-operative results and documents have been reviewed as part of the pre-operative evaluation. [facility] Past Medical History Medical History Colon cancer screening Barretts esophagus Elevated liver enzymes Change in voice Cirrhosis Tobacco use Obese History of myocarditis Hepatosplenomegaly GERD (gastroesophageal reflux disease) Hypertension Hyperlipidemia Diabetes COPD (chronic obstructive pulmonary disease) Surgical History Surgical History Previous section Family History Family History Father Acute myocardial infarction Social History Social History Smoking packs per day: 0.5 Smoking cigarettes per day: 10.0 Years smoked: 30 Smoking pack-years: 15.00 Smoking status: Current every day smoker Tobacco type: cigarettes Alcohol intake: current Alcohol use details: social Substance use: never Substance use type: does not use Living arrangements: alone Gender identity (if verbalized by the patient): Female Sexual Orientation (if Verbalized by the Patient): Straight or Heterosexual Spiritual care concerns: No Anes - Eval Final PreProcedure Day of Procedure 05/03/25 10:21 Patient weight: morbidly obese Heart: regular rate and rhythm Lungs: decreased breath sounds Airway: Mallampati scale class III Neurological: alert and oriented Last oral intake: >/= 8 hours ASA classification: IV Emergent: no Anesthetic plan: proceed Anesthesia type and monitoring: general GIVS and standard monitoring Results Review: All pre-operative results and documents have been reviewed as part of the pre-operative evaluation. Informed Consent: The patient's anesthetic plan and its attendant risks and benefits were discussed with the patient/family/POA. Questions were solicited and answers provided to the satisfaction of the patient/family/POA.
[2025-05-03 10:32] LABS: Glucose Point of Care 165 mg/dl (65-105)
--- NOTE | 2025-05-03 10:53 | PM.HPGS ---
History of Present Illness History of Present Illness Consent: Risks, benefits, and alternatives have been discussed and questions answered. Patient agrees to proceed with procedure. Chief complaint: cirrhosis of liver,abnormal levels of serum Narrative: Candida aBles is a 55 year old female here for egd, h/o cirrhosis, no gib Review of Systems Review of Systems: All systems reviewed & are unremarkable except as noted in HPI and below PMFSH Past Medical History Medical History Colon cancer screening Barretts esophagus Elevated liver enzymes Change in voice Cirrhosis Tobacco use Obese History of myocarditis Hepatosplenomegaly GERD (gastroesophageal reflux disease) Hypertension Hyperlipidemia Diabetes COPD (chronic obstructive pulmonary disease) Surgical History Surgical History Previous section Family History Family History Father Acute myocardial infarction Social History Social History Smoking packs per day: 0.5 Smoking cigarettes per day: 10.0 Years smoked: 30 Smoking pack-years: 15.00 Smoking status: Current every day smoker Tobacco type: cigarettes Alcohol intake: current Alcohol use details: social Substance use: never Substance use type: does not use Living arrangements: alone Gender identity (if verbalized by the patient): Female Sexual Orientation (if Verbalized by the Patient): Straight or Heterosexual Spiritual care concerns: No Meds Home Medications and Allergies Home Medications ?Medication ?Instructions ?Recorded ?Confirmed ?Type metoprolol succinate 50 mg 50 mg PO DAILY 10/24/19 05/03/25 History tablet,extended release 24 hr cetirizine 10 mg tablet 10 mg PO DAILY PRN Allergy Symptoms 12/21/21 05/03/25 History inhalational spacing device #1 ea 12/04/22 06/22/24 Rx (Aerochamber MV spacer) montelukast 10 mg tablet 10 mg PO DIRECTED 12/04/22 05/03/25 History dulaglutide 4.5 mg/0.5 mL 4.5 mg subcut WEEKLY 03/27/24 05/03/25 History subcutaneous pen injector (Trulicity) losartan 25 mg tablet 25 mg PO DAILY 03/27/24 05/03/25 History phentermine 30 mg capsule 30 mg PO DAILY 03/27/24 05/03/25 History oxybutynin chloride 2.5 mg tablet 2.5 mg PO DAILY 06/22/24 05/03/25 History omeprazole 20 mg capsule,delayed See Rx Instructions .Route 09/26/24 05/03/25 Rx release .COMPLEX #180 caps albuterol sulfate 90 mcg/actuation 2 inh inhalation Q4-6H PRN 04/25/25 04/25/25 History aerosol inhaler shortness of breath or wheezing aspirin 81 mg tablet,delayed 81 mg PO DAILY 04/25/25 05/03/25 History release (Adult Low Dose Aspirin) fluconazole 150 mg tablet 150 mg PO .COMPLEX PRN when on 04/25/25 04/25/25 History antibiotics fluticasone propionate 50 2 spray intranasal Q12H PRN nasal 04/25/25 04/25/25 History mcg/actuation nasal congestion spray,suspension magnesium 1 tablet PO DAILY 04/25/25 05/03/25 History potassium chloride 20 mEq 20 meq PO DAILY 04/25/25 05/03/25 History tablet,extended release Allergies Allergy/AdvReac Type Severity Reaction Status Date / Time moxifloxacin Allergy Unknown CAUSES Verified 05/03/25 10:07 PROBLEMS WITH HEART Penicillins Allergy Unknown BLISTERS Verified 05/03/25 10:07 ALL OVER BODY. Vital Signs Vital Signs - 24 hr 05/03/25 10:11 Temperature 97.2 F L Pulse Rate 78 Respiratory Rate 18 Blood Pressure 143/65 H Pulse Oximetry 99 Oxygen Delivery Room Air Exam Const: General: comfortable and no acute distress HENMT: Face/Nose/Sinus: Normal nares present Eyes: General: appearance normal, both eyes and all related structures Neck: Neck: no JVD Resp: Auscultation: clear to auscultation bilaterally Cardio: Rate: regular rate Rhythm: regular rhythm GI: Inspection: non-distended GI Palp: Yes Soft to palpation Skin: General skin exam: normal color Neuro: General: gait normal Speech: normal speech Extrem: General: normal to inspection Psych: Mental Status: mental status grossly normal Assessment and Plan Assessment and plan (1) Cirrhosis: Code(s): K74.60 - Unspecified cirrhosis of liver Status: Acute Assessment and Plan: egd to assess if varices
[2025-05-03 11:04] VITALS: BP 126/63; PULSE 101; RESP 22; O2SAT 95
[2025-05-03 11:14] VITALS: BP 121/63; PULSE 85; RESP 26; O2SAT 97
[2025-05-03 11:24] VITALS: BP 116/74; PULSE 76; RESP 21; O2SAT 100
== END 2025-05-03 11:36 | disposition home or self-care (01) ==
PROVIDERS: PCP Nurse Practitioner Family; Referring Provider Internal Medicine Gastroenterology; Visit Provider Internal Medicine Gastroenterology
PROC: 0DJ08ZZ Inspection of Upper Intestinal Tract, Via Natural or Artificial Opening Endoscopic (ICD-10-PCS; CPT 43235; principal; 2025-05-03 11:00)
DX: K74.60 Unspecified cirrhosis of liver (principal); I85.10 Secondary esophageal varices without bleeding; K22.70 Barrett's esophagus without dysplasia; K44.9 Diaphragmatic hernia without obstruction or gangrene; K29.70 Gastritis, unspecified, without bleeding; F17.210 Nicotine dependence, cigarettes, uncomplicated; E66.01 Morbid (severe) obesity due to excess calories; Z68.41 Body mass index [BMI] 40.0-44.9, adult
CPT/HCPCS: 43235; 82948; J2003; J2704; J7120